=== PATIENT | male | born 1955 | race Caucasian/White ===

== ENCOUNTER 2019-06-18 07:14 | Outpatient (CLI) | payer OTHER, SELFPAY ==
[2019-06-18 07:33] VITALS: BMI 30.5
--- NOTE | 2019-06-18 07:37 | NMCV_ITS ---
NM tereza perf SPECT r/s* [id number] Dominick Garay Age: 64 Gender: M : 1955 Exam Date: 06/18/2019 08:29 Ordering Phys: Galdino Ro MD ([email or web address]) Technologist: CLAUDIA Sanders Exam Location: [facility] Indications: Chest pain STRESS TEST Please [facility] IMAGE PROTOCOL Rest/Stress 1 Lexiscan Day Radiopharmaceutical Dose (mCi) Administration Site Administered by Rest: Tc-99m 10.6 IV CLAUDIA Sanders Sestamibi Stress:Tc-99m 32.9 IV CLAUDIA Sanders Sestamilarisa Rest: 18-Jun-2019 60 Discovery 630 Stress: 18-Jun-2019 60 Discovery 630 0.4mg Lexiscan. Supine position only as patient was unable to lay prone. SPECT RESULTS Technical Quality: Good Raw Data Analysis: Normal Image Corrections: No attenuation or motion correction applied Summed Stress Score: 4 Summed Rest Score: 1 Summed Difference Score: 3 PERFUSION FINDINGS Small to moderate area of decreased tracer uptake in the mid inferolateral, mid anterolateral and apical lateral region with significant reversibility FUNCTIONAL RESULTS (calculated via Gated SPECT) Stress Image LV EF (%): 54 Stress EDV (mL):127 TID: 1.05 Stress ESV (mL):59 FUNCTIONAL FINDINGS: Segmental wall motion analysis revealing mild diffuse hypokinesia of the septum IMPRESSIONS #1. Myocardial perfusion imaging revealing a small to moderate area of reversible defect in the lateral wall region, suggestive of ischemia in the distribution of the left circumflex artery. #2. Normal LV ejection fraction of 54%. #3. LV wall motion analysis revealing mild diffuse hypokinesia of the septum. #4. Slightly elevated LV cavity with an end-systolic volume of 59 mL. No similar previous studies are available for comparison Dr Galdino Ro MD FAC (Electronically Signed) Final Date: 18 June 2019 20:46 S
--- NOTE | 2019-06-18 07:37 | ECG_ITS ---
NAME OF STUDY: LEXISCAN SESTAMIBI STRESS TEST INDICATION: Chest Pain at Rest PROCEDURE: At the baseline, the EKG revealed normal sinus rhythm with normal ST-T's. The baseline blood pressure was 153/75 mm Hg with a heart rate of 82 beats/min. Lexiscan was infused over a period of 20 seconds. A total of 0.4 milligrams of Lexiscan was infused. The stress phase was continued for a total of 5 minutes. Heart rate at the end of the stress phase was 94 with a blood pressure 143/67. The EKG at the peak infusion revealed no significant changes. Sestamibi was injected 20 seconds after the Lexiscan infusion. Blood pressure at the end of the recovery phase was 152/74 with a heart rate of 92 per minute. CONCLUSION: 1. No significant EKG changes with the LexiScan infusion 2. No LexiScan induced chest pain or cardiac arrhythmia 3. Normal blood pressure and heart rate response 4. Sestamibi/sestamibi perfusion scan pending; see separate report. Electronically Signed On 06-20-2019 15:07:27 MEAT AND SEAFOOD CLERK by Galdino Ro M.D. [email or web address]
[2019-06-18] MEDS: regadenoson 0.4 Mg/5 ml Syringe IVP (10:27)
--- NOTE | 2019-06-18 10:29 | SUR.PREOP ---
Patient reports no pain or discomfort prior to the start of the procedure.
[2019-06-18 10:36] VITALS: BP 144/67; PULSE 93
== END 2019-06-18 07:15 | disposition home or self-care (01) ==
LOC: CDL 07:18
PROVIDERS: Family Provider Family Medicine; PCP Family Medicine; Visit Provider Internal Medicine Cardiovascular Disease
DX: R07.89 Other chest pain (principal)
CPT/HCPCS: 78452; 93017; A9500; J2785

== ENCOUNTER 2019-07-16 10:17 | Outpatient (CLI) | payer OTHER, SELFPAY ==
--- NOTE | 2019-07-16 10:15 | USCV_ITS ---
GarayDominick goff Age: 64 Gender: M : 1955 Exam Date: 07/16/2019 10:37 Ordering Phys: Galdino Ro MD ([email or web address]) Technologist: Arden Hester Exam Location: [facility] Indication: CVA 2 YEARS AGO Risk Factors: Previous Vascular Surgery: Right Brachial BP: / Left Brachial BP: / Right Left Velocity (cm/s) Spectral Plaque Velocity (cm/s) Spectral Plaque Syst/Diast Broadening Syst/Diast Broadening 83.60/ 23.10 Prox CCA 80.90 / 20.60 46.20/ 9.50 Mid CCA 46.90 / 12.40 61.60/ 12.50 Hetro Distal CCA 69.70 / 16.70 47.60/ 12.70 Hetro Prox ICA 56.70 / 13.80 49.90/ 18.60 Mid ICA 60.60 / 14.60 69.90/ 23.60 Distal ICA 82.80 / 18.40 94.50 Hetro ECA 81.30 1.51 ICA/CCA 1.77 Antegrade Vertebral Antegrade 61.10/ 16.00 cm/s 43.50/ 10.50 cm/s Bi Subclavian Tri 133.0 180.2 0 0 FINDINGS Moderate heterogeneous irregular plaques at the bifurcation and proximal internal carotid arteries bilaterally. Intimal thickening and minimal plaques in the common carotid arteries bilaterally. Antegrade flow in the vertebral arteries bilaterally. Normal Doppler flow velocities in the external carotid arteries bilaterally CONCLUSIONS Moderate heterogeneous irregular plaques at the bifurcation and proximal internal carotid arteries bilaterally with increased velocity ratios, consistent with 16-49% stenosis bilaterally. Intimal thickening and minimal plaques in the common carotid arteries bilaterally. No previous studies are available for comparison. Dr Galdino Ro MD [facility] (Electronically Signed) Final Date: 17 July 2019 21:35 S
== END 2019-07-16 10:18 | disposition home or self-care (01) ==
LOC: RAD 10:24
PROVIDERS: Family Provider Family Medicine; PCP Family Medicine; Visit Provider Internal Medicine Cardiovascular Disease
DX: I65.23 Occlusion and stenosis of bilateral carotid arteries (principal)
CPT/HCPCS: 93880

== ENCOUNTER 2019-07-24 15:04 | Observation (INO) | payer OTHER, SELFPAY ==
[2019-07-24] VITALS (33 sets, daily range): BP systolic 133–173; BP diastolic 65–95; PULSE 72–84; RESP 14–24; TEMP 36.7–36.9; O2SAT 94–99; BMI 30.5
--- NOTE | 2019-07-24 05:35 | XR_ITS ---
WS: [id number] Chest 2 views, 07/24/2019 Clinical Data: chest pain Comparison: Portable chest, 09/07/2016 Findings: No nodules, masses or effusions are seen. The heart is normal. The pulmonary vascularity is not increased. No pneumonia or pneumothorax is seen. There is a small electronic device overlying th e left cardiac border. The aortic arch and descending aorta show minimal tortuosity. XR/XR chest 2V* [id number] Impression: Atherosclerosis
[2019-07-24 06:07] LABS: Basophils % 0.5 %; Eosinophils # 0.2 10^3/uL (0.0-0.8); Hematocrit 40.9 % (42.0-52.0); Hemoglobin 13.7 g/dL (11.7-16.6); Lymphocytes % 33.5 %; Mean Corpuscular HGB Conc 33.5 g/dL (30.0-36.0); Mean Corpuscular Hemoglobin 30.6 pg (28.0-34.0); Mean Corpuscular Volume 91.5 fL (80-94); Mean Platelet Volume 9.6 fL (7.4-10.4); Monocytes # 0.6 10^3/uL (0.2-0.9); Monocytes % 10.3 %; Neutrophils # 3.2 10^3/uL (1.8-7.7); Neutrophils % 52.4 %; Nucleated Red Blood Cells % 0 %; Platelet Count 417 10^3/cmm (130-400); Red Blood Count 4.47 10^6/uL (4.1-5.3); Red Cell Distribution Width 12.7 % (12.1-15.1); White Blood Count 6.1 10^3/uL (4.0-10.0)
--- NOTE | 2019-07-24 06:07 | SUR.PREOP ---
Patient arrived early today (05) at ordering MD request for preoperative blood work. Drawn as ordered. Patient prepped and ready for cath procedure by 0615. Procedure to start at 0700. Family/patient aware. Call light placed within reach. Informed to call for needs.
[2019-07-24 06:10] LABS: INR 0.93 (0.8-1.2)
[2019-07-24] MEDS: diphenhydrAMINE 50 mg Capsule PO (06:14)
[2019-07-24 06:23] LABS: Anion Gap 15.7 (5-19); Blood Urea Nitrogen 14 mg/dL (8-23); Carbon Dioxide 26 mmol/L (22-29); Chloride 101 mmol/L (98-107); Glucose 416 mg/dL (65-115); Osmolality Calculated 302 mOsm/kg (285-295); Potassium 3.7 mmol/L (3.5-5.1); Sodium 139 mmol/L (136-145)
--- NOTE | 2019-07-24 07:00 | XACV_ITS ---
Ht: 178 cm Wt: 97 kg BSA: 2.21 m2 Gender: Male : 1955 Any Known Allergies: Other Exam Priority: Routine Procedure(s): Procedure Description: Diagnostic procedure Procedure Description: PCI procedure Procedure Description: Left Heart Catheterization Procedure Description: Drug Eluting Coronary Stent Procedure Description: PTCA Procedure Description: Miscellaneous Procedure Description: ACT Procedure Description: Coronary Angiography Diagnostic Cath Status: Elective Diagnostic Findings The left main is a medium to large caliber vessel with no significant stenotic lesions. The left artery descending artery is a medium caliber vessel which appears to wrap around the LV apex. The mid LAD was found to have mild diffuse disease. The distal area was found to have minimal intimal irregularities. No significant stenotic lesions. The left circumflex artery is a medium caliber dominant vessel which appears to gives off a large obtuse marginal branch. This branch was found to have a proximal eccentric around 85% lesion. The distal segment of this artery was found to have mild diffuse disease. The right coronary artery is a medium caliber vessel which was found to have a widely patent stented segment at the midportion. The PLV branch was found to have moderate diffuse narrowing of the mid segment. The PDA branch was found to have mild to moderate diffuse disease. PCI Status: Elective PCI Indication: New Onset Angina <= 2 months Interventional Findings Indication for coronary angiogram: Abnormal stress test. Successful PCI to mid OM. Lesion was prepared with 2.0 x 15 mm AB TREK balloon, followed by deployment of KELLEN INTEGRITY 3.0 x 15 mm stent posted at high ANSELMO of 14 to ensure proper approximation. Excellent angiographic result with SE-3 flow was achieved. . Conclusions This is a 64-year-old white male with history of hypertension, diabetes, coronary artery disease, status post PCI of the RCA lesion in 2017, presented with increasing fatigue/dyspnea on exertion and chest pain. Myocardial perfusion imaging revealed a moderate area of ischemia in the distribution of the left circumflex artery. For further evaluation of his coronary status, a cardiac catheterization was recommended. Patient underwent left heart catheterization with left and right coronary angiogram today. The findings are as follows. There was a high-grade lesion in the first obtuse marginal branch of the circumflex artery. The stented segment of the right coronary artery was found to be patent. Mild to moderate diffuse disease in the other vessels. The LVEDP was 12 mmHg. Recommendations I discussed the cardiac catheterization data with Dr. Villa. Based on the above findings, it was thought to be appropriate to consider PCI of the circumflex artery lesion. Dr. Villa agreed with this plan. He took over further management of this patient at this point. 1-Return to inpatient for close monitoring and routine cath care2-Risk factor modification for secondary prevention3-Statin and aspirin 81 mg life-long, if tolerated4-Continue Plavix 75mg p.o. daily for at least one year. We will assess at the end of one year again to continue if further or not5-Continue optimal medical management6-Follow up with Dr. Ro in four weeks and your primary care in 10 days. Diagnostic RX Recommendation: PCI w/o planned CABG Pressures Phase:Rest AO : 105 mmHg / 58 mmHg ( 79 mmHg ) @ 1:06:00 AM 150 mmHg / 9 mmHg ( 43 mmHg ) @ 1:12:00 AM 138 mmHg / 36 mmHg ( 78 mmHg ) @ 1:13:00 AM 141 mmHg / 63 mmHg ( 93 mmHg ) @ 1:33:00 AM 135 mmHg / 62 mmHg ( 92 mmHg ) @ 1:44:00 AM 157 mmHg / 84 mmHg ( 117 mmHg ) @ 3:18:00 AM LV : 159 mmHg / -3 mmHg / @ 1:12:00 AM Clinical Evaluation EBL: 5mL-10mL Procedural Details Procedure Consent Obtained. Pre-Procedure Time Out. Identified patient by full name and date of as verbalized by the patient/guarantor. Does the consent match the physician's order: Yes. Accurate & Complete Informed Consent: Yes. Inpatient/Outpatient History & Physical on Chart: Yes. If H&P is completed, is and addenduem needed: No; If yes, is the addendum complete: N/A. Visualize and Verify Site with Patient/Guarantor: N/A. Relevant Radiology Images available: N/A. Pre-op teaching completed and patient verbalized understanding. The risks, benefits, and alternatives of sedation and/or procedure were discussed by physician. The patient agrees to continue. Procedure started. [facility] Clinical Fraility Score: 3: Managing Well. 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 Chest Pain Symptom Assessment: Typical Angina Symptoms. Cardiovascular Instability: No. Correct patient, site and procedure confirmed by cath team. PERRLA. Strong, equal hand application assistant bilaterally. Lungs clear x 5 lobes. IV Site on Arrival: 20 gauge in the left forearm. IV Fluids: 0.9% NaCl at KVO. 0 mL infused prior to yard labor supervisor. Pre Procedural Pulses: bilateral dorsalis pedis was 3+. Pre Procedural Pulses: bilateral posterior tibial was 3+. Pre Procedural Pulses: bilateral radial was 3+. Oxygen started at 2liters/min via nasal canula. bilateral groins was prepped with chloroprep then draped in the usual sterile fashion. Physician arrived. Baseline sample Acquired. HR: 79 BPM. Equipment: 5F - Radial. Cardiac Cath Pack. ACIST Manifold Kit Model BT 2000. Heparinized Saline (2 units/mL), 1000 mL bag. Physician scrubbed in. Immediate Pre-Procedure Time Out. Correct Patient: Yes; Correct Procedure: Yes; Correct Site: Yes; Correct Patient Position: Yes; Correct Supplies: Yes; Dried Flammable Prep: Yes; Blood Products Available: N/A;. Lidocaine 1% infiltrated to the right radial. Arterial access obtained. A Valeritasumo 5 Fr Marcos Radial Catheter, 110cm was advanced over the wire and used for Left coronary angiography. Multiple views taken of left coronary artery. Called Dr Monahan to come view pictures. Catheter redirected to the RCA. Catheter removed over the exchange wire. A CRD 5F JR4 Diagnostic Catheter was advanced over the wire and used for Right coronary angiography. Dr Monahan arrived. EDP Sample taken: LV 159/-4,12; HR: 80 BPM; SpO2: 95%. Pullback taken: LV Off; AO Off; Mean: , Peak to Peak: , SEP: ; HR: 80 BPM; SpO2: 95%. Family updated. Dr Ro calling to Dr Villa to come for intervention. Side port of sheath attached to Normal Saline flush at KVO to maintain patency. Dr Villa arrived. Dr. Villa scrubbed in to perform intervention. Inventory is Agile Energygar XT .014 190cm Str. Guidewire. Inventory is CRD 6 FR XB 3.5 GUIDE. 6 ivorian XB 3.5 guide catheter was inserted over the wire. Unable to seat guide catheter. Guide catheter out. Inventory is CRD 6FR JL 4 GUIDE. 6 ivorian JL 4 guide catheter was inserted over the wire. Unable to seat Guide. Guide catheter out. Inventory is CRD 6FR AL .75 GUIDE. 6 ivorian AL 0.75 guide catheter was inserted over the wire. Patient's family updated. Inventory is CRD 6FR XB 3 GUIDE. 6 ivorian XB 3 guide catheter was inserted over the wire. [place] guidewire was advanced through the guide catheter to lesion in the mid Circ. Inflation number : 1 A AB MINI TREK 2.00X15 RX BALLOON was prepped and advanced across the Mid CX , then inflated to 8 ANSELMO for 0:10 seconds. Inflation number: 2 The AB MINI TREK 2.00X15 RX BALLOON was reinflated across the Mid CX, to 12 ANSELMO for 0:09 seconds. Balloon out. Inflation Number : 3 A MDT R KELLEN 3.0X15 AUDREY -Lot Number# [id number] (exp date 04/10/2021) was prepped and advanced across the Mid CX. The stent was deployed at 12 ANSELMO for 0:16 seconds. Results checked. Stent balloon and wire out. ACT drawn. Results 170 seconds. Therapeutic limits - pre-heparin administration 90-150 seconds and monitoring heparin during a vascular procedure >250 seconds. Guide catheter out. Physician scrubbed out. A TR Band was successful obtaining hemostatsis at the Right Radial artery insertion site. TR band placed. Hemostasis obtained. Post Procedure: Pulses reassessed and unchanged. PERRLA. Strong, equal hand application assistant bilaterally. No VTE prophylaxis required. Total IV fluids: 118 mL. Medication's Wasted: Lidocaine 1% = 18 mL. Medication's Wasted: Heparin = 4000 units. Medication's Wasted: Nitro = 49.8 mg. Complications: none. Estimated blood loss: 5mL-10mL. Procedure completed. Patient transferred by wheelchair to CPRU. Vital chart was stopped. Site: Right Radial artery Sheath Size: 6 Fr Hemostasis Method: TR Band Hemostasis Success: Successful Procedure Medications Start: 6:47 AM Stop: 6:47 AM Medication: Fentanyl Amount: 50 mcg Route: I.V. Start: 6:50 AM Stop: 6:50 AM Medication: Versed Amount: 1 mg Route: I.V. Start: 6:50 AM Stop: 6:50 AM Medication: Fentanyl Amount: 50 mcg Route: I.V. Start: 6:57 AM Stop: 6:57 AM Medication: Versed Amount: 1 mg Route: I.V. Start: 7:02 AM Stop: 7:02 AM Medication: Verapamil Amount: 5 mg Route: I.A. Start: 7:02 AM Stop: 7:02 AM Medication: Nitrogylcerin Amount: 200 mcg Route: I.A. Start: 7:39 AM Stop: 7:39 AM Medication: Versed Amount: 1 mg Route: I.V. Start: 7:39 AM Stop: 7:39 AM Medication: Fentanyl Amount: 50 mcg Route: I.V. Start: 7:45 AM Stop: 7:45 AM Medication: Heparin Amount: 3000 units Route: I.V. Start: 7:20 AM Stop: 7:20 AM Medication: Versed Amount: 1 mg Route: I.V. Start: 7:04 AM Stop: 7:04 AM Medication: Heparin Amount: 5000 units Route: I.V. Start: 8:07 AM Stop: 8:07 AM Medication: Heparin Amount: 1000 units Route: I.V. Start: 8:17 AM Stop: 8:17 AM Medication: Versed Amount: 1 mg Route: I.V. Start: 8:22 AM Stop: 8:22 AM Medication: Heparin Amount: 3000 units Route: I.V. Start: 8:28 AM Stop: 8:28 AM Medication: Plavix Amount: 300 mg Route: P.O. I, the attending physician, have reviewed and verified all procedure medications. Yes, all medications given per verbal order History/Risk Factors Hypertension: Yes Dyslipidemia: Yes Diabetic Therapy: Insulin Peripheral Arterial Disease (PAD): No Myocardial Infarction (UT): No Obesity: Yes Renal Disease: No Tobacco Use: Never Prior Interventions PCI: No CABG: No Valve Surgery: No Report Signatures Interventional Workflow - Finalized by: Levon Villa MD on 07/27/2019 9:00:17 PM Diagnostic Workflow - Finalized by:Dr Galdino Ro MD [facility] on 07/24/2019 9:47:47 AM
--- NOTE | 2019-07-24 08:30 | SUR.PHASEI ---
POST PROCEDURE NOTE Patient to CPRU-3 via wheelchair. Status post left heart cath via the right radial approach. TR band in place- no hematoma or s/s of active bleed. Verbal post cath instructions given to the patient/family. Verbalized understanding. See PRE/POST CATH FLOWSHEET FOR DETAILS OF ASSESSMENT.
[2019-07-24] MEDS: metoprolol tartrate 50 mg Tablet PO ×2 (09:33→18:03)
[2019-07-24] MEDS: meloxicam 7.5 mg tablet PO (09:33)
[2019-07-24] MEDS: hydroCHLOROthiazide 25 mg Tablet PO (09:33)
[2019-07-24] MEDS: cholecalciferol (vitamin D3) 1,000 unit Tablet 1000 UNIT PO (09:33)
[2019-07-24] MEDS: lisinopril 20 mg Tablet 40 MG PO (09:34)
[2019-07-24] MEDS: montelukast sodium 10 mg Tablet PO (09:34)
[2019-07-24] MEDS: ferrous gluconate 324 mg Tablet PO (09:35)
[2019-07-24] MEDS: gabapentin 400 mg Capsule 1200 MG PO ×2 (09:35→21:02)
[2019-07-24] MEDS: gemfibrozil 600 mg Tablet PO ×2 (09:35→18:03)
[2019-07-24] MEDS: pantoprazole DR 40 mg Tablet PO (09:35)
[2019-07-24] MEDS: insulin glargine 100 units/1 mL 60 UNIT SUBCUT ×2 (09:57→18:22)
[2019-07-24 09:59] LABS: Glucose Point of Care 265 mg/dL (70-110)
[2019-07-24] MEDS: amlodipine 5 mg Tablet PO (10:00)
[2019-07-24] MEDS: cetirizine 10 mg Tablet PO (10:00)
--- NOTE | 2019-07-24 10:30 | SUR.PHASEI ---
TR BAND TR Band deflated per protocol. No hematoma or s/so of active bleed at this time.
--- NOTE | 2019-07-24 11:44 | SUR.PHASEI ---
TR BAND DOWN TR Band down per protcol and removed. No hematom noted.
[2019-07-24] MEDS: cyclobenzaprine 10 mg Tablet PO (21:02)
[2019-07-24] MEDS: zolpidem 5 mg Tablet PO (21:02)
[2019-07-24] MEDS: latanoprost 0.005% Op Soln 2.5 mL Btl OPHTHALMIC (21:04)
[2019-07-25 01:07] LABS: Glucose Point of Care 341 mg/dL (70-110)
[2019-07-25 03:00] VITALS: BP 137/75; PULSE 82; RESP 18; TEMP 36.9; O2SAT 95
[2019-07-25] MEDS: sodium chloride 0.9% 1,000 ML 100 ML IV (04:47)
--- NOTE | 2019-07-25 06:10 | PC.NURSE ---
TR BAND WAS ALREADY REMOVED. THERE WAS A 2X2 OVER THE SITE AND WRAPPED WITH COBAN. DRESSING WAS C/D/I. NO HEMATOMA PRESENT. WILL CONTINUE TO MONITOR.
[2019-07-25 07:00] VITALS: BP 137/79; PULSE 85; RESP 17; TEMP 37; O2SAT 94
[2019-07-25 07:11] LABS: Glucose Point of Care 200 mg/dL (70-110)
[2019-07-25] MEDS: lisinopril 20 mg Tablet 40 MG PO (09:29)
[2019-07-25] MEDS: meloxicam 7.5 mg tablet PO (09:29)
[2019-07-25] MEDS: ferrous gluconate 324 mg Tablet PO (09:29)
[2019-07-25] MEDS: metoprolol tartrate 50 mg Tablet PO (09:30)
[2019-07-25] MEDS: gemfibrozil 600 mg Tablet PO (09:30)
[2019-07-25] MEDS: hydroCHLOROthiazide 25 mg Tablet PO (09:30)
[2019-07-25] MEDS: cetirizine 10 mg Tablet PO (09:30)
[2019-07-25] MEDS: cholecalciferol (vitamin D3) 1,000 unit Tablet 1000 UNIT PO (09:30)
[2019-07-25] MEDS: clopidogrel 75 mg Tablet PO (09:30)
[2019-07-25] MEDS: montelukast sodium 10 mg Tablet PO (09:30)
[2019-07-25] MEDS: pantoprazole DR 40 mg Tablet PO (09:30)
[2019-07-25] MEDS: gabapentin 400 mg Capsule 1200 MG PO (09:30)
[2019-07-25] MEDS: amlodipine 5 mg Tablet PO (09:30)
[2019-07-25] MEDS: insulin glargine 100 units/1 mL 60 UNIT SUBCUT (09:31)
--- NOTE | 2019-07-25 10:34 | PC.CHAP ---
Pastoral Care Encounter/Spiritual Assessment Type of Contact [] Declined housekeeping coordinator visit [] Patient/Family/Request visit [] Outpatient visit [] Follow-up visit [] Physician referral [] Code/Alert [] Routine visit [] Staff referral [] Actively dying [x] Patient sleeping [] Family support [] [] Out of room [] Palliative care [] [] Receiving care in room [] Pre-surgical visit [] Trauma [] Long length of stay [] ICU visit [] Other: Relational/Emotional Strength [] Patient feels connected with others/family/visitors/staff [] Distress [] Loneliness/isolation [] Abandonment Spirituality of Patient [] Person of Anna [] Attends Presybeterian of their Anna [] Believes in Prayer [] Reads Bible or Latter Day materials [] There are Spiritual issues to be addressed Poiser Balance Interventions [] Prayer [] Active listening [] Non-anxious presence [] Spiritual/emotional support [] Crisis/trauma care [] Spiritual counseling [] Bereavement support [] Provided bereavement packet [] Provided Bible/devotional materials [] Provided toy/stuffed animal, coloring book to patient or family member [] Provided Communion [] Anointing/[place] [] Salvation [x] Completed spiritual assessment [] Other: Impact on Illness or Injury [] Angry [] Fearful [] Anxious [] Often cries [] Exhaustion [] Unable to work [] Unable to attend synagogue [] Unable to walk/stand [] Unable to read [] Unable to drive [] Unable to eat/drink [] Unable to sleep [] Unable to be with family [] Patient intubated [] Other: Summary Time spent with patient
[2019-07-25 10:52] VITALS: BP 154/84; PULSE 79; RESP 16; O2SAT 96
[2019-07-25 11:25] LABS: Glucose Point of Care 334 mg/dL (70-110)
[2019-07-25 12:21] LABS: Blood Urea Nitrogen 14 mg/dL (8-23); Calcium 9.8 mg/dL (8.5-10.5); Carbon Dioxide 28 mmol/L (22-29); Chloride 101 mmol/L (98-107); Glomerular Filtration Rate 75.2 mL/min (90-130); Glucose 298 mg/dL (65-115); Osmolality Calculated 293 mOsm/kg (285-295); Sodium 138 mmol/L (136-145)
[2019-07-25 14:44] VITALS: BP 150/79; PULSE 78; RESP 15; O2SAT 97
[2019-07-25 15:08] VITALS: BP 150/79; PULSE 78; RESP 15; TEMP 37; O2SAT 97
--- NOTE | 2019-09-08 13:15 | W.PM.OPSUD ---
Surgery/Procedure H&P Update DATE OF PROCEDURE: July 25 2019 DATE H&P PERFORMED: 06/27/19 H&P UPDATE INFORMATION: I have reviewed H&P completed within last 30 days, I have examined patient prior to procedure and No changes to prior documentation PLANNED PROCEDURE: Operation Date: 07/24/19 07:00 Proposed Procedures p Cardiac Catheterization(Left) - Galdino Ro MD PHYSICAL EXAM: alert, oriented x 3, clear to auscultation bilaterally and regular rate & rhythm AIRWAY EVAL/ANESTHESIA PLAN: ASA III, Local Anesthesia, Risks, benefits & alternatives of sedation and/or procedure discussed and Patient agrees to continue as planned
== END 2019-07-25 15:20 | disposition home or self-care (01) ==
LOC: CSU 15:04
PROVIDERS: Internal Medicine Cardiovascular Disease; Admitting Provider Internal Medicine Cardiovascular Disease; Family Provider Family Medicine; PCP Family Medicine; Visit Provider Internal Medicine Cardiovascular Disease
DX: R94.39 Abnormal result of other cardiovascular function study (principal); I10 Essential (primary) hypertension; E78.5 Hyperlipidemia, unspecified; E66.9 Obesity, unspecified; Z68.30 Body mass index [BMI] 30.0-30.9, adult; E78.00 Pure hypercholesterolemia, unspecified; I65.23 Occlusion and stenosis of bilateral carotid arteries; I25.10 Atherosclerotic heart disease of native coronary artery without angina pectoris; Z86.73 Personal history of transient ischemic attack (TIA), and cerebral infarction without residual deficits; Z79.4 Long term (current) use of insulin
CPT/HCPCS: 12345; 36415; 36416; 71046; 80048; 82962; 85025; 85347; 85610; 86850; 86900; 93452; 96372; C1725; C1769; C1874; C1887; C1894; C9600; G0378; J1644; J1815; J2001; J2250; J3010; J3490; J7030; Q0163; Q9967

== ENCOUNTER → 2020-02-18 12:35 | Outpatient (BNVA) | payer OTHER, SELFPAY | PROVIDERS: Family Provider Family Medicine; PCP Family Medicine; Visit Provider Nurse Practitioner | DX: Z11.59 Encounter for screening for other viral diseases (principal); Z12.11 Encounter for screening for malignant neoplasm of colon | CPT/HCPCS: 87635 ==

== ENCOUNTER 2020-02-22 07:45 | Day surgery (SDC) | payer OTHER, SELFPAY ==
[2020-02-19 11:44] VITALS: BMI 30.9
[2020-02-22 07:54] VITALS: BP 125/73; PULSE 71; RESP 18; TEMP 36.2; O2SAT 97
[2020-02-22 08:08] LABS: Glucose Point of Care 105 mg/dL (70-110)
[2020-02-22] MEDS: sodium chloride 0.9% 1,000 ML 30 ML IV (08:11)
--- NOTE | 2020-02-22 08:39 | ANES.PREANE2 ---
Pre-Anesthetic Assessment Pre-Anesthetic Assessment: Height/Weight: Height 1.78 m Weight 97.976 kg Temp Pulse Resp BP Pulse Ox 97.2 F L 71 18 125/73 97 02/22/20 07:54 02/22/20 07:54 02/22/20 07:54 02/22/20 07:54 02/22/20 07:54 Preop Diagnosis: s Proposed Procedure: Operation Date: 02/22/20 09:00 Proposed Procedures p Colonoscopy 70001 Z12.11(Not Applicable) - Lorenzo Arias MD Was Beta Miguel taken within 24 hours: Yes Last intake: Intake Last Liquid Date 02/21/20 Last Liquid Time 23:00 Last Solid Date 02/20/20 Last Solid Time 23:30 Social: Social History: No alcohol and No tobacco Exam: Pre-Anes Outpt Exam: alert, oriented x 3, clear to auscultation bilaterally and regular rate & rhythm Airway: Submandibular: WNL Cervical ROM: WNL Dentition: Full History/ROS: No significant complaints Pulmonary: Pulmonary: None reported CV/HEM: CV/HEM: CAD, HTN and MO : : None reported Hepatic: Hepatic: None reported GI: GI: None reported Metabolic: Metabolic: DM Musc/skel: Musc/skel: None reported Neuropsych: Neuropsych: None reported Anesthetic Plan: ASA status: 3 Anesthesia: MAC Meds/Allergies Current Medications: Current Medications Generic Name Dose Route Start Last Admin Trade Name Freq PRN Reason Stop Dose Admin Sodium Chloride 1,000 mls @ 30 ml s/hr 02/22/20 07:30 02/22/20 08:11 Sodium Chloride 0.9% IV 30 mls/hr .Q24H YASEMIN Administration PFSH Anesthesia PFSH: Medical History (Updated 02/05/20 @ 11:18 by Lorenzo Arias MD) Acute depression ASHD (arteriosclerotic heart disease) Patient had cardiac catheterization in September 2016. He was found to have a high-grade lesion in the mid RCA which was intervened by Dr. Monahan. He had a mild diffuse disease in the other vessels. LV ejection fraction was around 60%. LVEDP was 25 mmHg. Benign essential hypertension Bilateral carotid artery stenosis 08/03/2019 Moderate heterogeneous irregular plaques at the bifurcation and proximal internal carotid arteries bilaterally with increased velocity ratios, consistent with 16-49% stenosis bilaterally. Intimal thickening and minimal plaques in the common carotid arteries bilaterally. No previous studies are available for comparison. 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 Cerebrovascular disease, acute Chronic lumbosacral pain Claustrophobia Cryptogenic stroke Diabetic neuropathy Encounter for loop recorder check GERD without esophagitis Glaucoma H/O: CVA (cerebrovascular accident) Hypercholesterolemia Memory loss Mixed hyperlipidemia Obstructive sleep apnea Osteoporosis, idiopathic Palpitations Personality change Seizure-like activity Type 2 diabetes mellitus without complications Surgical History H/O arthroscopic knee surgery Family History Other CAD (coronary artery disease) Diabetes Hypertension Myocardial infarction Social History (Updated 02/05/20 @ 10:47 by Joy Lopez, CT) Smoking and tobacco status: never smoked Alcohol intake: never History of recent travel: No Data Anesthesia Other Labs: Laboratory Results - last 48 hr 02/22/20 08:05 POC Glucose 105 Cardiac Studies: No Data to Display
--- NOTE | 2020-02-22 09:28 | W.PM.OPSUD ---
Surgery/Procedure H&P Update DATE OF PROCEDURE: February 22, 2020 DATE H&P PERFORMED: 02/05/20 PREOP DIAGNOSIS: s PLANNED PROCEDURE: Operation Date: 02/22/20 09:00 Proposed Procedures p Colonoscopy 22625 Z12.11(Not Applicable) - Lorenzo Arias MD
[2020-02-22 09:42] VITALS: BP 137/72; PULSE 62; RESP 18; TEMP 36.1; O2SAT 94
--- NOTE | 2020-02-22 09:46 | ANE.PACU2 ---
Inpatient post-anesthesia follow up: Airway intact: Yes Vital signs: Temperature 97.2 F Pulse Rate 71 Respiratory Rate 18 Blood Pressure 125/73 Pulse Oximetry 97 Oxygen Delivery Me thod Room Air Oxygen Flow Rate Fraction of Inspir ed Oxygen Hydration adequate: Yes Nausea and vomiting: No Pain level: 1 Mental status: Baseline
[2020-02-22 09:52] VITALS: BP 137/72; PULSE 62; RESP 18; O2SAT 99
== END 2020-02-22 10:15 | disposition home or self-care (01) ==
PROVIDERS: PCP Family Medicine; Visit Provider Internal Medicine
PROC: 0DJD8ZZ Inspection of Lower Intestinal Tract, Via Natural or Artificial Opening Endoscopic (ICD-10-PCS; CPT 45378; principal; 2020-02-22 09:00)
DX: Z12.11 Encounter for screening for malignant neoplasm of colon (principal); I25.10 Atherosclerotic heart disease of native coronary artery without angina pectoris; I10 Essential (primary) hypertension; I25.2 Old myocardial infarction; E11.40 Type 2 diabetes mellitus with diabetic neuropathy, unspecified; E78.2 Mixed hyperlipidemia; G47.33 Obstructive sleep apnea (adult) (pediatric); K21.9 Gastro-esophageal reflux disease without esophagitis; M81.0 Age-related osteoporosis without current pathological fracture; E78.00 Pure hypercholesterolemia, unspecified
CPT/HCPCS: 12345; 36416; 45378; 82962; J2704; J7030

== ENCOUNTER 2021-06-12 09:25 | Outpatient (CLI) | payer OTHER, SELFPAY ==
--- NOTE | 2021-06-12 09:47 | US_ITS ---
WS: [id number] ULTRASOUND SOFT TISSUES RIGHT neck. HISTORY: LUMP NOTED AT BASE OF R MANDIBLE, JUST BELOW R EAR LOBE COMPARISON: None available. TECHNIQUE: 2-D and color Doppler imaging is submitted. Ultrasound is directed along the RIGHT cervical region in the area of pain as directed by the patient . No lymph nodes are identified. No solid or cystic masses. The visualized thyroid gland is negative. US/US soft tissue/extremity [id number] IMPRESSION: Negative ultrasound of the RIGHT neck in the area of pain.
== END 2021-06-12 09:26 | disposition home or self-care (01) ==
LOC: RAD 09:31
PROVIDERS: PCP Family Medicine; Visit Provider Nurse Practitioner
DX: R22.1 Localized swelling, mass and lump, neck (principal)
CPT/HCPCS: 76882

== ENCOUNTER → 2021-08-20 09:48 | Outpatient (BNVA) | payer OTHER, SELFPAY | PROVIDERS: PCP Family Medicine; Visit Provider Internal Medicine Cardiovascular Disease | DX: Z45.09 Encounter for adjustment and management of other cardiac device (principal); E78.00 Pure hypercholesterolemia, unspecified; I65.23 Occlusion and stenosis of bilateral carotid arteries; I10 Essential (primary) hypertension; R01.1 Cardiac murmur, unspecified; Z79.51 Long term (current) use of inhaled steroids; E11.9 Type 2 diabetes mellitus without complications; Z79.4 Long term (current) use of insulin | CPT/HCPCS: 99214 ==

== ENCOUNTER 2021-09-28 11:57 | Outpatient (CLI) | payer OTHER, SELFPAY ==
--- NOTE | 2021-09-28 12:13 | USCV_ITS ---
GarayDominick goff Age: 66 Gender: M : 1955 Exam Date: 09/28/2021 12:50 Ordering Phys: Galdino Ro MD ([email or web address]) Technologist: [place] [facility] [place]: cca disease Risk Factors: Smoker Previous Vascular Surgery: Right Brachial BP: / Left Brachial BP: / Right Left Velocity (cm/s) Spectral Plaque Velocity (cm/s) Spectral Plaque Syst/Diast Broadening Syst/Diast Broadening 72.80/ 12.10 Prox CCA 50.40 / 12.60 67.30/ 15.40 Mid CCA 51.90 / 12.50 70.60/ 14.30 Hetro Distal CCA 60.60 / 11.50 72.30/ 21.00 Hetro Prox ICA 135.00/ 19.30 Hetro 60.50/ 16.00 Hetro Mid ICA 133.20/ 17.50 Hetro 65.50/ 12.60 Distal ICA 92.80 / 14.90 Hetro 144.40 ECA 123.00 0.99 ICA/CCA 2.23 Antegrade Vertebral Antegrade 47.10/ 6.70 cm/s 35.00/ 11.90 cm/s Tri Subclavian Tri 89.90 100.6 0 FINDINGS Mild to moderate plaques at the bifurcations and proximal internal carotid arteries bilaterally. Intimal thickening in the common carotid arteries bilaterally. Antegrade flow in the vertebral arteries bilaterally. Normal Doppler flow velocities in the vertebral and subclavian arteries bilaterally CONCLUSIONS Mild to moderate plaques at the bifurcations and proximal internal carotid arteries bilaterally with Doppler features suggesting less than 50% stenosis. Intimal thickening in the common carotid arteries bilaterally. Compared to the study from 07/16/2019, there may not be a significant change Dr Galdino Ro MD [facility] (Electronically Signed) Final Date: 29 Sep 2021 09:08 S
--- NOTE | 2021-09-28 12:13 | USCV_ITS ---
Dominick Garay Age: 66 Gender: M : 1955 Exam Date: 09/28/2021 12:35 Ordering Phys: Galdino Ro MD ([email or web address]) Technologist: Exam [place] [facility] [place] [facility] [place]ication: cad BP: 130 / 75 HR: 68 Rhythm: Sinus Technical Quality: Adequate MEASUREMENTS (Male / Female) Normal Values 2D ECHO LV Diastolic Diameter PLAX 3.4 cm 4.2 - 5.9 / 3.9 - 5.3 cm LV Systolic Diameter PLAX 2.3 cm IVS Diastolic Thickness 2.1 cm 0.6 - 1.0 / 0.6 - 0.9 cm IVS Systolic Thickness 1.9 cm LVPW Diastolic Thickness 1.8 cm 0.6 - 1.0 / 0.6 - 0.9 cm LVPW Systolic Thickness 2.2 cm LVOT Diameter 2.0 cm LV Ejection Fraction 2D Teich 61.7 % LV Ejection Fraction MOD 2C 56.4 % LV Ejection Fraction 2C AL 56.1 % LA Diameter 4.4 cm IVC Diameter 1.3 cm M-MODE Aortic Annulus Diameter 3.4 cm LA Ao Ratio MM 1.3 MV E Point Septal Separation 1.0 cm DOPPLER AV Peak Velocity 231.3 cm/s LVOT Peak Velocity 81.0 cm/s AV Area Cont Eq vti 1.2 cm squared AV Area Cont Eq pk 1.2 cm squared MV Area PHT 5.0 cm squared Mitral E to A Ratio 1.0 MV E' Velocity 75.0 cm/s Mitral E to MV E' Ratio 18.7 Mitral E to LV E' Lateral Ratio 14.7 Mitral E to LV E' Septal Ratio 25.9 TR Peak Velocity 146.0 cm/s TR Peak Gradient 8.5 mmHg TV Peak E Velocity 120.0 cm/s Right Atrial Pressure 3.0 mmHg Pulmonary Artery Systolic Pressu 11.5 mmHg PV Peak Velocity 83.0 cm/s FINDINGS Left Ventricle Normal left ventricular size and systolic function, EF 62 %. No regional wall motion abnormalities.moderate left ventricular hypertrophy. Grade I/IV diastolic dysfunction (abnormal relaxation filling pattern), normal to mildly elevated filling pressures. Right Ventricle The right ventricle is normal in size and function. Right Atrium The right atrium is normal in size. Left Atrium The left atrium is normal in size. Mitral Valve Thickened mitral valve. Mild mitral valve regurgitation. Aortic Valve Moderate aortic valve calcification. Thickened aortic valve. Moderate aortic valve stenosis, mean gradient 8.3 mmHg, VICTORINA 1.2 cm squared. Tricuspid Valve Normal gross abnormalities noted Pulmonic Valve Normal gross abnormalities noted Pericardium Normal pericardium without effusion. Aorta Normal ascending aorta dimension. IVC The inferior vena cava pulmonary and hepatic veins appear normal. CONCLUSIONS Normal left ventricular size and systolic function, EF 62 %. No regional wall motion abnormalities.moderate left ventricular hypertrophy. Grade I/IV diastolic dysfunction (abnormal relaxation filling pattern), normal to mildly elevated filling pressures. Moderate aortic valve calcification. Thickened aortic valve. Moderate aortic valve stenosis, mean gradient 8.3 mmHg, VICTORINA 1.2 cm squared. Thickened mitral valve. Mild mitral valve regurgitation. There is no pericardial effusion. There are no intracardiac masses. Compared to the study from 09/07/2016, now there is development of aortic valve stenosis Dr Galdino Ro MD FAC (Electronically Signed) Final Date: 28 Sep 2021 18:08 S
== END 2021-09-28 11:58 | disposition home or self-care (01) ==
LOC: RAD 12:04
PROVIDERS: PCP Family Medicine; Visit Provider Internal Medicine Cardiovascular Disease
DX: I65.23 Occlusion and stenosis of bilateral carotid arteries (principal); I35.8 Other nonrheumatic aortic valve disorders; R06.00 Dyspnea, unspecified
CPT/HCPCS: 93306; 93880

== ENCOUNTER 2022-01-29 12:30 | Outpatient (CLI) | payer OTHER, SELFPAY ==
--- NOTE | 2022-01-29 12:41 | US_ITS ---
WS: [id number] ULTRASOUND RENAL TECHNIQUE: Ultrasound examination of both kidneys. CLINICAL INFORMATION: STAGE 3A CHRONIC KIDNEY DZ COMPARISON: None. FINDINGS: RIGHT: Right kidney is normal in size and appearance. Echogenicity: Normal. Cortical thickness: 2.2 cm; Normal. Hydronephrosis: None. Perinephric fluid: None. Right kidney measures: 11.5 cm x 5.1 cm x 5.3 cm. LEFT: Left kidney is normal in size and appearance. Echogenicity: Normal. Cortical thickness: 1.8 cm; Normal. Hydronephrosis: None. Perinephric fluid: None. Left kidney measures: 11.5 cm x 4.9 cm x 5.2 cm. Normal visualized aorta. Enlarged nodular prostate described below. Associated bladder outlet obstruc tion. US/US renal BI* [id number] IMPRESSION: 1. Kidneys are normal in appearance. No hydronephrosis. 2. Markedly enlarged nodular prostate partially visualized measuring 5.2 x 5.7 cm where visualized. Associated bladder outlet obstruction with diffuse bladde r wall thickening. 3. Recommend correlation PSA. Nodular Prostate enlargement suspicious for lane plasia/hyperplasia.
== END 2022-01-29 12:31 | disposition home or self-care (01) ==
LOC: RAD 12:31
PROVIDERS: PCP Family Medicine; Visit Provider Nurse Practitioner
DX: I10 Essential (primary) hypertension (principal); N18.31 Chronic kidney disease, stage 3a
CPT/HCPCS: 76770

== ENCOUNTER → 2022-03-24 12:34 | Outpatient (BNVA) | payer OTHER, SELFPAY | PROVIDERS: PCP Family Medicine; Visit Provider Nurse Practitioner Family | DX: I35.0 Nonrheumatic aortic (valve) stenosis (principal); I10 Essential (primary) hypertension; I25.10 Atherosclerotic heart disease of native coronary artery without angina pectoris; F17.220 Nicotine dependence, chewing tobacco, uncomplicated | CPT/HCPCS: 99214 ==

== ENCOUNTER 2022-06-28 12:47 | Outpatient (CLI) | payer OTHER, SELFPAY ==
--- NOTE | 2022-06-28 13:30 | USCV_ITS ---
Dominick Garay Age: 67 Gender: M : 1955 Exam Date: 06/28/2022 13:55 Ordering Phys: Ashley Blum Technologist: TIMOTEO Exam Location: [facility] [place] Indication: AAA Screen HISTORY: Diameter (cm) AP x Transverse x Length Velocity (cm/s) Waveform Prox Aorta: 3.22 x 2.44 x 108.50 Triphasic Mid Aorta: 1.91 x 2.88 x 88.10 Triphasic Distal Aorta: 1.95 x 2.40 x 80.60 Triphasic Right Iliac Prox: 1.34 x 1.15 x 58.00 Triphasic Left Iliac Prox: 1.42 x 1.56 x 62.80 Triphasic Stent Prox Landing x x Aneurysmal Sac Max x x Lt Lat Sac Dim Rt Lat Sac Dim Stent Dist Landing x x Right Iliac Stent x x Left Iliac Stent x x Right Renal Art Left Renal Art FINDINGS: Comparison: none available. A complete assessment of the abdominal aorta was not possible. No evidence of abdominal aortic aneurysm. Ectatic abdominal aorta with evidence of atherosclerotic plaque noted. CONCLUSIONS The abdominal aorta could not be adequately visualized. No large AAA seen. Dr. Christina Carter DO (Electronically Signed) Final Date: 28 June 2022 16:22 S
== END 2022-06-28 12:48 | disposition home or self-care (01) ==
LOC: RAD 12:53
PROVIDERS: PCP Family Medicine; Visit Provider Nurse Practitioner
DX: Z13.6 Encounter for screening for cardiovascular disorders (principal)
CPT/HCPCS: 76706

== ENCOUNTER → 2022-10-05 11:24 | Outpatient (BNVA) | payer OTHER, SELFPAY | PROVIDERS: PCP Family Medicine; Visit Provider Internal Medicine Cardiovascular Disease | DX: R06.09 Other forms of dyspnea (principal); R06.02 Shortness of breath; R07.9 Chest pain, unspecified; Z79.01 Long term (current) use of anticoagulants; R42 Dizziness and giddiness; I35.0 Nonrheumatic aortic (valve) stenosis; E78.00 Pure hypercholesterolemia, unspecified; I25.10 Atherosclerotic heart disease of native coronary artery without angina pectoris; I10 Essential (primary) hypertension; Z72.0 Tobacco use | CPT/HCPCS: 93005; 99214 ==

== ENCOUNTER 2022-11-19 11:09 | Outpatient (CLI) | payer OTHER, SELFPAY ==
--- NOTE | 2022-11-19 12:15 | USCV_ITS ---
Dominick Garay Age: 67 Gender: M : 1955 Exam Date: 11/19/2022 12:03 Ordering Phys: Galdino Ro MD ([email or web address]) Technologist: ANNETTE Exam Location: [facility] [place] Indication: AORTIC STENOSIS BP: 123 / 76 HR: 65 Rhythm: Sinus Technical Quality: Adequate MEASUREMENTS (Male / Female) Normal Values 2D ECHO LVOT Diameter 2.0 cm LV Ejection Fraction MOD 2C 67.9 % LV Ejection Fraction 2C AL 68.3 % LA Diameter 3.9 cm LA Width 3.2 cm LA Height 5.3 cm RA Width 3.1 cm RA Height 4.3 cm Aorta at Sinotubular Diameter 1.9 cm IVC Diameter 1.6 cm M-MODE Aortic Annulus Diameter 2.0 cm LA Ao Ratio MM 2.0 MV E Point Septal Separation 0.6 cm DOPPLER AV Peak Velocity 253.8 cm/s LVOT Peak Velocity 94.0 cm/s AV Area Cont Eq vti 1.3 cm squared AV Area Cont Eq pk 1.2 cm squared MV Peak Velocity 163.0 cm/s MV Area PHT 2.6 cm squared Mitral E to A Ratio 0.8 MV E' Velocity 63.5 cm/s Mitral E to MV E' Ratio 13.9 Mitral E to LV E' Lateral Ratio 10.7 Mitral E to LV E' Septal Ratio 20.3 TR Peak Velocity 251.3 cm/s TR Peak Gradient 25.3 mmHg TR Mean Velocity 208.3 cm/s TR Mean Gradient 17.8 mmHg TR Velocity Time Integral 95.5 cm TV Peak E Velocity 62.0 cm/s Right Atrial Pressure 3.0 mmHg Pulmonary Artery Systolic Pressu 28.3 mmHg PV Peak Velocity 104.0 cm/s RV Acceleration Time 0.1 s RV Ejection Time 0.3 s RV AcT/ET 0.4 FINDINGS Left Ventricle Normal left ventricular size and systolic function, EF 67 %. Moderate left ventricular hypertrophy. Grade I/IV diastolic dysfunction (abnormal relaxation filling pattern), normal to mildly elevated filling pressures. Right Ventricle The right ventricle is normal in size and function. Right Atrium The right atrium is normal in size. Left Atrium Mildly increased left atrial size. Mitral Valve Thickened mitral valve. Trace mitral valve regurgitation. Aortic Valve Moderate aortic valve calcification. Mild to moderate aortic valve stenosis with a peak velocity of 2.65 m/s with a peak gradient of 27 and a mean gradient of 16 mmHg. The aortic valve area is calculated to be 1.22 cm squared Tricuspid Valve Trace tricuspid valve regurgitation. Estimated pulmonary artery peak systolic pressure 25 mmHg Pulmonic Valve No gross abnormalities noted Pericardium Small pericardial effusion. Aorta Normal ascending aorta dimension. IVC The inferior vena cava appears normal. CONCLUSIONS Normal left ventricular size and systolic function, EF 67 %. Moderate left ventricular hypertrophy. Grade I/IV diastolic dysfunction (abnormal relaxation filling pattern), normal to mildly elevated filling pressures. Mild to moderate aortic valve stenosis with a peak velocity of 2.65 m/s with a peak gradient of 27 and a mean gradient of 16 mmHg. The aortic valve area is calculated to be 1.22 cm squared. Moderate aortic valve calcification. Thickened mitral valve. Trace mitral valve regurgitation. Trace tricuspid valve regurgitation. Estimated pulmonary artery peak systolic pressure 25 mmHg Small pericardial effusion. There are no intracardiac masses. Compared to the previous study from 09/28/2021, there may not be a significant change Dr Galdino Ro MD FAC (Electronically Signed) Final Date: 22 November 2022 08:57 S
== END 2022-11-19 11:10 | disposition home or self-care (01) ==
LOC: RAD 11:10
PROVIDERS: PCP Family Medicine; Visit Provider Internal Medicine Cardiovascular Disease
DX: I51.7 Cardiomegaly (principal); I35.0 Nonrheumatic aortic (valve) stenosis; I70.0 Atherosclerosis of aorta; I38 Endocarditis, valve unspecified; I31.39 Other pericardial effusion (noninflammatory)
CPT/HCPCS: 93306

== ENCOUNTER 2023-06-20 12:13 | Outpatient (CLI) | payer OTHER, SELFPAY ==
--- NOTE | 2023-06-20 12:19 | USCV_ITS ---
Dominick Garay Age: 68 Gender: M : 1955 Exam Date: 06/20/2023 12:33 Ordering Phys: Jonna Rao MD Technologist: CT Exam Location: [facility] [place] Indication: cad BP: 115 / 64 HR: 72 Rhythm: Sinus Technical Quality: Adequate MEASUREMENTS (Male / Female) Normal Values 2D ECHO LV Chamber Size 5.0 cm RV Chamber Size 3.2 cm LVOT Diameter 2.1 cm LV Ejection Fraction MOD 2C 56.2 % LV Ejection Fraction 2C AL 56.2 % LA Diameter 5.2 cm LA Width 5.1 cm LA Height 5.3 cm RA Width 3.7 cm RA Height 4.9 cm Aorta at Sinotubular Diameter 2.8 cm IVC Diameter 1.6 cm M-MODE Aortic Annulus Diameter 3.4 cm LA Ao Ratio MM 1.6 MV E Point Septal Separation 1.1 cm DOPPLER AV Peak Velocity 279.0 cm/s LVOT Peak Velocity 94.0 cm/s AV Area Cont Eq vti 1.4 cm squared AV Area Cont Eq pk 1.2 cm squared MV E' Velocity 6.0 cm/s TR Peak Velocity 110.0 cm/s TR Peak Gradient 4.8 mmHg TV Peak E Velocity 69.0 cm/s Right Atrial Pressure 3.0 mmHg Pulmonary Artery Systolic Pressu 7.8 mmHg PV Peak Velocity 125.0 cm/s FINDINGS Left Ventricle Left ventricle is normal in size. LV systolic function is normal with EF 55 to 60%. No regional wall motion abnormalities are seen Right Ventricle Normal in size and function Right Atrium Normal in size Left Atrium Dilated Mitral Valve Structurally normal mitral valve. Trace mitral regurgitation. Aortic Valve Aortic valve is thickened. Mild aortic stenosis with aortic valve area 1.4 cm squared and mean gradient of 17 mmHg. Tricuspid Valve Mild tricuspid regurgitation. Insufficient TR jet to calculate RVSP. Pulmonic Valve Not well-visualized. Pericardium Normal Aorta Normal in size IVC Appears to be normal CONCLUSIONS LV systolic function is normal with EF 55 to 60%. Trace mitral regurgitation Mild aortic stenosis Mild tricuspid regurgitation Compared to prior echocardiogram from 2022, no significant changes are seen. Héctor Guajardo MD (Electronically Signed) Final Date: 26 June 2023 21:28 S
== END 2023-06-20 12:14 | disposition home or self-care (01) ==
LOC: RAD 12:13
PROVIDERS: PCP Family Medicine; Visit Provider Family Medicine
DX: I08.2 Rheumatic disorders of both aortic and tricuspid valves (principal); I25.10 Atherosclerotic heart disease of native coronary artery without angina pectoris
CPT/HCPCS: 93306

== ENCOUNTER → 2023-08-25 15:20 | Outpatient (BNVA) | payer OTHER, SELFPAY | PROVIDERS: PCP Family Medicine; Visit Provider Internal Medicine Cardiovascular Disease | DX: R06.02 Shortness of breath (principal); R07.9 Chest pain, unspecified; Z79.01 Long term (current) use of anticoagulants | CPT/HCPCS: 36415; 80048; 83880; 85025; 93005; 99215 ==

== ENCOUNTER 2023-08-31 09:16 | Outpatient (CLI) | payer OTHER, SELFPAY ==
--- NOTE | 2023-08-31 | ECG_ITS ---
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 Interpretive Statements NAME OF STUDY: LEXISCAN SESTAMIBI STRESS TEST INDICATION: Chest Pain; Shortness of Breath, PROCEDURE: At the baseline, the EKG revealed normal sinus rhythm with features of old septal AL. Nonspecific ST-T changes.. The baseline heart was 67 bpm with a blood pressue of 155/78 mm of Hg Lexiscan was infused over a period of 20 seconds. A total of 0.4 milligrams of Lexiscan was infused. The stress phase was continued for a total of 5 minutes. Heart rate at the end of the stress phase was 74 bpm with a blood pressure 136/67 mm of Hg. The EKG at the peak infusion revealed no significant changes. Sestamibi was injected 20 seconds after the Lexiscan infusion. Heart rate at the end of the recovery phase was 74 bpm with a blood pressure of 139/75 mm of Hg. CONCLUSION: 1. No significant EKG changes with the LexiScan infusion 2. No LexiScan induced chest pain or cardiac arrhythmia 3. Normal blood pressure and heart rate response 4. Sestamibi/sestamibi perfusion scan pending; see separate report. Electronically Signed On 09-12-2023 13:28:15 CDT by Galdino Ro M.D. [id number]
[2023-08-31 09:41] VITALS: BMI 31.5
--- NOTE | 2023-08-31 09:47 | NMCV_ITS ---
NM tereza perf SPECT r/s* [id number] Dominick Garay Age: 68 Gender: M : 1955 Exam Date: 08/31/2023 09:47 Ordering Phys: Galdino Ro MD ([email or web address]) Technologist: CLAUDIA Mcqueen Exam Location: [facility] Indications: CORONARY ANGIOPLASTY STATUS STRESS TEST Please see separate stress test report in [facility] for full findings IMAGE PROTOCOL Rest/Stress 1 Lexiscan Day Radiopharmaceutical Dose (mCi) Administration Site Administered by Rest: Tc-99m 10.5 IV CLAUDIA Mcqueen Sestamibi Stress:Tc-99m 33.0 IV CLAUDIA Sanders Sestamibi Rest: 31-Aug-2023 60 Discovery 630 Stress: 31-Aug-2023 30 Discovery 630 0.4mg Lexiscan. Supine position only as patient was unable to lay prone. SPECT RESULTS Technical Quality: Excellent Raw Data Analysis: Normal Image Corrections: No attenuation or motion correction applied Summed Stress Score: 9 Summed Rest Score: 1 Summed Difference Score: 8 PERFUSION FINDINGS Moderate area of moderately decreased tracer uptake in the basal and mid anterior, mid anterolateral, mid inferolateral and apical lateral regions. Significant reversibility was noted in these regions. FUNCTIONAL RESULTS (calculated via Gated SPECT) Stress Image LV EF (%): 50 Stress EDV (mL):159 TID: 1.13 Stress ESV (mL):80 FUNCTIONAL FINDINGS: Segmental wall motion has revealed mild hypokinesia of the septum and the LV apex. IMPRESSIONS 1. Myocardial perfusion imaging revealing moderate area of reversible defect involving the anterior, anterolateral and inferolateral regions suggesting ischemia in the distribution of the left and descending artery/circumflex artery 2. Normal LV ejection fraction of 50%. 3. LV wall motion analysis revealing mild hypokinesia of the septum and the LV apex 4. Mildly dilated LV cavity with end-systolic volume of 80 mL Compared to the study from 06/18/2019, there is significant increase in the ischemic burden Dr Galdino Ro MD [facility] (Electronically Signed) Final Date: 31 August 2023 13:56 S
[2023-08-31] MEDS: regadenoson 0.4 Mg/5 ml Syringe 0.400000000000000022 MG IVP (11:29)
[2023-08-31 11:41] VITALS: BP 139/75; PULSE 72
== END 2023-08-31 09:17 | disposition home or self-care (01) ==
LOC: CDL 09:17
PROVIDERS: PCP Internal Medicine; Visit Provider Internal Medicine Cardiovascular Disease
DX: R07.9 Chest pain, unspecified (principal); R06.02 Shortness of breath
CPT/HCPCS: 36415; 78452; 93017; 96374; 96375; A9500; J2785

== ENCOUNTER 2023-09-08 11:42 | Outpatient (CLI) | payer OTHER, SELFPAY ==
--- NOTE | 2023-09-08 12:00 | USCV_ITS ---
Dominick Garay Age: 68 Gender: M : 1955 Exam Date: 09/08/2023 12:18 Ordering Phys: Galdino Ro MD ([email or web address] Technologist: Vadim Tan [place] [facility] [place]ication: Bruit Risk Factors: Previous Vascular Surgery: Right Brachial BP: / Left Brachial BP: / Right Left Velocity (cm/s) Spectral Plaque Velocity (cm/s) Spectral Plaque Syst/Diast Broadening Syst/Diast Broadening 72.60/ 10.30 Prox CCA 81.00 / 11.00 72.60/ 16.80 Mid CCA 77.00 / 19.00 66.10/ 12.90 Distal CCA 79.10 / 16.70 77.60/ 0.00 Prox ICA 165.30/ 34.30 65.20/ 16.80 Mid ICA 140.60/ 26.30 74.20/ 20.30 Distal ICA 67.10 / 15.90 112.50 ECA 252.90 1.20 ICA/CCA 2.10 Antegrade Vertebral Antegrade 58.30/ 15.40 cm/s 44.80/ 12.70 cm/s Tri Subclavian Tri 160.7 112.3 0 0 FINDINGS Mild to moderate irregular plaque to the right bifurcation and proximal internal carotid artery Moderate heterogenous plaques at the left bifurcation and proximal ICA. Intimal thickening and minimal plaques in the common carotid arteries bilaterally Antegrade flow in the vertebral arteries bilaterally CONCLUSIONS Mild to moderate irregular plaque at the right bifurcation and proximal internal carotid artery with the Doppler features suggesting less than 50% gnosis Moderate heterogenous plaques at the left bifurcation and proximal internal carotid artery with the Doppler features suggesting 50 to 69% stenosis Elevated velocity in the proximal external carotid artery on the left side with the Doppler features suggesting hemodynamically significant stenosis Compared to the study from 09/28/2021, there seems to be some worsening of the stenosis on the left side Dr Galdino Ro MD [facility] (Electronically Signed) Final Date: 15 Sep 2023 20:26 S
== END 2023-09-08 11:43 | disposition home or self-care (01) ==
LOC: RAD 11:42
PROVIDERS: PCP Internal Medicine; Visit Provider Internal Medicine Cardiovascular Disease
DX: I65.23 Occlusion and stenosis of bilateral carotid arteries (principal)
CPT/HCPCS: 93880

== ENCOUNTER 2023-10-02 08:37 | Inpatient (IN) | payer OTHER, SELFPAY ==
[2023-10-02] VITALS (27 sets, daily range): BP systolic 118–176; BP diastolic 57–85; PULSE 53–83; RESP 11–26; TEMP 36.6–37.1; O2SAT 91–100; BMI 29.8
--- OUTSIDE RECORDS SUMMARY | 2023-10-02 08:41 | XMS_ITS | Patient Health Record ---
Author Name Unknown Organization [facility] Address [address] [place] [address] Care Team Providers Care Fire Patroller Name Role Phone HARRY REYES Unavailable [phone] Allergies Allergen (clinical drug ingredient) Drug/Non Drug Allergy documented on EMR Reaction Allergy Type Onset Date Status Prednisone Unknown Drug Allergy Active Cortisone Unknown Drug Allergy Active Reason For Referral No Information Medications Medication SIG (Take, Route, Frequency, Duration) Notes Start Date End Date Status Acarbose *Pick strength-form from [facility] for eRX* Active Alogliptin Benzoate *Pick strength-form from [facility] for eRX* Active Gemfibrozil *Pick strength-form from [facility] for eRX* Active Insulin Aspart *Pick strength-form from [facility] for eRX* Active Metoprolol Succinate *Reorder fr om [facility] for eRx and Interaction Alerts* Active Brimonidine Tartrate *Pick strength-form from [facility] for eRX* Active Citalopram Hydrobromide *Pick strength-form from [facility] for eRX* Active Potassium Chloride *Pick strength-form from [facility] for eRX* Active Polymyxin B Sulfate *Pick strength-form from [facility] for eRX* Active Tamsulosin HCl 0.4 MG 1 capsule Orally Once a day for 30 days 06/09/2023 10/07/2023 Active hydroCHLOROthiazide *Pick strength-form from [facility] for eRX* Active Montelukast Sodium *Pick strength-form from [facility] for eRX* Active amLODIPine Benzoate *Reorder fro m [facility] for eRx and Interaction Alerts* Active Multivitamin *[facility] Active dexAMETHasone [facility]* Active Tamsulosin HCl 0.4 MG 1 capsule Orally Once a day for 30 days 06/09/2023 10/07/2023 Active Problems Problem Type SNOMED Code ICD Code Onset Dates Problem Status W/U Status Risk Notes Problem 580632439 Encounter for screening for malignant neoplasm of prostate (Z12.5) Active confirmed Problem 262005855826689 Hypertensive chronic kidney disease with stage 1 through stage 4 chronic kidney disease, or unspecified chronic kidney disease (I12.9) Active confirmed Problem [id number] Asymptomatic microscopic hematuria (R31.21) Active confirmed Problem Diabetes mellitus (06928627) Diabetes mellitus (E11.9) Active confirmed Problem Glucosuria (29194854) Glucosuria (R81) Active confirmed Problem 648575734 Chronic kidney disease, unspecified CKD stage (N18.9) Active confirmed Problem 196218160 Elevated PSA (R97.20) Active confirmed Problem Urinary frequency (631420917) Urinary frequency (R35.0) Active confirmed Problem 791459385 BPH loc w urin obs/LUTS (N40.1) Active confirmed Vital Signs Heart Rate 65 /min 06/08/2023 Temperature 98.0 degrees Fahrenheit 06/08/2023 Height-cm 181.61 cm 06/08/2023 Blood pressure diastolic 80 mm Hg 06/08/2023 Weight-kg 95.25 kg 06/08/2023 Height 71.5 in 06/08/2023 Blood pressure systolic 164 mm Hg 06/08/2023 Weight 210 lbs 06/08/2023 BMI 28.88 kg/m2 06/08/2023 Encounters Encounter Location Date Provider Diagnosis [facility] [address] [place] [address] 12/30/2022 HARRY REYES [facility] [address] [place] [address] 06/08/2023 HARRY REYES BPH loc w urin obs/LUTS N40.1 ; Urinary frequency R35.0 ; Incontinence of urine R32 ; Glucosuria R81 and Diabetes mellitus E11.9 [facility] [address] [place] [address] 06/09/2023 HARRY REYES Assessments Encounter Date Diagnosis (ICD Code) Assessment Notes Treat ment Notes Treatment Clinical Notes 06/08/2023 Urinary frequency (ICD-10 - R35.0) 06/08/2023 BPH loc w urin obs/LUTS (ICD-10 - N40.1) Flomax sent to ND in [place] in error. Re-sent to ND in [place] 06/08/2023 Incontinence of urine (ICD-10 - R32) 06/08/2023 Glucosuria (ICD-10 - R81) 06/08/2023 Diabetes mellitus (ICD-10 - E11.9) Plan Of Treatment Pending Test Test Name Order Date Basic Metabolic Panel [id number] 04/01/2022 Basic Metabolic Panel 00180 04/21/2022 Blood Urea Nitrogen (BUN) 34195 09/16/19 23 Creatinine (B) 32525 09/15/2022 PSA Diagnostic--76566 04/01/2022 PSA Diagnostic--71526 04/21/2022 Future Test Test Name Order Date PSA Diagnostic--[id number] 10/20/2022 Next Appt Details Provider Name:HARRY Plascencia, 12/08/2023 11:00:00 AM, [address] [place], [address], Insurance Providers Payer Name Payer Address Payer Phone Subscriber Number Group Number Insured Name Patient Relationship to Insured Coverage Start Date Coverage End Date [employer] [address] [place], [place] [id number] Dominick Jacques Self - patient is the insured Medical (General) History Medical History History ICD Code History of stroke asthma hemorrhoids hypertension back trouble glaucoma diabetes recurrent bladder infections arthritis heart disease microscopic hematuria Surgical History Surgery Date(Month/Year) heart bypass 2018 heart bypass 2021 knee surgery Hospitalization History Reason Date(Month/Year) Heart issues
--- NOTE | 2023-10-02 09:38 | ECG_ITS ---
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 Measurements Intervals [place] Rate: 55 P: 52 MO: 170 QRS: 22 QRSD: 108 T: 29 QT: 459 QTc: 441 Interpretive Statements SINUS BRADYCARDIA NONSPECIFIC T-WAVE ABNORMALITY Compared to ECG 10/05/2022 11:37:03 T-wave abnormality now present Sinus rhythm no longer present Electronically Signed On 10-02-2023 13:09:14 CDT by Sarah Concepcion M.D. [email or web address] for women [email or web address] [id number]
[2023-10-02 10:09] LABS: Basophils # 0.1 10^3/uL (0.0-0.1); Basophils % 0.4 %; Eosinophils # 0.4 10^3/uL (0.0-0.8); Eosinophils % 3.3 %; Hematocrit 41.9 % (37-53); Lymphocytes # 3.2 10^3/uL (0.8-4.8); Mean Corpuscular HGB Conc 33.7 g/dL (30-55); Mean Corpuscular Hemoglobin 31.1 pg (27-33); Mean Corpuscular Volume 92.5 fl (82-101); Mean Platelet Volume 9.1 fL (7.4-10.4); Monocytes % 8.6 %; Neutrophils # 6.68 10^3/uL (1.8-7.7); Nucleated Red Blood Cells % 0 %; Platelet Count 252 10^3/cmm (157-399); Red Blood Count 4.53 10^6/uL (3.85-5.65); Red Cell Distribution Width 13.2 % (12.1-15.1); White Blood Count 11.35 10^3/uL (3.29-11.43)
[2023-10-02] MEDS: sodium chloride 0.9% 1,000 ML 50 ML IV (10:10)
[2023-10-02] MEDS: famotidine 20 mg/2 mL INJ IVP (10:11)
[2023-10-02] MEDS: aspirin 325 mg EC Tablet PO (10:11)
[2023-10-02 10:32] LABS: Troponin(5th) Baseline 67 ng/L (0-15)
[2023-10-02 10:45] LABS: Procalcitonin 0.07 ng/mL (0-0.5); Thyroid Stimulating Hormone 1.12 uIU/mL (0.27-4.20)
[2023-10-02 10:56] LABS: Alanine Aminotransferase 23 U/L (0-41); Albumin Level 3.8 g/dL (3.5-5.2); Alkaline Phosphatase 70 U/L (40-130); Anion Gap 14.4 (5-19); Aspartate Amino Transferase 17 U/L (0-40); Blood Urea Nitrogen 28 mg/dL (8-23); Calcium 9.1 mg/dL (8.5-10.5); Carbon Dioxide 29 mmol/L (22-29); Chloride 104 mmol/L (98-107); Globulin 2.9 g/dL (1.3-4.6); Glomerular Filtration Rate 54.9 mL/min (90-130); Glucose 97 mg/dL (65-115); Osmolality Calculated 303 mOsm/kg (285-295); Potassium 3.4 mmol/L (3.5-5.1); Sodium 144 mmol/L (136-145); Total Bilirubin 0.3 mg/dL (0.15-1.2); Total Protein 6.7 g/dL (6.6-8.7)
[2023-10-02 10:58] LABS: Creatinine Clr Calc Pharmacy 62.7222
[2023-10-02 11:13] LABS: Iron 70 ug/dL (59-158); Total Iron Binding Capacity 259 mcg/dl; Unsaturated Iron Binding 189 ug/dL (112-347)
[2023-10-02 11:29] LABS: Vitamin B12 913 pg/mL (232-1245)
[2023-10-02 11:41] LABS: Estmated Average Glucose 237; Hemoglobin A1C 9.9 % (4.0-6.0)
[2023-10-02] MEDS: pantoprazole 40 mg SDV IVP ×2 (12:01→23:03)
[2023-10-02 12:38] LABS: Add Urine Microscopic? NO; Charge for UA Resulting for Rev
[2023-10-02 13:31] LABS: Bilirubin Urine Neg (Negative); Blood Urine Neg (Negative); Glucose Urine UA 4+ (Normal); Ketones Urine Negative (Negative); Leukocyte Esterase Urine Negative (Negative); Nitrate Urine Negative (Negative); Protein Urine Neg (Negative); Specific Gravity, Urine 1.015 (1.005-1.030); Urine Appearance Clear (CLEAR); Urine Color Yellow (Yellow); Urobilinogen Urine Norm (Negative); pH Urine 5 (5-7)
[2023-10-02 13:52] LABS: Troponin 5 2HR 68.04 ng/L (0-15); Troponin 5 2HR Delta 1.04 ABS# (0-10)
--- NOTE | 2023-10-02 14:01 | PM.HP ---
Providers/Chief Complaint Admitting Physician: Toni Reynolds MD Primary Care Provider: Lorenzo Arias MD Chief Complaint: syncope History of Present Illness Dominick Garay is a 68 year old male with past medical history of hyperlipidemia, bilateral carotid artery stenosis, CAD post PCI to LCx hypertension, loop recorder with recent positive stress test in August 2023 was transferred from the outside hospital today with concerns for syncope and possible non-ST elevation DC. When seen in the ICU with family numbers at bedside they report patient by mistake overnight took all his medications worth 2 days including amlodipine, aspirin, Plavix, alogliptin, metoprolol, ezetimibe, gabapentin, Lasix. After that patient had 1 episode of passing out and still into the ER. He denies any chest pain, nausea vomiting at rest or exertion or currently. Denies any difficulty in breathing. As per family member he does have episode of passing out very frequently within the last few months for which stress test was done and was recently found to be positive. He was supposed to present as an outpatient for cardiac angiogram and PCI on last Tuesday but could not come because of an abdominal bug. He does not have any nausea vomiting or diarrhea right now. As per the family members patient does have frequent episodes of hypoglycemia. On examination right now his heart rate is running in high 50s with blood pressure of 120 over 60 mmHg, on 2 L saturating more than 90%. Review of Systems General: Reports: 10 or more systems reviewed and unremarkable except in HPI and below Const: Denies: fever(s), chills, body aches, change in appetite, change in weight, malaise, night sweats, diaphoresis, change in sleep pattern, daytime sleepiness or snoring Eyes: Denies: change in vision, blurry vision, photophobia, eye discomfort or eye discharge ENMT: Denies: throat pain, enlarged tonsils, hoarseness, mouth pain, oral sores, dry mouth, tinnitus, nasal congestion or post nasal drip Card: Denies: chest pain, palpitations, irregular heart rhythm, edema, swelling of feet/ankles, lightheadedness, syncope, pre-syncope, dyspnea on exertion, orthopnea, leg pain with exertion or acrocyanosis Resp: Denies: dyspnea, productive cough, non-productive cough, wheezing, stridor, pain on inspiration, change in phlegm color, hemoptysis or chest congestion GI: Denies: abdominal pain, nausea, vomiting, hematemesis, coffee ground emesis, dysphagia, heartburn, diarrhea, constipation, bloating, GI cramping, change in bowel habits, pain on defecation, hematochezia or melena : Denies: flank pain, difficulty urinating, dysuria, urinary frequency, urinary urgency, urinary hesitancy, urinary dribbling, difficulty starting urination, change in urine stream, nocturia or hematuria Musc: Denies: neck pain, back pain, extremity pain, joint pain, joint swelling, joint redness, joint stiffness or limited range of motion Neuro: Denies: headache(s), numbness in extremities, weakness in extremities, sensory changes, lack of coordination, difficulty walking, frequent falls, dizziness, vertigo, confusion, Slurred speech present, difficulty communicating thoughts or seizure-like activity Psych: Denies: anxiety, depression, mood swings, panic attacks, hopelessness or irritability Endo: Denies: polyuria, polydipsia, tired all the time, cold intolerance, excessive sweating, flushing or heat intolerance Romain/Lymph: Denies: easy bruising or easy bleeding All/Imm: Denies: tongue swelling, facial swelling or acute wheezing Medications/Allergies Home Medications Medication Instructions Recorded Confirmed Last Taken Type acarbose 100 mg tablet 100 mg PO BID PRN BLOOD SUGAR 06/27/19 09/21/23 02/21/20 History albuterol sulfate 90 mcg/actuation 2 puff inhalation Q6H PRN 06/27/19 09/21/23 02/21/20 History aerosol inhaler (ProAir HFA) Shortness Of Breath amlodipine 5 mg tablet 10 mg PO DAILY 06/27/19 09/21/23 02/22/20 History calcium carbonate (Calcium 600) 600 mg PO BID 06/27/19 09/21/23 1 Day Ago History ~10/01/23 cholecalciferol (vitamin D3) 25 1,000 unit PO DAILY 06/27/19 10/02/23 1 Day Ago History mcg (1,000 unit) capsule ~10/01/23 clopidogrel 75 mg tablet 75 mg PO DAILY 06/27/19 10/02/23 1 Day Ago History ~10/01/23 ferrous gluconate 324 mg (38 mg 324 mg PO QMWF 06/27/19 10/02/23 1 Day Ago History iron) tablet ~10/01/23 gabapentin 600 mg tablet 600 mg PO DAILY 06/27/19 10/02/23 10/01/23 History insulin aspart U-100 100 unit/mL 10 unit SUBCUT TID 06/27/19 09/21/23 1 Day Ago History (3 mL) subcutaneous pen (Novolog ~10/01/23 FlexPen U-100 Insulin aspart) insulin glargine 100 unit/mL 60 unit SUBCUT BID 06/27/19 10/02/23 1 Day Ago History subcutaneous solution (Lantus ~10/01/23 U-100 Insulin) latanoprost 0.005 % eye drops, 1 drop ophthalmic (eye) DAILY 06/27/19 09/21/23 1 Day Ago History emulsion ~10/01/23 lisinopril 40 mg tablet 40 mg PO DAILY 06/27/19 09/21/23 1 Day Ago History ~10/01/23 meloxicam 7.5 mg tablet 7.5 mg PO DAILY 06/27/19 10/02/23 1 Day Ago History ~10/01/23 montelukast 10 mg tablet 10 mg PO DAILY 06/27/19 10/02/23 1 Day Ago History ~10/01/23 nitroglycerin 0.4 mg sublingual 0.4 mg sublingual Q5M PRN Chest 06/27/19 10/02/23 Unknown History tablet (Nitrostat) Pain potassium chloride 20 mEq 10 meq PO DAILY 06/27/19 10/02/23 1 Day Ago History tablet,extended release ~10/01/23 alogliptin 25 mg tablet 25 mg PO DAILY 02/19/20 09/21/23 02/21/20 History pantoprazole 20 mg tablet,delayed 20 mg PO DAILY 02/19/20 10/02/23 1 Day Ago History release ~10/01/23 timolol maleate 0.5 % eye drops 1 drp ophthalmic (eye) BID 02/19/20 09/21/23 1 Day Ago History ~10/01/23 metoprolol tartrate 50 mg tablet 50 mg PO BID #180 tabs 09/29/21 10/02/23 1 Day Ago Rx ~10/01/23 ezetimibe 10 mg tablet 10 mg PO DAILY 08/25/23 10/02/23 1 Day Ago History ~10/01/23 furosemide 40 mg tablet 40 mg PO DAILY #30 tabs 08/26/23 09/21/23 1 Day Ago Rx ~10/01/23 Lactobacillus acidophilus 1 tab PO DAILY 10/02/23 10/02/23 1 Day Ago History ~10/01/23 aspirin 325 mg tablet,delayed 325 mg PO DAILY 10/02/23 10/02/23 1 Day Ago History release ~10/01/23 azelastine 137 mcg (0.1 %) nasal 2 spray intranasal BID 10/02/23 10/02/23 1 Day Ago History spray aerosol ~10/01/23 brimonidine 0.2 % eye drops 1 drp ophthalmic (eye) BID 10/02/23 10/02/23 1 Day Ago History ~10/01/23 citalopram 40 mg tablet 20 mg PO DAILY 10/02/23 10/02/23 1 Day Ago History ~10/01/23 cyanocobalamin (vitamin B-12) 500 500 mcg PO DAILY 10/02/23 10/02/23 1 Day Ago History mcg tablet ~10/01/23 dexamethasone 0.1 % eye 1 drp ophthalmic (eye) TID 10/02/23 10/02/23 1 Day Ago History drops,suspension ~10/01/23 diclofenac sodium 1 % topical gel 4 g topical QID 10/02/23 10/02/23 Unknown History empagliflozin 25 mg tablet 25 mg PO DAILY 10/02/23 10/02/23 1 Day Ago History ~10/01/23 famotidine 20 mg tablet 20 mg PO BID 10/02/23 10/02/23 1 Day Ago History ~10/01/23 loratadine 10 mg tablet 10 mg PO DAILY 10/02/23 10/02/23 1 Day Ago History ~10/01/23 prednisolone acetate 1 % eye 1 drp ophthalmic (eye) QID 10/02/23 10/02/23 1 Day Ago History drops,suspension ~10/01/23 sennosides 8.6 mg tablet (senna) 8.6 mg PO DAILY 10/02/23 10/02/23 Unknown History tamsulosin 0.4 mg capsule 0.4 mg PO DAILY 10/02/23 10/02/23 1 Day Ago History ~10/01/23 Allergies Allergy/AdvReac Type Severity Reaction Status Date / Time cortisone Allergy Severe ALGY-Swell Verified 09/21/23 13:18 Lip/Tongue/Throat Dmckvjo-[id number]-TgK Reductase Allergy Intermediate ADR-Muscle Verified 09/21/23 13:18 Inhibitor Pain [Uzhdvhs-Sts-Bac Reductase Inhibitor] trazodone Allergy Unknown ADR-Itching Verified 09/21/23 13:18 calcitonin Allergy Unknown Verified 09/21/23 13:18 levofloxacin [From Levaquin] Allergy ADR-Nausea Verified 09/21/23 13:18 prednisone Allergy ALGY-Swell Verified 09/21/23 13:18 Lip/Tongue/Throat triamcinolone [From Kenalog] Allergy Unknown Verified 09/21/23 13:18 PFSH Acute PFSH: Medical History (Updated 10/02/23 @ 14:11 by Toni Reynolds MD) Obesity (BMI 30.0-34.9) Hypercholesterolemia Palpitations Acute depression Personality change Bilateral carotid artery stenosis Cerebrovascular disease, acute H/O: CVA (cerebrovascular accident) Diabetic neuropathy Encounter for loop recorder check Chronic lumbosacral pain 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 Osteoporosis, idiopathic GERD without esophagitis Glaucoma Benign essential hypertension Type 2 diabetes mellitus without complications Mixed hyperlipidemia Seizure-like activity Memory loss Claustrophobia Obstructive sleep apnea Cryptogenic stroke Surgical History (Updated 10/02/23 @ 14:07 by Toni Reynolds MD) History of PTCA Hx of eye surgery H/O arthroscopic knee surgery Family History (Updated 10/02/23 @ 08:59 by Leah Cuellar RN) Father CAD (coronary artery disease) Family/Other Cancer Diabetes Grandmother Dementia Mother Diabetes Brother Diabetes CAD (coronary artery disease) Sister Diabetes Lung disease Other Hypertension Myocardial infarction Denies family history of Clotting disorder Chronic kidney disease (CKD) Suicide Anesthesia complication Bleeding disorder Stroke Social History (Updated 10/02/23 @ 09:13 by Leah Cuellar RN) Smoking and tobacco/nicotine status: current every day tobacco/nicotine user (chews tabacco ) smokeless tobacco Smokeless tobacco user: chewing tobacco Alcohol intake: former Former alcohol use details: quit 10 plus years ago Substance/Drug Use: never Lives independently: Yes Household members: spouse and children Housing: House Marital status: Number of children: 3 Number of grandchildren: 4 Highest education level completed: High School Graduate service: Yes branch: [employer] Assignments: Outside [employer] and Deployed Known or Potential Exposure: Other Current occupational status: retired Pets and animals: Yes Pets & animals: dog(s) and bird(s) History of recent travel: No Do you think of yourself as: Straight/Heterosexual Current gender identity: Male Special edvin needs: No Agree to transfusion: Yes Vitals/I&O/Wt Last Vital Signs Temp 98.7 F 10/02/23 09:00 Pulse 57 L 10/02/23 12:30 Resp 16 10/02/23 12:30 BP 127/58 10/02/23 12:00 Pulse Ox 91 10/02/23 12:30 O2 Del Method Nasal Cannula 10/02/23 12:00 O2 Flow Rate 2 10/02/23 12:00 10/01/23 10/02/23 10/02/23 22:59 06:59 14:59 Output Total 150 / 150 Balance -150 / -150 Weight last 48 hrs Weight 94.347 kg Weight 94.347 kg Physical Exam Narrative: General: No acute distress, AO x3, drowsy but wakes up to have complete conversation HEENT: PERRLA, pupils bilaterally equal and reactive Chest: Normal vesicular breath sounds, no added sounds, equal good air entry bilaterally CVS: S1-S2 regular soft ejection systolic murmur at the apex rating to carotids, no tachycardia, no gallops, no rubs Abdomen: Soft, nontender, no organomegaly, bowel sounds present Neuro: No focal deficits, no facial deformity, AO x3, power 5/5 in all limbs Data 10/02/23 10:00 10/02/23 10:00 A&P Assessment and plan (1) Syncope: Most likely in setting of accidental drug overdose including medications of metoprolol, amlodipine, lisinopril, gabapentin, Lasix. Patient took double dose of all his medications overnight. Does have frequent episodes of syncope as an outpatient prior to this as well. Could be in setting of recurrent hypoglycemia. Check CT head, urinalysis, drug screen, troponin cycle, physical therapy. Fall precaution, seizure precaution. Continue to monitor. Mean artery pressure target over 65. Monitor heart rate. Telemonitoring. (2) Accidental drug overdose: As above (3) Positive cardiac stress test: Recent stress test on 08/31/2023 showed moderate area of reversible defect involving anterior, anterior lateral inferior lateral region suggesting ischemia in LAD and circumflex artery. Currently chest pain-free. Check A1c, lipid panel. Continue with home dose of aspirin, Plavix, statin, metoprolol from tomorrow. Can restart metoprolol if heart rate better. Depending on the troponin cycle we will plan to consult cardiology. If troponin cycled negative can plan to consult cardiology next 24 hours for possible cardiac angiogram. Concerns for non-ST elevation DC at outside hospital. Getting troponin cycle as above. For now continue with full dose Lovenox 1 mg/kg body weight every 12 hourly. If troponin cycled negative will change to prophylactic dose Lovenox (4) Type 2 diabetes mellitus without complications: Check A1c. Patient takes Lantus 60 units twice daily along with 10 units of Humalog with each meal. With episodes of hypoglycemia. For now hold off on Lantus. Start on insulin sliding scale low-dose protocol. Will start on Lantus as per insulin requirements next 24 hours. (5) Hypoglycemia: (6) Atherosclerotic heart disease of [place] coronary artery with other forms of angina pectoris: (7) Carotid stenosis: Qualifiers: Laterality: left Qualified Code(s): I65.22 - Occlusion and stenosis of left carotid artery Plan Full code Daughter will be the DPOA. Carb consistent diet Protonix 40 mg IV twice daily as patient took double the dose of full dose aspirin and Plavix today. Full dose Lovenox will be sufficient for DVT prophylaxis Attestations Medical Necessity Statement*: Admission for more than 2 midnights for management of syncope in setting of accidental drug overdose as patient requires further monitoring in a patient with baseline positive stress test recently within the last 1 month, episodes of hypoglycemia at home with baseline type 2 diabetes mellitus Diagnoses Syncope R55 Accidental drug overdose T50.901A Positive cardiac stress test R94.39 Type 2 diabetes mellitus without complications E11.9 Hypoglycemia E16.2 Atherosclerotic heart disease of [place] coronary artery with other forms of angina pectoris I25.118 Stenosis of left carotid artery I65.22 Laterality: left
--- NOTE | 2023-10-02 14:07 | CTR_ITS ---
PROCEDURE INFORMATION: Exam: CT Head Without Contrast Exam date and time: 10/02/2023 3:10 PM Age: 68 years old Clinical indication: Syncope and collapse TECHNIQUE: Imaging protocol: Computed tomography of the head without contrast. Radiation optimization: All CT scans at this facility use at least one of these dose optimization techniques: automated exposure control; mA and/or kV adjustment per patient size (includes targeted exams where dose is matched to clinical indication); or iterative reconstruction. COMPARISON: MR head wo con* [id number] 11/30/2016 12:22 PM RADIATION DOSE METRICS: Total DLP (mGy-cm): 1163.68 FINDINGS: Brain: There is diffuse cerebral atrophy and chronic microvascular white matter disease. There is no significant mass effect or midline shift. There are focal hypodensities in the bilateral basal ganglia consistent with chronic lacunar infarcts. There is no acute intracranial hemorrhage. Cerebral ventricles: There is mild ex vacuo dilation of the lateral ventricles. The basal cisterns are unremarkable. Paranasal sinuses: The paranasal sinuses are clear. Mastoid air cells: The mastoid air cells are clear. Bones: The skull is unremarkable. Soft tissues: The visible extracranial soft tissues are unremarkable. CT/CT head wo con* [id number] IMPRESSION: 1. No acute intracranial abnormality. 2. Chronic lacunar infarcts in the bilateral basal ganglia.
--- NOTE | 2023-10-02 14:07 | USR_ITS ---
PROCEDURE INFORMATION: Exam: US Duplex Bilateral Extracranial Arteries; Complete; Carotid Arteries Exam date and time: 10/02/2023 6:29 PM Age: 68 years old Clinical indication: Syncope and collapse TECHNIQUE: Imaging protocol: Real-time duplex ultrasound scan of the bilateral extracranial arteries combining downey scale, color Doppler and spectral waveform analysis with image documentation. Complete exam. Exam focused on the carotid arteries. COMPARISON: CT head wo con* [id number] 10/02/2023 3:10 PM FINDINGS: Right common carotid artery: No visible luminal narrowing. Normal waveform. Peak velocity 86/14 cm/s. Right internal carotid artery: Less than 50% visible luminal narrowing. Normal waveform. Peak velocity 95/10 cm/s. Mild calcific plaque at the carotid bulb. Right ICA/CCA ratio: 1.5 (normal) Right external carotid artery: Normal waveform. Peak velocity 197 cm/s. Right vertebral artery: Antegrade flow. Normal waveform. Peak velocity 35/10 cm/s. Left common carotid artery: No visible luminal narrowing. Normal waveform. Peak velocity 96/14 cm/s. Left internal carotid artery: Less than 50% visible luminal narrowing. Normal waveform. Peak velocity 99/23 cm/s. Mild calcific plaque at the carotid bulb. Left ICA/CCA ratio: 1.1 (normal) Left external carotid artery: Normal waveform. Peak velocity 156 cm/s. Left vertebral artery: Antegrade flow. Normal waveform. Peak velocity 49/12 cm/s. Other findings: Right subclavian artery: Normal waveform. Peak velocity 103 cm/s. Left subclavian artery: Normal waveform. Peak velocity 111 cm/s. US/CV carotid duplex BI* [id number] IMPRESSION: 1. No sign of hemodynamically significant common carotid, internal carotid, or vertebral arterial stenosis. 2. Elevated velocity in the right external carotid artery origin. Possible hemodynamically significant stenosis. REFERENCES: SRU CRITERIA. The degree of internal carotid artery stenosis is based on criteria defined by the Society of Radiologists in Ultrasound (SRU). Normal is no stenosis. Mild is less than 50% stenosis. Moderate is 50-69% stenosis. Severe is greater than 69% stenosis to near occlusion. Near occlusion is a markedly narrowed lumen. Total occlusion is no detectable patent lumen.
[2023-10-02 14:25] LABS: Amphetamines Screen Urine Negative (Negative); Barbiturates Screen Urine Negative (Negative); Benzodiazepines Screen Urine Negative (Negative); Cocaine Screen Urine Negative (Negative); Opiate Screen Urine Negative (Negative); PCP Screen Urine Negative (Negative); THC Screen Urine Negative (Negative)
--- NOTE | 2023-10-02 14:29 | ECG_ITS ---
[facility] Test Date: 2023-10-02 Pat Name: Dominick Garay Department: Room: [facility] Gender: Male Top Executive: : 1955 Requested By: Toni Reynolds Order Number: [id number] Reading MD: Héctor Guajardo M.D. Measurements Intervals [place] Rate: 60 P: 57 IL: 172 QRS: 34 QRSD: 105 T: 24 QT: 452 QTc: 454 Interpretive Statements SINUS RHYTHM NONSPECIFIC T-WAVE ABNORMALITY Compared to ECG 10/02/2023 10:59:58 Sinus bradycardia no longer present T-wave abnormality still present Electronically Signed On 10-03-2023 12:56:08 CDT by Héctor Guajardo M.D. [email or web address] memorial [email or web address] hospital [email or web address].[email or web address]/[id number]
--- NOTE | 2023-10-02 15:27 | PC.NURSE ---
Dr. Concepcion Spoke with Dr. Concepcion regarding plavix dose for today, with concerns that the patient took 2 75 mg plavix tablets last night. Orders given to hold plavix dose for today and start tomorrow.
--- NOTE | 2023-10-02 15:45 | P.CONIM_ITS ---
Providers/Reason For Consult 2 Consulting Physician/Specialty*: Cardiology Reason for Consult*: Syncope and NSTEMI Requesting Physician: Dr. Lucas Attending Physician: Toni Reynolds MD Primary Care Provider: Lorenzo Arias MD History of Present Illness History of Present Illness Dominick Garay is a 68 year old male with a previous history of coronary disease, previous angioplasty and a recent abnormal stress test, presented with an episode of syncope at home in the bathroom. Currently patient is well oriented in time and space. He thinks he likely took double dose of his all of his medication including medicine for blood pressure and cardiac meds. He denies any chest pain or shortness of air. The EKG showed a sinus bradycardia with nonspecific ST changes. However his cardiac troponin enzyme is elevated, NSTEMI. Currently patient is completely asymptomatic and resting comfortably. Review of Systems 2 Narrative: Detailed 10 point systemic review unremarkable except for as mentioned above in the history of present illness. Medications/Allergies Home Medications Medication Instructions Recorded Confirmed Last Taken Type acarbose 100 mg tablet 100 mg PO BID PRN BLOOD SUGAR 06/27/19 09/21/23 02/21/20 History albuterol sulfate 90 mcg/actuation 2 puff inhalation Q6H PRN 06/27/19 09/21/23 02/21/20 History aerosol inhaler (ProAir HFA) Shortness Of Breath amlodipine 5 mg tablet 10 mg PO DAILY 06/27/19 09/21/23 02/22/20 History calcium carbonate (Calcium 600) 600 mg PO BID 06/27/19 09/21/23 1 Day Ago History ~10/01/23 cholecalciferol (vitamin D3) 25 1,000 unit PO DAILY 06/27/19 10/02/23 1 Day Ago History mcg (1,000 unit) capsule ~10/01/23 clopidogrel 75 mg tablet 75 mg PO DAILY 06/27/19 10/02/23 1 Day Ago History ~10/01/23 ferrous gluconate 324 mg (38 mg 324 mg PO QMWF 06/27/19 10/02/23 1 Day Ago History iron) tablet ~10/01/23 gabapentin 600 mg tablet 600 mg PO DAILY 06/27/19 10/02/23 10/01/23 History insulin aspart U-100 100 unit/mL 10 unit SUBCUT TID 06/27/19 09/21/23 1 Day Ago History (3 mL) subcutaneous pen (Novolog ~10/01/23 FlexPen U-100 Insulin aspart) insulin glargine 100 unit/mL 60 unit SUBCUT BID 06/27/19 10/02/23 1 Day Ago History subcutaneous solution (Lantus ~10/01/23 U-100 Insulin) latanoprost 0.005 % eye drops, 1 drop ophthalmic (eye) DAILY 06/27/19 09/21/23 1 Day Ago History emulsion ~10/01/23 lisinopril 40 mg tablet 40 mg PO DAILY 06/27/19 09/21/23 1 Day Ago History ~10/01/23 meloxicam 7.5 mg tablet 7.5 mg PO DAILY 06/27/19 10/02/23 1 Day Ago History ~10/01/23 montelukast 10 mg tablet 10 mg PO DAILY 06/27/19 10/02/23 1 Day Ago History ~10/01/23 nitroglycerin 0.4 mg sublingual 0.4 mg sublingual Q5M PRN Chest 06/27/19 10/02/23 Unknown History tablet (Nitrostat) Pain potassium chloride 20 mEq 10 meq PO DAILY 06/27/19 10/02/23 1 Day Ago History tablet,extended release ~10/01/23 alogliptin 25 mg tablet 25 mg PO DAILY 02/19/20 09/21/23 02/21/20 History pantoprazole 20 mg tablet,delayed 20 mg PO DAILY 02/19/20 10/02/23 1 Day Ago History release ~10/01/23 timolol maleate 0.5 % eye drops 1 drp ophthalmic (eye) BID 02/19/20 09/21/23 1 Day Ago History ~10/01/23 metoprolol tartrate 50 mg tablet 50 mg PO BID #180 tabs 09/29/21 10/02/23 1 Day Ago Rx ~10/01/23 ezetimibe 10 mg tablet 10 mg PO DAILY 08/25/23 10/02/23 1 Day Ago History ~10/01/23 furosemide 40 mg tablet 40 mg PO DAILY #30 tabs 08/26/23 09/21/23 1 Day Ago Rx ~10/01/23 Lactobacillus acidophilus 1 tab PO DAILY 10/02/23 10/02/23 1 Day Ago History ~10/01/23 aspirin 325 mg tablet,delayed 325 mg PO DAILY 10/02/23 10/02/23 1 Day Ago History release ~10/01/23 azelastine 137 mcg (0.1 %) nasal 2 spray intranasal BID 10/02/23 10/02/23 1 Day Ago History spray aerosol ~10/01/23 brimonidine 0.2 % eye drops 1 drp ophthalmic (eye) BID 10/02/23 10/02/23 1 Day Ago History ~10/01/23 citalopram 40 mg tablet 20 mg PO DAILY 10/02/23 10/02/23 1 Day Ago History ~10/01/23 cyanocobalamin (vitamin B-12) 500 500 mcg PO DAILY 10/02/23 10/02/23 1 Day Ago History mcg tablet ~10/01/23 dexamethasone 0.1 % eye 1 drp ophthalmic (eye) TID 10/02/23 10/02/23 1 Day Ago History drops,suspension ~10/01/23 diclofenac sodium 1 % topical gel 4 g topical QID 10/02/23 10/02/23 Unknown History empagliflozin 25 mg tablet 25 mg PO DAILY 10/02/23 10/02/23 1 Day Ago History ~10/01/23 famotidine 20 mg tablet 20 mg PO BID 10/02/23 10/02/23 1 Day Ago History ~10/01/23 loratadine 10 mg tablet 10 mg PO DAILY 10/02/23 10/02/23 1 Day Ago History ~10/01/23 prednisolone acetate 1 % eye 1 drp ophthalmic (eye) QID 10/02/23 10/02/23 1 Day Ago History drops,suspension ~10/01/23 sennosides 8.6 mg tablet (senna) 8.6 mg PO DAILY 10/02/23 10/02/23 Unknown History tamsulosin 0.4 mg capsule 0.4 mg PO DAILY 10/02/23 10/02/23 1 Day Ago History ~10/01/23 Allergies Allergy/AdvReac Type Severity Reaction Status Date / Time cortisone Allergy Severe ALGY-Swell Verified 09/21/23 13:18 Lip/Tongue/Throat Oonatwd-DXX-[id number] Reductase Allergy Intermediate ADR-Muscle Verified 09/21/23 13:18 Inhibitor Pain [Axoxfss-Zav-Krt Reductase Inhibitor] trazodone Allergy Unknown ADR-Itching Verified 09/21/23 13:18 calcitonin Allergy Unknown Verified 09/21/23 13:18 levofloxacin [From Levaquin] Allergy ADR-Nausea Verified 09/21/23 13:18 prednisone Allergy ALGY-Swell Verified 09/21/23 13:18 Lip/Tongue/Throat triamcinolone [From Kenalog] Allergy Unknown Verified 09/21/23 13:18 Current Medications Generic Name Dose Route Start Last Admin Trade Name Isha PRN Reason Stop Dose Admin Clopidogrel Bisulfate 75 mg 10/02/23 13:40 10/02/23 15:27 Clopidogrel 75 Mg Tablet PO Not Given DAILY YASEMIN Sodium Chloride 1,000 mls @ 75 mls/hr 10/02/23 09:45 10/02/23 10:10 Sodium Chloride 0.9% IV 50 mls/hr .[id number] YASEMIN Administration Insulin Human Lispro 0 unit 10/02/23 12:00 10/02/23 11:39 Insulin Lispro 100 Unit/1 Ml SUBCUT Not Given WM&BEDTIME YASEMIN Protocol Pantoprazole Sodium 40 mg 10/02/23 10:45 10/02/23 12:01 Pantoprazole 40 Mg Sdv IVP 40 mg Q12H YASEMIN Administration Additional Medication Information Home and current medications reviewed PFSH Acute 2 PFSH: Medical History Obesity (BMI 30.0-34.9) Hypercholesterolemia Palpitations Acute depression Personality change Bilateral carotid artery stenosis Cerebrovascular disease, acute H/O: CVA (cerebrovascular accident) Diabetic neuropathy Encounter for loop recorder check Chronic lumbosacral pain 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 Osteoporosis, idiopathic GERD without esophagitis Glaucoma Benign essential hypertension Type 2 diabetes mellitus without complications Mixed hyperlipidemia Seizure-like activity Memory loss Claustrophobia Obstructive sleep apnea Cryptogenic stroke Surgical History History of PTCA Hx of eye surgery H/O arthroscopic knee surgery Family History Father CAD (coronary artery disease) Family/Other Cancer Diabetes Grandmother Dementia Mother Diabetes Brother Diabetes CAD (coronary artery disease) Sister Diabetes Lung disease Other Hypertension Myocardial infarction Denies family history of Clotting disorder Chronic kidney disease (CKD) Suicide Anesthesia complication Bleeding disorder Stroke Social History Smoking and tobacco/nicotine status: current every day tobacco/nicotine user (chews tabacco ) smokeless tobacco Smokeless tobacco user: chewing tobacco Alcohol intake: former Former alcohol use details: quit 10 plus years ago Substance/Drug Use: never Lives independently: Yes Household members: spouse and children Housing: House Marital status: Number of children: 3 Number of grandchildren: 4 Highest education level completed: High School Graduate service: Yes branch: [employer] Assignments: Outside [employer] ([employer]) and Deployed Known or Potential Exposure: Other Current occupational status: retired Pets and animals: Yes Pets & animals: dog(s) and bird(s) History of recent travel: No Do you think of yourself as: Straight/Heterosexual Current gender identity: Male Special edvin needs: No Agree to transfusion: Yes Vitals/I&O/Wt Last Vital Signs Temp 98.7 F 10/02/23 09:00 Pulse 72 10/02/23 14:00 Resp 16 10/02/23 12:30 BP 127/58 10/02/23 12:00 Pulse Ox 91 10/02/23 12:30 O2 Del Method Nasal Cannula 10/02/23 12:00 O2 Flow Rate 2 10/02/23 12:00 10/02/23 10/02/23 10/02/23 06:59 14:59 22:59 Output Total 150 / 150 Balance -150 / -150 Weight last 48 hrs Weight 208 lb Weight 208 lb Physical Exam 2 Narrative: Patient sitting comfortably on his bed. He is not in any respiratory distress. Vitals revealed heart rate 62 bpm. Blood pressure 118/79. O2 saturation 95% on room air. HEENT examination unremarkable. Neck veins not distended. Lung auscultation reveals good air entry bilaterally. No added sounds. Examination: Normal first and second heart sounds. No added sound Extremities. No lower extremity edema. Distal pulses palpable. Skin warm and dry. Abdomen soft nontender. Bowel sounds audible. Neuro exam. Grossly intact. Data 10/02/23 10:00 10/02/23 10:00 A&P Assessment and plan (1) Syncope: (2) NSTEMI (non-ST elevated myocardial infarction): Plan 68-year-old male patient with a significant previous cardiac history and risk factors now presented with an episode of syncope likely this episode has happened as result of mistakenly double the doses of his all of medication including diabetic and cardiac meds. However the cardiac enzymes are elevated with the recent abnormal positive nuclear stress test. Currently clinically asymptomatic and resting comfortably. No active angina or heart failure. Plan: To manage actively NSTEMI Adjust his home medications accordingly Cardiac cath during this admission considering recent abnormal stress test and now elevated cardiac enzymes in the setting of syncope, likely ACS. Coding Level of Care Code Acute Code for [facility] Diagnoses Syncope R55 NSTEMI (non-ST elevated myocardial infarction) I21.4 Time Spent (min) 30
[2023-10-02 17:27] LABS: Glucose Point of Care 211 mg/dL (70-110)
--- NOTE | 2023-10-02 18:08 | ECG_ITS ---
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 Measurements Intervals Chambers Rate: 67 P: 53 IN: 172 QRS: 21 QRSD: 101 T: 31 QT: 340 QTc: 361 Interpretive Statements SINUS RHYTHM NONSPECIFIC T-WAVE ABNORMALITY Compared to ECG 10/02/2023 14:29:23 No significant changes Electronically Signed On 10-03-2023 12:55:44 CDT by Héctor Guajardo M.D. [id number]
[2023-10-02] MEDS: insulin lispro 100 unit/1 mL SUBCUT ×2 (18:10→20:09)
[2023-10-02] MEDS: enoxaparin 100 mg/mL Syringe 90 MG SUBCUT (18:10)
[2023-10-02 19:08] LABS: Troponin 5 6HR 58.84 ng/L (0-15); Troponin 5 6HR Delta -8.16 ng/L (0-12)
[2023-10-02 19:52] LABS: Glucose Point of Care 256 mg/dL (70-110)
--- NOTE | 2023-10-02 19:52 | PC.NURSE ---
Output: Patient missed urinal; unable to measure full void
[2023-10-02] MEDS: sodium chloride 0.9% 1,000 ML 75 ML IV (23:03)
[2023-10-03] VITALS (45 sets, daily range): BP systolic 112–175; BP diastolic 53–99; PULSE 61–82; RESP 0–25; TEMP 36.1–37.1; O2SAT 90–99
[2023-10-03] MEDS: ondansetron 2 mg/ML SDV 2 mL 4 MG IVP ×2 (04:03→12:57)
[2023-10-03] MEDS: enoxaparin 100 mg/mL Syringe 90 MG SUBCUT (04:04)
[2023-10-03] MEDS: lanolin oint 7 gm 1 APPLIC TOPICAL (04:22)
--- NOTE | 2023-10-03 04:48 | PC.NURSE ---
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 Right wrist and bilateral groin shaved, patient cleansed with chg wipes, placed in new gown, pedal pulses marked and patient has a patent 20g iv in the left forearm. Patient has remained npo since midnight.
--- NOTE | 2023-10-03 05:05 | PC.NURSE ---
Output: Patient missed the bsc; unable to measure full void.
[2023-10-03 06:07] LABS: Basophils % 0.3 %; Eosinophils # 0.4 10^3/uL (0.0-0.8); Eosinophils % 3.7 %; Hematocrit 41.6 % (37-53); Lymphocytes # 2.5 10^3/uL (0.8-4.8); Lymphocytes % 22.2 %; Mean Corpuscular HGB Conc 33.7 g/dL (30-55); Mean Corpuscular Hemoglobin 31.1 pg (27-33); Mean Corpuscular Volume 92.4 fl (82-101); Mean Platelet Volume 9.2 fL (7.4-10.4); Monocytes # 0.8 10^3/uL (0.2-0.9); Monocytes % 7.2 %; Neutrophils # 7.36 10^3/uL (1.8-7.7); Neutrophils % 66.2 %; Nucleated Red Blood Cells % 0 %; Platelet Count 215 10^3/cmm (157-399); Red Cell Distribution Width 13.2 % (12.1-15.1); White Blood Count 11.12 10^3/uL (3.29-11.43)
[2023-10-03 06:31] LABS: Alanine Aminotransferase 21 U/L (0-41); Albumin Level 3.6 g/dL (3.5-5.2); Alkaline Phosphatase 68 U/L (40-130); Anion Gap 12.5 (5-19); Aspartate Amino Transferase 19 U/L (0-40); Blood Urea Nitrogen 20 mg/dL (8-23); Calcium 8.2 mg/dL (8.5-10.5); Carbon Dioxide 27 mmol/L (22-29); Chloride 105 mmol/L (98-107); Creatinine Clr Calc Pharmacy 81.5388; Globulin 2.9 g/dL (1.3-4.6); Glomerular Filtration Rate 74.3 mL/min (90-130); Glucose 210 mg/dL (65-115); Magnesium 2.2 mg/dL (1.7-2.3); Osmolality Calculated 301 mOsm/kg (285-295); Phosphorus 2.6 mg/dL (2.5-4.5); Potassium 3.5 mmol/L (3.5-5.1); Sodium 141 mmol/L (136-145); Total Bilirubin 0.3 mg/dL (0.15-1.2); Total Protein 6.5 g/dL (6.6-8.7)
[2023-10-03 06:32] LABS: Chol HDL Ratio 4.47 mg/dL (1.0-5.00); Cholesterol 143 mg/dL (0-200); HDL Cholesterol 32 mg/dL (60-100); Triglycerides 490 mg/dL (0-150)
[2023-10-03 06:44] LABS: Folate Level 10.8 ng/mL (4.5-32.2)
[2023-10-03 07:00] LABS: LDL Cholesterol Direct 41 mg/dL (0-100)
[2023-10-03 07:46] LABS: Glucose Point of Care 234 mg/dL (70-110)
--- NOTE | 2023-10-03 08:06 | PM.PN ---
Subjective Subjective: This patient is admitted to hospital with recurrent episodes of syncope. Yesterday he was seen in an outside facility with syncope. He was found to have low blood pressure. Apparently he accidentally overdosed himself with the blood pressure medication. He also was having chest pain prior to the syncopal episode. According the patient's family, he has been having episodes of chest pain/tightness before and after these events. However the patient does not recall having chest pains prior to these episodes. He seems to be forgetful. He had an abnormal Myocardial perfusion imaging recently. He was scheduled for an outpatient cardiac catheterization. But because of the flu, the test had to be postponed. Medications: Medication Review Details: Current Medications Acetaminophen (Acetaminophen 325 Mg Tablet) 650 mg PO Q6H PRN PRN Reason: Mild/Mod Pain Or Temp >/= 101 Albuterol Sulfate (Albuterol 2.5 Mg/3 Ml Neb) 2.5 mg INHALATION Q4H.RESPIRATORY PRN PRN Reason: SHORTNESS OF BREATH Aspirin (Aspirin 81 Mg Ec Tablet) 81 mg PO DAILY [facility] Bisacodyl (Bisacodyl 5 Mg Tablet) 10 mg PO DAILY PRN; Protocol PRN Reason: Constipation (see protocol) Citalopram Hydrobromide (Citalopram 20 Mg Tablet) 20 mg PO DAILY [facility] Clopidogrel Bisulfate (Clopidogrel 75 Mg Tablet) 75 mg PO DAILY [facility] Last Admin: 10/02/23 15:27 Dose: Not Given Ezetimibe (Ezetimibe 10 Mg Tablet) 10 mg PO DAILY [facility] Enoxaparin Sodium (Enoxaparin 100 Mg/Ml Syringe) 90 mg 1 mg/kg (90 mg) SUBCUT Q12H [facility] Last Admin: 10/03/23 04:04 Dose: 90 mg Sodium Chloride (Sodium Chloride 0.9%) 1,000 mls @ 75 mls/hr IV .[id number] [facility] Last Admin: 10/02/23 23:03 Dose: 75 mls/hr Dextrose (D5w) 500 mls @ 0 mls/hr IV ONCE PRN; Protocol PRN Reason: Adult Acute Hypoglycemia Prot Dextrose (D10w) 125 mls @ 750 mls/hr IV PRN PRN; Protocol PRN Reason: Adult Acute Hypoglycemia Nursing Protocol Dextrose (D10w) 250 mls @ 1,000 mls/hr IV PRN PRN; Protocol PRN Reason: Adult Acute Hypoglycemia Nursing Protocol Insulin Human Lispro (Insulin Lispro 100 Unit/1 Ml) 0 unit SUBCUT WM&BEDTIME YASEMIN; Protocol Last Admin: 10/02/23 20:09 Dose: 6 unit Lactulose (Lactulose Oral Liq 20 Gm/30 Ml Udc) 10 gm PO DAILY PRN; Protocol PRN Reason: Constipation (see protocol) Lanolin (Lanolin Oint 7 Gm) 1 applic TOPICAL PRN PRN PRN Reason: DRYNESS Last Admin: 10/03/23 04:22 Dose: 1 applic Magnesium Hydroxide (Magnesium Hydroxide 30 Ml Udc) 30 ml PO DAILY PRN; Protocol PRN Reason: Constipation (see protocol) Morphine Sulfate (Morphine 4 Mg/Ml Sdv 1 Ml) 2 mg IVP Q4H PRN PRN Reason: SEVERE PAIN Ondansetron HCl (Ondansetron 2 Mg/Ml Sdv 2 Ml) 4 mg IVP Q8H PRN PRN Reason: vomiting, or N/V if npo Last Admin: 10/03/23 04:03 Dose: 4 mg Pantoprazole Sodium (Pantoprazole 40 Mg Sdv) 40 mg IVP Q12H YASEMIN Last Admin: 10/02/23 23:03 Dose: 40 mg Tamsulosin HCl (Tamsulosin 0.4 Mg Capsule) 0.4 mg PO DAILY [facility] Vitals/I&O/Wt Last Vital Signs Temp 98.0 F 10/03/23 05:11 Pulse 82 10/03/23 05:52 Resp 13 10/03/23 04:00 BP 131/70 10/03/23 04:00 Pulse Ox 93 10/03/23 04:00 O2 Del Method Room Air 10/03/23 04:00 O2 Flow Rate 2 10/02/23 12:00 10/02/23 10/03/23 10/03/23 22:59 06:59 14:59 Intake Total 1161.667 / 1161.667 303.75 / 1465.417 Output Total 700 / 850 650 / 1500 Balance 461.667 / 311.667 -346.25 / -34.583 Weight last 48 hrs Weight 216 lb 0.64 oz Weight 208 lb Weight 208 lb Physical Exam Narrative: GENERAL: The patient is alert and oriented times three. Not in any acute distress. HEENT: No significant pallor, icterus or lymphadenopathy.Oral cavity: There are no mucous membrane lesions. NECK: Trachea appears to be central. No masses noted. No JVD or thyromegaly appreciated. RESPIRATORY: Chest is symmetrical. No intercostals muscle retraction or any accessory muscle activation. There is no chest wall tenderness. Breath sounds are heard bilaterally. No rales or rhonchi heard. No evidence of any consolidation. BREASTS: Deferred. HEART: The heart sounds are normal. No S3 or S4. No significant murmurs. No pericardial rub ABDOMEN: No vessel pulsations or distention. No tenderness. No organomegaly appreciated. Bowel sounds are normally heard. : Deferred. RECTAL: Deferred. LYMPHATIC: No lymphadenopathy noted in the neck. EXTREMITIES: No edema or cyanosis. No clubbing. MUSCULOSKELETAL: No acute joint deformities or swelling SKIN: There are no significant rashes or ecchymosis NEUROPSYCHIATRIC: The patient is alert and oriented x3. Appears to be in a good mood. No tremors or rigidity noted. Data 10/03/23 05:36 10/03/23 05:36 Other Labs: Laboratory Last Values WBC 11.12 10^3/uL (3.29-11.43) 10/03/23 05:36 RBC 4.50 10^6/uL (3.85-5.65) 10/03/23 05:36 Hgb 14.00 g/dL (11.27-16.99) 10/03/23 05:36 Hct 41.6 % (37-53) 10/03/23 05:36 MCV 92.4 fl (82-101) 10/03/23 05:36 MCH 31.1 pg (27-33) 10/03/23 05:36 MCHC 33.7 g/dL (30-55) 10/03/23 05:36 RDW 13.2 % (12.1-15.1) 10/03/23 05:36 Plt Count 215 10^3/cmm (157-399) 10/03/23 05:36 MPV 9.2 fL (7.4-10.4) 10/03/23 05:36 Neut % (Auto) 66.2 % 10/03/23 05:36 Lymph % (Auto) 22.2 % 10/03/23 05:36 [place] % (Auto) 7.2 % 10/03/23 05:36 Eos % (Auto) 3.7 % 10/03/23 05:36 Baso % (Auto) 0.3 % 10/03/23 05:36 Neut # (Auto) 7.36 10^3/uL (1.8-7.7) 10/03/23 05:36 Lymph # (Auto) 2.5 10^3/uL (0.8-4.8) 10/03/23 05:36 [place] # (Auto) 0.8 10^3/uL (0.2-0.9) 10/03/23 05:36 Eos # (Auto) 0.4 10^3/uL (0.0-0.8) 10/03/23 05:36 Baso # (Auto) 0.0 10^3/uL (0.0-0.1) 10/03/23 05:36 Nucleated RBC % (auto) 0 % 10/03/23 05:36 Nucleated RBCs # 0.0 /100WBC 10/03/23 05:36 Sodium 141 mmol/L (136-145) 10/03/23 05:36 Potassium 3.5 mmol/L (3.5-5.1) 10/03/23 05:36 Chloride 105 mmol/L (98-107) 10/03/23 05:36 Carbon Dioxide 27 mmol/L (22-29) 10/03/23 05:36 Anion Gap 12.5 (5-19) 10/03/23 05:36 BUN 20 mg/dL (8-23) 10/03/23 05:36 Creatinine 1.0 mg/dL (0.7-1.2) 10/03/23 05:36 GFR Calculation 74.3 mL/min (90-130) L 10/03/23 05:36 Glucose 210 mg/dL (65-115) H 10/03/23 05:36 POC Glucose 234 mg/dL (70-110) H 10/03/23 07:37 Estimat Average Glucose 237 10/02/23 10:00 Hemoglobin A1c 9.9 % (4.0-6.0) H 10/02/23 10:00 Calculated Osmolality 301 mOsm/kg (285-295) H 10/03/23 05:36 Calcium 8.2 mg/dL (8.5-10.5) L 10/03/23 05:36 Phosphorus 2.6 mg/dL (2.5-4.5) 10/03/23 05:36 Magnesium 2.2 mg/dL (1.7-2.3) 10/03/23 05:36 Iron 70 ug/dL (59-158) 10/02/23 10:00 TIBC 259 mcg/dl 10/02/23 10:00 % Saturation 27.0 % (20-50) 10/02/23 10:00 Unsat Iron Binding 189 ug/dL (112-347) 10/02/23 10:00 Total Bilirubin 0.3 mg/dL (0.15-1.2) 10/03/23 05:36 AST 19 U/L (0-40) 10/03/23 05:36 ALT 21 U/L (0-41) 10/03/23 05:36 Alkaline Phosphatase 68 U/L (40-130) 10/03/23 05:36 Troponin T Baseline 67 ng/L (0-15) H 10/02/23 10:00 Troponin T 120 Minute 68.04 ng/L (0-15) H 10/02/23 13:16 Delta Troponin T 1.04 ABS# (0-10) 10/02/23 13:16 Troponin T Hi Sens 6Hr 58.84 ng/L (0-15) H 10/02/23 18:38 Troponin T Hi Sens 6Hr Delta -8.16 ng/L (0-12) L 10/02/23 18:38 Total Protein 6.5 g/dL (6.6-8.7) L 10/03/23 05:36 Albumin 3.6 g/dL (3.5-5.2) 10/03/23 05:36 Globulin 2.9 g/dL (1.3-4.6) 10/03/23 05:36 Triglycerides 490 mg/dL (0-150) H 10/03/23 05:36 Cholesterol 143 mg/dL (0-200) 10/03/23 05:36 LDL Cholesterol Direct 41 mg/dL (0-100) 10/03/23 05:36 LDL Cholesterol, Calc Not Reportable 10/03/23 05:36 HDL Cholesterol 32 mg/dL (60-100) L 10/03/23 05:36 LDL/HDL Ratio Not Reportable 10/03/23 05:36 Cholesterol/HDL Ratio 4.47 mg/dL (1.0-5.00) 10/03/23 05:36 Vitamin B12 913 pg/mL (232-1245) 10/02/23 10:00 Folate 10.8 ng/mL (4.5-32.2) 10/03/23 05:36 Procalcitonin 0.07 ng/mL (0-0.5) 10/02/23 10:00 TSH 1.12 uIU/mL (0.27-4.20) 10/02/23 10:00 Urine Color Yellow (Yellow) 10/02/23 11:57 Urine Appearance Clear (CLEAR) 10/02/23 11:57 Urine pH 5 (5-7) 10/02/23 11:57 Ur Specific [place] 1.015 (1.005-1.030) 10/02/23 11:57 Urine Protein Neg (Negative) 10/02/23 11:57 Urine Glucose (UA) 4+ (Normal) H 10/02/23 11:57 Urine Ketones Negative (Negative) 10/02/23 11:57 Urine Blood Neg (Negative) 10/02/23 11:57 Urine Nitrate Negative (Negative) 10/02/23 11:57 Urine Bilirubin Neg (Negative) 10/02/23 11:57 Urine Urobilinogen Norm mg/dL (Negative) 10/02/23 11:57 Ur Leukocyte Esterase Negative (Negative) 10/02/23 11:57 Urine Opiates Screen Negative ng/mL (Negative) 10/02/23 11:57 Ur Barbiturates Screen Negative ng/mL (Negative) 10/02/23 11:57 Ur Phencyclidine Scrn Negative ng/mL (Negative) 10/02/23 11:57 Ur Amphetamines Screen Negative ng/mL (Negative) 10/02/23 11:57 U Benzodiazepines Scrn Negative ng/mL (Negative) 10/02/23 11:57 Urine Cocaine Screen Negative ng/mL (Negative) 10/02/23 11:57 U Marijuana (THC) Screen Negative ng/mL (Negative) 10/02/23 11:57 Other data: Echocardiogram done on 06/20/2023 LV systolic function is normal with EF 55 to 60%. Trace mitral regurgitation Mild aortic stenosis Mild tricuspid regurgitation Compared to prior echocardiogram from 2022, no significant changes are seen. Myocardial perfusion imaging on 08/31/2023 1. Myocardial perfusion imaging revealing moderate area of reversible defect involving the anterior, anterolateral and inferolateral regions suggesting ischemia in the distribution of the left and descending artery/circumflex artery 2. Normal LV ejection fraction of 50%. 3. LV wall motion analysis revealing mild hypokinesia of the septum and the LV apex 4. Mildly dilated LV cavity with end-systolic volume of 80 mL Compared to the study from 06/18/2019, there is significant increase in the ischemic burden A&P Assessment and plan (1) Abnormal nuclear stress test: I discussed with the patient and his family in detail implications of the Myocardial perfusion imaging findings. In order to further evaluate his coronary status, he requires a cardiac catheterization. Because of his recurrent episodes of syncope associated chest pain, coronary ischemia could be a factor for the syncopal episodes. However I am not very convinced about this. Patient has been having episodes of headaches and is being followed by the neurology for this. (2) Atherosclerotic heart disease of [place] coronary artery with other forms of angina pectoris: This patient had PCI of the RCA and the obtuse marginal artery before. Based on the angiogram findings, further management decisions will be made. (3) Syncope: The etiology is unclear. Based on the patient's clinical progress, further management decisions will be made. Qualifiers: Syncope type: unspecified Qualified Code(s): R55 - Syncope and collapse (4) Hypercholesterolemia: May continue on the current medications. (5) Mild aortic valve stenosis: Obviously this should not be causing any syncopal episode. May continue on the current management. (6) Bilateral carotid artery stenosis: Patient had a carotid Doppler examination in the past he had a 50 to 69% stenosis on the left side and less than 50% stenosis on the right side.. Will continue the risk modifying measures. Next patient is an [id number] what Plan The risk and benefits of the cardiac catheterization were discussed with the patient. The risk of bleeding, hematoma, vascular injury, myocardial infarction, myocardial perforation, malignant cardiac arrhythmias ,CVA, renal failure and other concomitant complications were explained in detail. Patient understood this well and consented to proceed. If the patient requires a surgical revascularization, he needs to be transferred to another facility where it can be performed. This also was discussed with the patient and family which he understood well based on the results of the above, further recommendations will be made. Attestations Medical Necessity Statement*: Patient requires continued hospital stay for close monitoring and further management Coding Level of Care Code 33626 Diagnoses Abnormal nuclear stress test R94.39 Atherosclerotic heart disease of [place] coronary artery with other forms of angina pectoris I25.118 Syncope, unspecified syncope type R55 Syncope type: unspecified Hypercholesterolemia E78.00 Mild aortic valve stenosis I35.0 Bilateral carotid artery stenosis I65.23
--- NOTE | 2023-10-03 08:45 | PC.PHAR ---
Addendum entered by Argentina Coats 10/03/23 12:10: [facility] FOR [facility] L[facility]. LEFT MSG 12;10 PM Original Note: PT IS [facility] L[facility] 7:55AM 10/03/23
[2023-10-03] MEDS: clopidogrel 75 mg Tablet PO (08:48)
[2023-10-03] MEDS: aspirin 81 mg EC Tablet PO (08:48)
[2023-10-03] MEDS: nitroglycerin 1 gm/inch oint Pkt 1 INCH TOPICAL (08:49)
[2023-10-03] MEDS: citalopram 20 mg Tablet PO (08:49)
[2023-10-03] MEDS: tamsulosin 0.4 mg Capsule 0.400000000000000022 MG PO (08:49)
[2023-10-03] MEDS: ezetimibe 10 mg Tablet PO (08:49)
[2023-10-03] MEDS: metoprolol tartrate 50 mg Tablet PO ×2 (09:02→21:31)
[2023-10-03] MEDS: insulin lispro 100 unit/1 mL SUBCUT ×4 (09:03→21:31)
--- NOTE | 2023-10-03 10:23 | PC.NURSE ---
Patient has been frequently getting up to urinate and only small amounts at a time. Palpated bladder and feels distended. Nurse Bladder scanned and it shows 512mL retained. Nurse explained to the patient that he will alert Dr javier and will likely receive an order for a straight or pittman catheter. Patient refused a catheter. Nurse explained the risk of bladder injury associated with a distended bladder, but the patient still refused. Patient is scheduled to get an angiogram later today and agreed to get a catheter while sedated during the angiogram. NUrse alerted Dr javier and received orders to stop maintenance fluids.
--- NOTE | 2023-10-03 11:08 | PC.PT ---
PT evaluation attempted. Nursing reports patient is just wanting to sleep, he has been up with nursing to BSC a few times. Patient declined evaluation in AM stating he wanted just sleep.
[2023-10-03] MEDS: pantoprazole 40 mg SDV IVP ×2 (11:37→23:17)
[2023-10-03 11:48] LABS: Glucose Point of Care 158 mg/dL (70-110)
--- NOTE | 2023-10-03 12:37 | PM.PN ---
Subjective Subjective: No new complaints today. Plan for coronary angiogram this afternoon. Medications: Medication Review Details: Current Medications Acetaminophen (Acetaminophen 325 Mg Tablet) 650 mg PO Q6H PRN PRN Reason: Mild/Mod Pain Or Temp >/= 101 Albuterol Sulfate (Albuterol 2.5 Mg/3 Ml Neb) 2.5 mg INHALATION Q4H.RESPIRATORY PRN PRN Reason: SHORTNESS OF BREATH Aspirin (Aspirin 81 Mg Ec Tablet) 81 mg PO DAILY YASEMIN Bisacodyl (Bisacodyl 5 Mg Tablet) 10 mg PO DAILY PRN; Protocol PRN Reason: Constipation (see protocol) Citalopram Hydrobromide (Citalopram 20 Mg Tablet) 20 mg PO DAILY YASEMIN Clopidogrel Bisulfate (Clopidogrel 75 Mg Tablet) 75 mg PO DAILY [facility] Last Admin: 10/02/23 15:27 Dose: Not Given Ezetimibe (Ezetimibe 10 Mg Tablet) 10 mg PO DAILY [facility] Enoxaparin Sodium (Enoxaparin 100 Mg/Ml Syringe) 90 mg 1 mg/kg (90 mg) SUBCUT Q12H [facility] Last Admin: 10/03/23 04:04 Dose: 90 mg Sodium Chloride (Sodium Chloride 0.9%) 1,000 mls @ 75 mls/hr IV .[id number] [facility] Last Admin: 10/02/23 23:03 Dose: 75 mls/hr Dextrose (D5w) 500 mls @ 0 mls/hr IV ONCE PRN; Protocol PRN Reason: Adult Acute Hypoglycemia Prot Dextrose (D10w) 125 mls @ 750 mls/hr IV PRN PRN; Protocol PRN Reason: Adult Acute Hypoglycemia Nursing Protocol Dextrose (D10w) 250 mls @ 1,000 mls/hr IV PRN PRN; Protocol PRN Reason: Adult Acute Hypoglycemia Nursing Protocol Insulin Human Lispro (Insulin Lispro 100 Unit/1 Ml) 0 unit SUBCUT WM&BEDTIME YASEMIN; Protocol Last Admin: 10/02/23 20:09 Dose: 6 unit Lactulose (Lactulose Oral Liq 20 Gm/30 Ml Udc) 10 gm PO DAILY PRN; Protocol PRN Reason: Constipation (see protocol) Lanolin (Lanolin Oint 7 Gm) 1 applic TOPICAL PRN PRN PRN Reason: DRYNESS Last Admin: 10/03/23 04:22 Dose: 1 applic Magnesium Hydroxide (Magnesium Hydroxide 30 Ml Udc) 30 ml PO DAILY PRN; Protocol PRN Reason: Constipation (see protocol) Morphine Sulfate (Morphine 4 Mg/Ml Sdv 1 Ml) 2 mg IVP Q4H PRN PRN Reason: SEVERE PAIN Ondansetron HCl (Ondansetron 2 Mg/Ml Sdv 2 Ml) 4 mg IVP Q8H PRN PRN Reason: vomiting, or N/V if npo Last Admin: 10/03/23 04:03 Dose: 4 mg Pantoprazole Sodium (Pantoprazole 40 Mg Sdv) 40 mg IVP Q12H YASEMIN Last Admin: 10/02/23 23:03 Dose: 40 mg Tamsulosin HCl (Tamsulosin 0.4 Mg Capsule) 0.4 mg PO DAILY [facility] Vitals/I&O/Wt Last Vital Signs Temp 97.9 F 10/03/23 08:00 Pulse 72 10/03/23 08:49 Resp 17 10/03/23 08:40 BP 162/72 10/03/23 08:49 Pulse Ox 97 10/03/23 08:40 O2 Del Method Room Air 10/03/23 08:40 O2 Flow Rate 2 10/02/23 12:00 10/02/23 10/03/23 10/03/23 22:59 06:59 14:59 Intake Total 1161.667 / 1161.667 303.75 / 1465.417 850 / 850 Output Total 700 / 850 650 / 1500 700 / 700 Balance 461.667 / 311.667 -346.25 / -34.583 150 / 150 Weight last 48 hrs Weight 97.994 kg Weight 94.347 kg Weight 94.347 kg Physical Exam Narrative: General: No acute distress, AO x3 HEENT: PERRLA, pupils bilaterally equal and reactive, pallors not present Chest: Normal vesicular breath sounds, no added sounds, equal good air entry bilaterally CVS: S1-S2 regular, no murmurs, no tachycardia, no gallops, no rubs Abdomen: Soft, nontender, no organomegaly, bowel sounds present Neuro: No focal deficits, no facial deformity, AO x3, power 5/5 in all limbs Data 10/03/23 05:36 10/03/23 05:36 A&P Assessment and plan (1) Syncope: Most likely in setting of accidental drug overdose including medications of metoprolol, amlodipine, lisinopril, gabapentin, Lasix. Patient took double dose of all his medications overnight. Does have frequent episodes of syncope as an outpatient prior to this as well. Could be in setting of recurrent hypoglycemia. Check CT head, urinalysis, drug screen, troponin cycle, physical therapy. Fall precaution, seizure precaution. Continue to monitor. Mean artery pressure target over 65. Monitor heart rate. Telemonitoring. October 03, 2023: No syncopal episodes noted in the hospital. CT head without acute intracranial abnormality. Chronic lacunar infarcts in bilateral basal ganglia. Carotid Doppler without signs of hemodynamically significant lesions of the internal carotid. Elevated velocity in the external carotid artery origin on the right side, may have possibly significant stenosis, however unlikely to be in explanation of his symptoms. Troponin baseline 67--.> 2-hour 68--> 6-hour 58. Cardiology consulted, plan for coronary angiogram today. Blood pressure and heart rate stable today. Trending towards hypertension with blood pressure 160/70. Resumed home doses of metoprolol 50 mg twice daily and lisinopril 40 mg daily. Discontinue IV fluids, renal function improving today. Qualifiers: Syncope type: unspecified Qualified Code(s): R55 - Syncope and collapse (2) Accidental drug overdose: As above (3) Positive cardiac stress test: Recent stress test on 08/31/2023 showed moderate area of reversible defect involving anterior, anterior lateral inferior lateral region suggesting ischemia in LAD and circumflex artery. Currently chest pain-free. Check A1c, lipid panel. Continue with home dose of aspirin, Plavix, statin, metoprolol from tomorrow. Can restart metoprolol if heart rate better. Depending on the troponin cycle we will plan to consult cardiology. If troponin cycled negative can plan to consult cardiology next 24 hours for possible cardiac angiogram. Concerns for non-ST elevation [place] at outside hospital. Getting troponin cycle as above. For now continue with full dose Lovenox 1 mg/kg body weight every 12 hourly. If troponin cycled negative will change to prophylactic dose Lovenox October 03, 2023. Plan for coronary angiogram this afternoon Continue with Lovenox. Appreciate cardiology recommendations. (4) Type 2 diabetes mellitus without complications: Check A1c. Patient takes Lantus 60 units twice daily along with 10 units of Humalog with each meal. With episodes of hypoglycemia. For now hold off on Lantus. Start on insulin sliding scale low-dose protocol. Will start on Lantus as per insulin requirements next 24 hours. Hemoglobin A1c at 9.9 Continue with sliding scale for now, will reassess dose adjustments at discharge. (5) Hypoglycemia: (6) Atherosclerotic heart disease of [place] coronary artery with other forms of angina pectoris: (7) Carotid stenosis: Qualifiers: Laterality: left Qualified Code(s): I65.22 - Occlusion and stenosis of left carotid artery Plan Full code Daughter will be the DPOA. Carb consistent diet Protonix 40 mg IV twice daily as patient took double the dose of full dose aspirin and Plavix today. Full dose Lovenox will be sufficient for DVT prophylaxis Patient noted to be retaining 500 cc urine, however he is refusing Iraheta catheterization or intermittent straight cath. Wishes to continue attempts at passing urine normally. Acute kidney injury is improving. Discontinue IV fluids. Attestations Medical Necessity Statement*: Plan coronary angiogram this afternoon Coding Level of Care Code Acute Code for Chg Fwd High MDM includes number and complexity of problems actively addressed during encounter, amount and/or complexity of data reviewed/ordered and described risk of complication, morbidity or mortality of management as documented Diagnoses Syncope, unspecified syncope type R55 Syncope type: unspecified Accidental drug overdose T50.901A Positive cardiac stress test R94.39 Type 2 diabetes mellitus without complications E11.9 Hypoglycemia E16.2 Atherosclerotic heart disease of [place] coronary artery with other forms of angina pectoris I25.118 Stenosis of left carotid artery I65.22 Laterality: left
--- NOTE | 2023-10-03 13:42 | XRR_ITS ---
PROCEDURE INFORMATION: Exam: XR Chest Exam date and time: 10/03/2023 1:51 PM Age: 68 years old Clinical indication: Pre-operative exam; Cardiovascular screening and respiratory screening exam; Additional info: Pre angiogram TECHNIQUE: Imaging protocol: Radiologic exam of the chest. Views: 1 view. COMPARISON: CR XR chest 2V* [id number] 07/24/2019 6:01 AM FINDINGS: Tubes, catheters and devices: Loop recorder device overlies the heart. Airway: Patent Lungs: Low lung volumes causes crowding of the bronchovascular structures. No acute interstitial or airspace disease. Pleural spaces: Unremarkable. No pleural effusion. No pneumothorax. Heart/Mediastinum: Cardiomediastinal silhouette is magnified due to technique. Bones/joints: No acute skeletal abnormality or aggressive osseous lesion. XR/XR chest 1V portable [id number] IMPRESSION: No acute findings.
--- NOTE | 2023-10-03 13:50 | PC.NURSE ---
Dr redd ordered to conitnue IV fluids for upcoming cath procedure, reduced rate to 50ml/hr considering urinary hesitancy. Currently documenting on previous maintenance fluid order, will scan under Dr redd's order when fluid bag needs replaced.
[2023-10-03] MEDS: diphenhydrAMINE 50 mg Capsule PO (15:32)
[2023-10-03 15:45] LABS: Glucose Point of Care 201 mg/dL (70-110)
--- NOTE | 2023-10-03 16:00 | XACV_ITS ---
Exam Room: 2 Ht: 178 cm Wt: 98 kg BSA: 2.23 m2 Gender: Male : 1955 Any Known Allergies: Other Exam Priority: Routine Procedure(s): Procedure Description: Diagnostic procedure Procedure Description: Coronary Angiography Procedure Description: Pressure Wire Jayjay TRINH; Diagnostic Cath Status: Urgent Diagnostic Findings * The left main is a medium caliber vessel which was found to have minimal intimal irregularities with no significant stenotic lesions. * The left anterior descending artery is a medium caliber vessel which appears to wrap around the LV apex. The proximal and the mid LAD was found to have moderate diffuse calcification. The first diagonal branch was found to have 99% proximal stenosis including the ostium. There is a relatively small caliber vessel. The first and second septal poultry and fish butcher branches also were found to have a high-grade ostial stenosis. Mild to moderate diffuse disease was noted in the distal artery around the LV apex. * The left circumflex artery is a small to medium caliber nondominant vessel which continues as the large first obtuse marginal branch. The circumflex proper appears to be rudimentary in the groove. The proximal stented segment of the first OM branch was found to be widely patent. The ostium of the circumflex artery was found to have around 60% stenosis. * The right coronary artery is a medium caliber dominant vessel which was found to have mild diffuse disease proximally. The around the proximal end of the stented segment there was a 40 to 50% narrowing. The PDA branch of the artery was found to have moderate diffuse disease proximally. She is a relatively small caliber vessel. The PLV branch also was found to have moderate diffuse disease. No other significant stenotic lesions were noted. Interventional Findings * Procedure detail: We engaged the left main artery with XB 3.5 guide catheter. IV heparin administered to maintain anticoagulation. After normalization, we advanced IFR wire into the distal vessel. iFR value of 0.96 was obtained that was nonischemic. As it was non-ischemic, medical therapy was decided. Patient left clinical lab assistant in a stable condition. . Conclusions 1. This 68-year-old white female with a previous history of coronary disease and PCI, presenting with recurrent episodes of chest pains and syncope. He had a Myocardial perfusion imaging on 08/31/2023 which revealed a moderate area of reversible defect involving the anterior, anterolateral and inferolateral regions suggesting ischemia in the distribution of the left anterior descending artery/circumflex artery. In view of his presenting symptoms, in order to further evaluate his coronary status, a cardiac catheterization was recommended. Patient underwent left heart catheterization with left and right coronary angiogram today. The findings are as follows. 2. High-grade lesions in the small diagonal and septal perforators of the left anterior descending artery. Moderate ostial stenosis of the circumflex artery. Moderate diffuse disease in the PDA and the PLV branches the right coronary artery. Mild diffuse disease in the other vessels. 3. Based on the angiogram findings, it was thought to be appropriate to consider IFR of the ostial circumflex lesion. I reviewed and discussed the cardiac catheterization data with Dr. Guajardo. Dr. Guajardo took over further management of this patient at this point. 4. Moderate ostial Left circumflex artery stenosis. iFR is non-ischemic. Recommendations * Aggressive medical therapy. * Outpatient cardiology follow up in 4 weeks. Interventional RX Recommendation: medical therapy and/or counseling Diagnostic RX Recommendation: other cardiac therapy w/o CABG/PCI Anticoagulation: Heparin Left Ventriculography Findings: * LV gram was not performed the subclavian artery was found to be very tortuous. There was technical difficulty in advancing the catheter into the ventricle. Pressures Phase:Rest AO : 120 / 78 ( 98 ) @ 5:57:00 PM 118 / 78 ( 97 ) @ 5:57:00 PM 126 / 79 ( 102 ) @ 5:59:00 PM 200 / 73 ( 122 ) @ 6:06:00 PM 171 / 79 ( 113 ) @ 6:21:00 PM 149 / 78 ( 108 ) @ 6:23:00 PM Clinical Evaluation EBL: 5mL-10mL Procedural Details Procedure Consent Obtained. Current Diagnosis : Chest Pain. Pre-Procedure Time Out. Identified patient by full name and date of as verbalized by the patient/guarantor. Does the consent match the physician's order: Yes. Accurate & Complete Informed Consent: Yes. Inpatient/Outpatient History & Physical on Chart: Yes. If H&P is completed, is and addenduem needed: No; If yes, is the addendum complete: N/A. Visualize and Verify Site with Patient/Guarantor: N/A. Relevant Radiology Images available: Yes. Pre-op teaching completed and patient verbalized understanding. The risks, benefits, and alternatives of sedation and/or procedure were discussed by physician. The patient agrees to continue. Procedure started. [facility] Clinical Fraility Score: 4: Vulnerable. Ceramic Coater Indications: ACS > 24 hours. Chest Pain Symptom Assessment: Typical Angina Symptoms. Correct patient, site and procedure confirmed by cath team. Current diagnosis: NSTEMI. PERRLA. Strong, equal hand watermaster bilaterally. Lungs clear x 5 lobes. IV Site on Arrival: 18 gauge in the left anticubital. IV Fluids: 0.9% NaCl at KVO. 800 mL infused prior to clinical lab assistant. Oxygen started at 2liters/min via nasal canula. right groin was prepped with chloroprep then draped in the usual sterile fashion. right radial was prepped with chloroprep then draped in the usual sterile fashion. Physician notified. Baseline sample Acquired. HR: 90 BPM. Physician arrived. Physician scrubbed in. Immediate Pre-Procedure Time Out. Correct Patient: Yes; Correct Procedure: Yes; Correct Site: Yes; Correct Patient Position: Yes; Correct Supplies: Yes; Dried Flammable Prep: Yes; Blood Products Available: N/A;. Lidocaine 1% infiltrated to the right radial. Arterial access obtained. A 5 aust[place]ian Marcos catheter in over wire. Wire out. Contrast hand injected through the catheter. Glidewire inserted through the catheter. Catheter removed over the glide wire. A 5 australian TIG catheter in over wire. Multiple views taken of right coronary artery. Catheter redirected to the LCA. Multiple views taken of left coronary artery. Catheter hooked up to heparnized saline at KVO to maintain patency. Dr. Ro and Dr. Guajardo reviewing films. Catheter removed over the exchange wire. Dr. Ro scrubbed out. A TR Band was successful obtaining hemostatsis at the Right Radial artery insertion site. Dr. Guajardo scrubbed in. Lidocaine 1% infiltrated to the right groin. Arterial access obtained with micropuncture set. 6 australian XB 3.5 guide catheter was inserted over the wire. IFR guidewire was advanced through the guide catheter to lesion in the prox Circ. IFR Results: 0.96. IFR wire out. Results checked. Guide catheter out. Lidocaine 1% infiltrated to the right groin. A Angio-Seal VIP ([place]) was successful obtaining hemostatsis at the Right Femoral artery insertion site. Post Procedure: Pulses reassessed and unchanged. A 16Fr pittman catheter was attempted. The patient refused. PERRLA. Strong, equal hand watermaster bilaterally. No VTE prophylaxis required. Medication's Wasted: Heparin = 2000 units. Medication's Wasted: Nitro = 49.8 mcg. Total IV fluids: 80 mL. Complications: None. Estimated blood loss: 5mL-10mL. Responsiveness - Normal response to verbal stimuli; alert and oriented, PERRLA. Airway - Unaffected, no intervention required; spontaneous ventilation. Circulation: W/N/L, pulses unchanged. Nausea/Vomiting: No. Procedure completed. Vital chart was stopped. Patient transferred by bed to ICU. Access Site Site: Right Radial artery Sheath Size: 6 Fr Hemostasis Method: TR Band Hemostasis Success: Successful Site: Right Femoral artery Sheath Size: 6 Fr Hemostasis Method: Angio-Seal VIP ([place]) Hemostasis Success: Successful Procedure Medications Start: 4:33 PM Stop: 4:33 PM Medication: Versed Amount: 1 mg Route: I.V. Start: 4:34 PM Stop: 4:34 PM Medication: Fentanyl Amount: 25 mcg Route: I.V. Start: 4:42 PM Stop: 4:42 PM Medication: Fentanyl Amount: 25 mcg Route: I.V. Start: 4:43 PM Stop: 4:43 PM Medication: Fentanyl Amount: 25 mcg Route: I.V. Start: 4:44 PM Stop: 4:44 PM Medication: Verapamil Amount: 5 mg Route: I.A. Start: 4:44 PM Stop: 4:44 PM Medication: Nitrogylcerin Amount: 200 mcg Route: I.A. Start: 5:19 PM Stop: 5:19 PM Medication: Heparin Amount: 9000 units Route: I.V. Start: 5:26 PM Stop: 5:26 PM Medication: Fentanyl Amount: 25 mcg Route: I.V. Start: 5:29 PM Stop: 5:29 PM Medication: Versed Amount: 0.5 mg Route: I.V. Start: 5:32 PM Stop: 5:32 PM Medication: Versed Amount: 0.5 mg Route: I.V. I, the attending physician, have reviewed and verified all procedure medications. Yes, all medications given per verbal order History/Risk Factors Hypertension: Yes Dyslipidemia: Yes Peripheral Arterial Disease (PAD): No Myocardial Infarction (PR): No Obesity: No Renal Disease: No Tobacco Use: Current/Recent(w/in 1 year) Prior Interventions PCI: No CABG: No Valve Surgery: No Report Signatures Interventional Workflow Finalized by Héctor Guajardo MD on 10/10/2023 10:56 AM Diagnostic Workflow Finalized by Dr Galdino Ro MD [facility] on 10/05/2023 11:01 PM
--- NOTE | 2023-10-03 16:34 | W.PM.OPSUD ---
Surgery/Procedure H&P Update DATE OF PROCEDURE: October 03, 2023 DATE H&P PERFORMED: 10/02/23 H&P UPDATE INFORMATION: I have reviewed H&P completed within last 30 days, I have examined patient prior to procedure and No changes to prior documentation PREOP DIAGNOSIS: ASHD PRIMARY INDICATION FOR PROCEDURE: CP/ abnormal stress test PLANNED PROCEDURE: [facility] with coronary angio and possible PCI PATIENT REASSESSED PRIOR TO SEDATION, WITH NO CHANGE NOTED: Yes PHYSICAL EXAM: alert, oriented x 3, clear to auscultation bilaterally and regular rate & rhythm AIRWAY EVAL/ANESTHESIA PLAN: normal airway, see other exam findings, ASA III, Monitored Anesthesia, Local Anesthesia, Risks, benefits & alternatives of sedation and/or procedure discussed and Patient agrees to continue as planned
--- NOTE | 2023-10-03 19:28 | PC.NURSE ---
Recieved patient back form veterinarian laboratory animal care at 1800. Patient is lethargic, but slowly waking up. BP:154/73, HR:63, Temp:98.9. SPO2: 95% on room air. Angioseal in place. No hematoma, palpated. Patient and family educated on need to stay flat for 4 hours. Family understands, but patient is unable to comprehend. THe need to stay flat was discussed with the patient before that procedure as well. Earlier in the day, patient was having bladder distention, urinary hesitancy, and incomplete emptying. He has a prostate history and sees a urologust for it. Distention and concerns for being compliant with laying flat after angiogram prompted us to place a pittman, HOwever, patient refused. Patient agreed to a pittman catheter only if it was placed during the angiogram/conscious sedation. However, after the angigram the patient demanded removal of pittman catheter. Patient does not have a pittman.
--- NOTE | 2023-10-03 19:34 | PC.NURSE ---
Upon shift shange, it was noted during bedside report that the patients abdomen is distended and hard, harder on the right side. Patient does have a large abdomen at baseline, but not this hard. There is some suprapubic swelling too. Bladder scan shows 450mL retained. Distended bladder has made it difficult to determine if the suprapubic swelling is from bladder or a hematoma. Due to concerns of bleeding, nurse attempted to call Dr harrison for further assessment but he is in a procedure, Dr Redd called to bedside. Dr redd recommends Straight cath to assist in assessment, but patient adamantly refuses. Patient refuses to use a urinal. Will only urinate if he can sit on the bedside commode which is not possible at this time due to post cath bedrest requirement. He cannot get up to sit until 10pm. Due to no flank/back pain, Dr redd is doubtful of retroperitoneal bleed and would like us to reassess after 10pm when patient has gotten up to urinate.
[2023-10-03 21:15] LABS: Glucose Point of Care 289 mg/dL (70-110)
[2023-10-03] MEDS: lisinopril 20 mg Tablet 40 MG PO (21:31)
[2023-10-04] VITALS (46 sets, daily range): BP systolic 112–167; BP diastolic 54–117; PULSE 63–84; RESP 1–22; TEMP 36.8–36.9; O2SAT 88–97
[2023-10-04] MEDS: ondansetron 2 mg/ML SDV 2 mL 4 MG IVP (03:35)
[2023-10-04 05:41] LABS: Basophils % 0.3 %; Eosinophils # 0.3 10^3/uL (0.0-0.8); Eosinophils % 2.5 %; Hematocrit 37.8 % (37-53); Lymphocytes # 2.1 10^3/uL (0.8-4.8); Mean Corpuscular HGB Conc 33.6 g/dL (30-55); Mean Corpuscular Hemoglobin 31.1 pg (27-33); Mean Corpuscular Volume 92.6 fl (82-101); Mean Platelet Volume 9.5 fL (7.4-10.4); Monocytes # 0.7 10^3/uL (0.2-0.9); Monocytes % 6.4 %; Neutrophils # 8.42 10^3/uL (1.8-7.7); Neutrophils % 72.4 %; Nucleated Red Blood Cells % 0 %; Platelet Count 210 10^3/cmm (157-399); Red Blood Count 4.08 10^6/uL (3.85-5.65); Red Cell Distribution Width 13.5 % (12.1-15.1); White Blood Count 11.62 10^3/uL (3.29-11.43)
[2023-10-04] MEDS: enoxaparin 100 mg/mL Syringe 90 MG SUBCUT (05:52)
[2023-10-04 06:08] LABS: Alanine Aminotransferase 20 U/L (0-41); Albumin Level 3.3 g/dL (3.5-5.2); Alkaline Phosphatase 62 U/L (40-130); Anion Gap 14.1 (5-19); Aspartate Amino Transferase 15 U/L (0-40); Blood Urea Nitrogen 14 mg/dL (8-23); Calcium 8.6 mg/dL (8.5-10.5); Carbon Dioxide 25 mmol/L (22-29); Chloride 107 mmol/L (98-107); Globulin 2.8 g/dL (1.3-4.6); Glomerular Filtration Rate 74.3 mL/min (90-130); Glucose 259 mg/dL (65-115); Osmolality Calculated 303 mOsm/kg (285-295); Potassium 4.1 mmol/L (3.5-5.1); Sodium 142 mmol/L (136-145); Total Bilirubin 0.3 mg/dL (0.15-1.2); Total Protein 6.1 g/dL (6.6-8.7)
[2023-10-04 07:50] LABS: Glucose Point of Care 388 mg/dL (70-110)
[2023-10-04 08:20] LABS: Glucose Point of Care 200 mg/dL (70-110)
[2023-10-04] MEDS: aspirin 81 mg EC Tablet PO (08:21)
[2023-10-04] MEDS: ezetimibe 10 mg Tablet PO (08:21)
[2023-10-04] MEDS: clopidogrel 75 mg Tablet PO (08:21)
[2023-10-04] MEDS: tamsulosin 0.4 mg Capsule 0.400000000000000022 MG PO (08:21)
[2023-10-04] MEDS: lisinopril 20 mg Tablet 40 MG PO (08:21)
[2023-10-04] MEDS: sodium chloride 0.9% 1,000 ML 50 ML IV (08:22)
[2023-10-04] MEDS: insulin lispro 100 unit/1 mL SUBCUT (08:22)
[2023-10-04] MEDS: citalopram 20 mg Tablet PO (08:22)
[2023-10-04] MEDS: metoprolol tartrate 50 mg Tablet PO (08:59)
--- NOTE | 2023-10-04 09:21 | PM.PN ---
Subjective Subjective: Patient had the cardiac catheterization yesterday. He was found to have no revascularizable lesions. Based on the angiographic findings, it was opted to treat him medically. Medications: Medication Review Details: Current Medications Acetaminophen (Acetaminophen 325 Mg Tablet) 650 mg PO Q6H PRN PRN Reason: Mild/Mod Pain Or Temp >/= 101 Albuterol Sulfate (Albuterol 2.5 Mg/3 Ml Neb) 2.5 mg INHALATION Q4H.RESPIRATORY PRN PRN Reason: SHORTNESS OF BREATH Aspirin (Aspirin 81 Mg Ec Tablet) 81 mg PO DAILY [facility] Last Admin: 10/04/23 08:21 Dose: 81 mg Bisacodyl (Bisacodyl 5 Mg Tablet) 10 mg PO DAILY PRN; Protocol PRN Reason: Constipation (see protocol) Citalopram Hydrobromide (Citalopram 20 Mg Tablet) 20 mg PO DAILY [facility] Last Admin: 10/04/23 08:22 Dose: 20 mg Clopidogrel Bisulfate (Clopidogrel 75 Mg Tablet) 75 mg PO DAILY [facility] Last Admin: 10/04/23 08:21 Dose: 75 mg Ezetimibe (Ezetimibe 10 Mg Tablet) 10 mg PO DAILY [facility] Last Admin: 10/04/23 08:21 Dose: 10 mg Enoxaparin Sodium (Enoxaparin 100 Mg/Ml Syringe) 90 mg 1 mg/kg (90 mg) SUBCUT Q12H [facility] Last Admin: 10/04/23 05:52 Dose: 90 mg Dextrose (D5w) 500 mls @ 0 mls/hr IV ONCE PRN; Protocol PRN Reason: Adult Acute Hypoglycemia Prot Dextrose (D10w) 125 mls @ 750 mls/hr IV PRN PRN; Protocol PRN Reason: Adult Acute Hypoglycemia Nursing Protocol Dextrose (D10w) 250 mls @ 1,000 mls/hr IV PRN PRN; Protocol PRN Reason: Adult Acute Hypoglycemia Nursing Protocol Sodium Chloride (Sodium Chloride 0.9%) 1,000 mls @ 50 mls/hr IV .Q20H ONE Stop: 10/04/23 09:27 Last Admin: 10/04/23 08:22 Dose: 50 mls/hr Insulin Human Lispro (Insulin Lispro 100 Unit/1 Ml) 0 unit SUBCUT WM&BEDTIME [facility]; Protocol Last Admin: 10/04/23 08:22 Dose: 12 unit Lactulose (Lactulose Oral Liq 20 Gm/30 Ml Udc) 10 gm PO DAILY PRN; Protocol PRN Reason: Constipation (see protocol) Lanolin (Lanolin Oint 7 Gm) 1 applic TOPICAL PRN PRN PRN Reason: DRYNESS Last Admin: 10/03/23 04:22 Dose: 1 applic Lisinopril (Lisinopril 20 Mg Tablet) 40 mg PO DAILY [facility] Last Admin: 10/04/23 08:21 Dose: 40 mg Magnesium Hydroxide (Magnesium Hydroxide 30 Ml Udc) 30 ml PO DAILY PRN; Protocol PRN Reason: Constipation (see protocol) Metoprolol Tartrate (Metoprolol Tartrate 50 Mg Tablet) 50 mg PO BID@0900,2100 [facility] Last Admin: 10/04/23 08:59 Dose: 50 mg Morphine Sulfate (Morphine 4 Mg/Ml Sdv 1 Ml) 2 mg IVP Q4H PRN PRN Reason: SEVERE PAIN Ondansetron HCl (Ondansetron 2 Mg/Ml Sdv 2 Ml) 4 mg IVP Q8H PRN PRN Reason: vomiting, or N/V if npo Last Admin: 10/04/23 03:35 Dose: 4 mg Pantoprazole Sodium (Pantoprazole 40 Mg Sdv) 40 mg IVP Q12H [facility] Last Admin: 10/03/23 23:17 Dose: 40 mg Tamsulosin HCl (Tamsulosin 0.4 Mg Capsule) 0.4 mg PO DAILY [facility] Last Admin: 10/04/23 08:21 Dose: 0.4 mg Vitals/I&O/Wt Last Vital Signs Temp 98.2 F 10/04/23 08:00 Pulse 78 10/04/23 09:00 Resp 19 H 10/04/23 09:00 BP 150/79 10/04/23 09:00 Pulse Ox 88 L 10/04/23 09:00 O2 Del Method Room Air 10/04/23 04:45 O2 Flow Rate 2 10/02/23 12:00 10/03/23 10/04/23 10/04/23 22:59 06:59 14:59 Intake Total 400 / 400 Output Total 300 / 1300 475 / 1775 Balance -300 / -450 -475 / -925 400 / 400 Weight last 48 hrs Weight 211 lb Weight 213 lb 13.574 oz Weight 216 lb 0.64 oz Weight 208 lb Physical Exam Narrative: GENERAL: The patient is alert and oriented times three. Not in any acute distress. HEENT: No significant pallor, icterus or lymphadenopathy.Oral cavity: There are no mucous membrane lesions. NECK: Trachea appears to be central. No masses noted. No JVD or thyromegaly appreciated. RESPIRATORY: Chest is symmetrical. No intercostals muscle retraction or any accessory muscle activation. There is no chest wall tenderness. Breath sounds are heard bilaterally. No rales or rhonchi heard. No evidence of any consolidation. BREASTS: Deferred. HEART: The heart sounds are normal. No S3 or S4. No significant murmurs. No pericardial rub ABDOMEN: No vessel pulsations or distention. No tenderness. No organomegaly appreciated. Bowel sounds are normally heard. : Deferred. RECTAL: Deferred. LYMPHATIC: No lymphadenopathy noted in the neck. EXTREMITIES: The radial arterial puncture site has no hematoma bleeding. Femoral arterial puncture site also has no hematoma. Minimal bruising. Good distal pulses. MUSCULOSKELETAL: No acute joint deformities or swelling SKIN: There are no significant rashes or ecchymosis NEUROPSYCHIATRIC: The patient is alert and oriented x3. Appears to be in a good mood. No tremors or rigidity noted. Data 10/04/23 05:03 10/04/23 05:03 Other Labs: Laboratory Last Values WBC 11.62 10^3/uL (3.29-11.43) H 10/04/23 05:03 RBC 4.08 10^6/uL (3.85-5.65) 10/04/23 05:03 Hgb 12.70 g/dL (11.27-16.99) 10/04/23 05:03 Hct 37.8 % (37-53) 10/04/23 05:03 MCV 92.6 fl (82-101) 10/04/23 05:03 MCH 31.1 pg (27-33) 10/04/23 05:03 MCHC 33.6 g/dL (30-55) 10/04/23 05:03 RDW 13.5 % (12.1-15.1) 10/04/23 05:03 Plt Count 210 10^3/cmm (157-399) 10/04/23 05:03 MPV 9.5 fL (7.4-10.4) 10/04/23 05:03 Neut % (Auto) 72.4 % 10/04/23 05:03 Lymph % (Auto) 18.0 % 10/04/23 05:03 [place] % (Auto) 6.4 % 10/04/23 05:03 Eos % (Auto) 2.5 % 10/04/23 05:03 Baso % (Auto) 0.3 % 10/04/23 05:03 Neut # (Auto) 8.42 10^3/uL (1.8-7.7) H 10/04/23 05:03 Lymph # (Auto) 2.1 10^3/uL (0.8-4.8) 10/04/23 05:03 [place] # (Auto) 0.7 10^3/uL (0.2-0.9) 10/04/23 05:03 Eos # (Auto) 0.3 10^3/uL (0.0-0.8) 10/04/23 05:03 Baso # (Auto) 0.0 10^3/uL (0.0-0.1) 10/04/23 05:03 Nucleated RBC % (auto) 0 % 10/04/23 05:03 Nucleated RBCs # 0.0 /100WBC 10/04/23 05:03 Sodium 142 mmol/L (136-145) 10/04/23 05:03 Potassium 4.1 mmol/L (3.5-5.1) 10/04/23 05:03 Chloride 107 mmol/L (98-107) 10/04/23 05:03 Carbon Dioxide 25 mmol/L (22-29) 10/04/23 05:03 Anion Gap 14.1 (5-19) 10/04/23 05:03 BUN 14 mg/dL (8-23) 10/04/23 05:03 Creatinine 1.0 mg/dL (0.7-1.2) 10/04/23 05:03 GFR Calculation 74.3 mL/min (90-130) L 10/04/23 05:03 Glucose 259 mg/dL (65-115) H 10/04/23 05:03 POC Glucose 388 mg/dL (70-110) H 10/04/23 07:48 Estimat Average Glucose 237 10/02/23 10:00 Hemoglobin A1c 9.9 % (4.0-6.0) H 10/02/23 10:00 Calculated Osmolality 303 mOsm/kg (285-295) H 10/04/23 05:03 Calcium 8.6 mg/dL (8.5-10.5) 10/04/23 05:03 Phosphorus 2.6 mg/dL (2.5-4.5) 10/03/23 05:36 Magnesium 2.2 mg/dL (1.7-2.3) 10/03/23 05:36 Iron 70 ug/dL (59-158) 10/02/23 10:00 TIBC 259 mcg/dl 10/02/23 10:00 % Saturation 27.0 % (20-50) 10/02/23 10:00 Unsat Iron Binding 189 ug/dL (112-347) 10/02/23 10:00 Total Bilirubin 0.3 mg/dL (0.15-1.2) 10/04/23 05:03 AST 15 U/L (0-40) 10/04/23 05:03 ALT 20 U/L (0-41) 10/04/23 05:03 Alkaline Phosphatase 62 U/L (40-130) 10/04/23 05:03 Troponin T Baseline 67 ng/L (0-15) H 10/02/23 10:00 Troponin T 120 Minute 68.04 ng/L (0-15) H 10/02/23 13:16 Delta Troponin T 1.04 ABS# (0-10) 10/02/23 13:16 Troponin T Hi Sens 6Hr 58.84 ng/L (0-15) H 10/02/23 18:38 Troponin T Hi Sens 6Hr Delta -8.16 ng/L (0-12) L 10/02/23 18:38 Total Protein 6.1 g/dL (6.6-8.7) L 10/04/23 05:03 Albumin 3.3 g/dL (3.5-5.2) L 10/04/23 05:03 Globulin 2.8 g/dL (1.3-4.6) 10/04/23 05:03 Triglycerides 490 mg/dL (0-150) H 10/03/23 05:36 Cholesterol 143 mg/dL (0-200) 10/03/23 05:36 LDL Cholesterol Direct 41 mg/dL (0-100) 10/03/23 05:36 LDL Cholesterol, Calc Not Reportable 10/03/23 05:36 HDL Cholesterol 32 mg/dL (60-100) L 10/03/23 05:36 LDL/HDL Ratio Not Reportable 10/03/23 05:36 Cholesterol/HDL Ratio 4.47 mg/dL (1.0-5.00) 10/03/23 05:36 Vitamin B12 913 pg/mL (232-1245) 10/02/23 10:00 Folate 10.8 ng/mL (4.5-32.2) 10/03/23 05:36 Procalcitonin 0.07 ng/mL (0-0.5) 10/02/23 10:00 TSH 1.12 uIU/mL (0.27-4.20) 10/02/23 10:00 Urine Color Yellow (Yellow) 10/02/23 11:57 Urine Appearance Clear (CLEAR) 10/02/23 11:57 Urine pH 5 (5-7) 10/02/23 11:57 Ur Specific [place] 1.015 (1.005-1.030) 10/02/23 11:57 Urine Protein Neg (Negative) 10/02/23 11:57 Urine Glucose (UA) 4+ (Normal) H 10/02/23 11:57 Urine Ketones Negative (Negative) 10/02/23 11:57 Urine Blood Neg (Negative) 10/02/23 11:57 Urine Nitrate Negative (Negative) 10/02/23 11:57 Urine Bilirubin Neg (Negative) 10/02/23 11:57 Urine Urobilinogen Norm mg/dL (Negative) 10/02/23 11:57 Ur Leukocyte Esterase Negative (Negative) 10/02/23 11:57 Urine Opiates Screen Negative ng/mL (Negative) 10/02/23 11:57 Ur Barbiturates Screen Negative ng/mL (Negative) 10/02/23 11:57 Ur Phencyclidine Scrn Negative ng/mL (Negative) 10/02/23 11:57 Ur Amphetamines Screen Negative ng/mL (Negative) 10/02/23 11:57 U Benzodiazepines Scrn Negative ng/mL (Negative) 10/02/23 11:57 Urine Cocaine Screen Negative ng/mL (Negative) 10/02/23 11:57 U Marijuana (THC) Screen Negative ng/mL (Negative) 10/02/23 11:57 A&P Assessment and plan (1) Abnormal nuclear stress test: The categorization findings were discussed with the patient. Based on the angiogram findings, it was opted to treat him medically. May continue on the current medications. (2) Atherosclerotic heart disease of [place] coronary artery with other forms of angina pectoris: This patient had PCI of the RCA and the obtuse marginal artery before. Based on the angiogram findings, further management decisions will be made. (3) Syncope: The etiology is unclear. Possibility of a cardiac arrhythmia cannot be excluded. So far no significant arrhythmia were noted on the monitor. It may be appropriate to send him home with a event monitor Qualifiers: Syncope type: unspecified Qualified Code(s): R55 - Syncope and collapse (4) Hypercholesterolemia: May continue on the current medications. (5) Mild aortic valve stenosis: Obviously this should not be causing any syncopal episode. May continue on the current management. (6) Bilateral carotid artery stenosis: Patient had a carotid Doppler examination in the past he had a 50 to 69% stenosis on the left side and less than 50% stenosis on the right side.. Will continue the risk modifying measures. Plan If the patient continues to remain stable, may be discharged home on the current medications. Discontinue the Lovenox Event monitor for 30 days as an outpatient Appointment at the [facility] to be seen by the nurse practitioner in 1 to 2 weeks Appointment with me in the office in 1 month Attestations Medical Necessity Statement*: Deferred to the primary Coding Level of Care Code 65726 Diagnoses Abnormal nuclear stress test R94.39 Atherosclerotic heart disease of [place] coronary artery with other forms of angina pectoris I25.118 Syncope, unspecified syncope type R55 Syncope type: unspecified Hypercholesterolemia E78.00 Mild aortic valve stenosis I35.0 Bilateral carotid artery stenosis I65.23
--- NOTE | 2023-10-04 10:38 | PM.DCS ---
Discharge Providers Date of Admission: 10/02/23 08:37 Date of Discharge: October 04, 2023 Attending Provider at Admission: Toni Reynolds MD Attending Provider at Discharge: Ale Toledo MD Primary Care Provider: Lorenzo Arias MD Diagnoses at Discharge Discharge Diagnosis (1) Abnormal nuclear stress test: Status: Acute (2) Atherosclerotic heart disease of [place] coronary artery with other forms of angina pectoris: Status: Acute Permanent problem details: Patient had a PCI of the right coronary artery lesion in 2016. Had a PCI of the obtuse marginal artery in 2019. (3) Syncope: Status: Acute Qualifiers: Syncope type: unspecified Qualified Code(s): R55 - Syncope and collapse (4) Hypercholesterolemia: Status: Acute (5) Mild aortic valve stenosis: Status: Acute (6) Bilateral carotid artery stenosis: Status: Acute Reason for Visit Reason for Visit: syncope Hospital Course Hospital Course 68 year old male with past medical history of hyperlipidemia, bilateral carotid artery stenosis, CAD post PCI to LCx hypertension,with recent positive stress test in August 2023 was transferred from the outside hospital with concerns for syncope and possible non-ST elevation [place]. Family members at bedside reported that he accidentally took all his medications worth 2 days including amlodipine, aspirin, Plavix, alogliptin, metoprolol, ezetimibe, gabapentin, Lasix. After that patient had 1 episode of passing out and came to the ER. As per family member he does have episode of passing out very frequently within the last few months for which stress test was done and was recently found to be positive. Initially upon admission patient was bradycardic with heart rate in the 50s and soft blood pressure. Initially all antihypertensives were placed on hold. Patient was evaluated by cardiology. And underwent a coronary angiogram on October 03, 2023 given the recently abnormal stress test. This did not show any no revascularizable lesions. He was managed medically. Antihypertensives including metoprolol, lisinopril were resumed prior to discharge. Patient was noted to be on aspirin 325 and Plavix 75 mg daily. This was changed to aspirin 81 mg and Plavix 75 mg daily.. Other evaluation of syncope included a CT head without acute intracranial abnormality.Chronic lacunar infarcts in bilateral basal ganglia. Carotid Doppler without signs of hemodynamically significant lesions of the internal carotid. Elevated velocity in the external carotid artery origin on the right side, may have possibly significant stenosis, however unlikely to be in explanation of his symptoms. Possibly hypoglycemia may have been contributing to his symptoms. Patient reports he has a continuous glucose monitor/sharon at home, however has not been recently wearing it because of device malfunction. Encouraged to resume wearing the monitor. Family states that syncopal episodes have not always correlated with hypoglycemia. During some syncopal episodes his blood sugar has been between 52-260. hba1c at 9.9. He is being discharged today in improved condition. He is eager to return home. Event monitor was recommended by cardiology and 1 has been arranged at discharge. 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 Ro in 1 month. Additional referral provided to endocrinology per patient request. Physical Exam Narrative: General: No acute distress, AO x3 HEENT: PERRLA, pupils bilaterally equal and reactive, pallors not present Chest: Normal vesicular breath sounds, no added sounds, equal good air entry bilaterally CVS: S1-S2 regular, no murmurs, no tachycardia, no gallops, no rubs Abdomen: Soft, nontender, no organomegaly, bowel sounds present Neuro: No focal deficits, no facial deformity, AO x3, power 5/5 in all limbs Discharge Data Studies Completed and Pending Completed Studies During Hospitalization Category Date Time Status CT head wo con* [id number] Routine Cat Scan 10/02/23 14:07 Completed XR chest 1V portable [id number] Routine Exams 10/03/23 13:42 Completed CV carotid duplex BI* [id number] Routine Ultrasound 10/02/23 14:07 Completed Pending at discharge Category Date Time 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 No sign of hemodynamically significant common carotid, internal carotid, or vertebral arterial stenosis. 2. Elevated velocity in the right external carotid artery origin. Possible hemodynamically significant stenosis. REFERENCES: SRU CRITERIA. The degree of internal carotid artery stenosis is based on criteria defined by the Society of Radiologists in Ultrasound (SRU). Normal is no stenosis. Mild is less than 50% stenosis. Moderate is 50-69% stenosis. Severe is greater than 69% stenosis to near occlusion. Near occlusion is a markedly narrowed lumen. Total occlusion is no detectable patent lumen. Head CT 10/02/23 14:07 IMPRESSION: 1. No acute intracranial abnormality. 2. Chronic lacunar infarcts in the bilateral basal ganglia. Chest X-Ray 10/03/23 13:42 IMPRESSION: No acute findings. Laboratory Results WBC 11.62 10^3/uL (3.29-11.43) H 10/04/23 05:03 RBC 4.08 10^6/uL (3.85-5.65) 10/04/23 05:03 Hgb 12.70 g/dL (11.27-16.99) 10/04/23 05:03 Hct 37.8 % (37-53) 10/04/23 05:03 MCV 92.6 fl (82-101) 10/04/23 05:03 MCH 31.1 pg (27-33) 10/04/23 05:03 MCHC 33.6 g/dL (30-55) 10/04/23 05:03 RDW 13.5 % (12.1-15.1) 10/04/23 05:03 Plt Count 210 10^3/cmm (157-399) 10/04/23 05:03 MPV 9.5 fL (7.4-10.4) 10/04/23 05:03 Neut % (Auto) 72.4 % 10/04/23 05:03 Lymph % (Auto) 18.0 % 10/04/23 05:03 [place] % (Auto) 6.4 % 10/04/23 05:03 Eos % (Auto) 2.5 % 10/04/23 05:03 Baso % (Auto) 0.3 % 10/04/23 05:03 Neut # (Auto) 8.42 10^3/uL (1.8-7.7) H 10/04/23 05:03 Lymph # (Auto) 2.1 10^3/uL (0.8-4.8) 10/04/23 05:03 [place] # (Auto) 0.7 10^3/uL (0.2-0.9) 10/04/23 05:03 Eos # (Auto) 0.3 10^3/uL (0.0-0.8) 10/04/23 05:03 Baso # (Auto) 0.0 10^3/uL (0.0-0.1) 10/04/23 05:03 Nucleated RBC % (auto) 0 % 10/04/23 05:03 Nucleated RBCs # 0.0 /100WBC 10/04/23 05:03 Sodium 142 mmol/L (136-145) 10/04/23 05:03 Potassium 4.1 mmol/L (3.5-5.1) 10/04/23 05:03 Chloride 107 mmol/L (98-107) 10/04/23 05:03 Carbon Dioxide 25 mmol/L (22-29) 10/04/23 05:03 Anion Gap 14.1 (5-19) 10/04/23 05:03 BUN 14 mg/dL (8-23) 10/04/23 05:03 Creatinine 1.0 mg/dL (0.7-1.2) 10/04/23 05:03 GFR Calculation 74.3 mL/min (90-130) L 10/04/23 05:03 Glucose 259 mg/dL (65-115) H 10/04/23 05:03 POC Glucose 388 mg/dL (70-110) H 10/04/23 07:48 Estimat Average Glucose 237 10/02/23 10:00 Hemoglobin A1c 9.9 % (4.0-6.0) H 10/02/23 10:00 Calculated Osmolality 303 mOsm/kg (285-295) H 10/04/23 05:03 Calcium 8.6 mg/dL (8.5-10.5) 10/04/23 05:03 Phosphorus 2.6 mg/dL (2.5-4.5) 10/03/23 05:36 Magnesium 2.2 mg/dL (1.7-2.3) 10/03/23 05:36 Iron 70 ug/dL (59-158) 10/02/23 10:00 TIBC 259 mcg/dl 10/02/23 10:00 % Saturation 27.0 % (20-50) 10/02/23 10:00 Unsat Iron Binding 189 ug/dL (112-347) 10/02/23 10:00 Total Bilirubin 0.3 mg/dL (0.15-1.2) 10/04/23 05:03 AST 15 U/L (0-40) 10/04/23 05:03 ALT 20 U/L (0-41) 10/04/23 05:03 Alkaline Phosphatase 62 U/L (40-130) 10/04/23 05:03 Troponin T Baseline 67 ng/L (0-15) H 10/02/23 10:00 Troponin T 120 Minute 68.04 ng/L (0-15) H 10/02/23 13:16 Delta Troponin T 1.04 ABS# (0-10) 10/02/23 13:16 Troponin T Hi Sens 6Hr 58.84 ng/L (0-15) H 10/02/23 18:38 Troponin T Hi Sens 6Hr Delta -8.16 ng/L (0-12) L 10/02/23 18:38 Total Protein 6.1 g/dL (6.6-8.7) L 10/04/23 05:03 Albumin 3.3 g/dL (3.5-5.2) L 10/04/23 05:03 Globulin 2.8 g/dL (1.3-4.6) 10/04/23 05:03 Triglycerides 490 mg/dL (0-150) H 10/03/23 05:36 Cholesterol 143 mg/dL (0-200) 10/03/23 05:36 LDL Cholesterol Direct 41 mg/dL (0-100) 10/03/23 05:36 LDL Cholesterol, Calc Not Reportable 10/03/23 05:36 HDL Cholesterol 32 mg/dL (60-100) L 10/03/23 05:36 LDL/HDL Ratio Not Reportable 10/03/23 05:36 Cholesterol/HDL Ratio 4.47 mg/dL (1.0-5.00) 10/03/23 05:36 Vitamin B12 913 pg/mL (232-1245) 10/02/23 10:00 Folate 10.8 ng/mL (4.5-32.2) 10/03/23 05:36 Procalcitonin 0.07 ng/mL (0-0.5) 10/02/23 10:00 TSH 1.12 uIU/mL (0.27-4.20) 10/02/23 10:00 Urine Color Yellow (Yellow) 10/02/23 11:57 Urine Appearance Clear (CLEAR) 10/02/23 11:57 Urine pH 5 (5-7) 10/02/23 11:57 Ur Specific [place] 1.015 (1.005-1.030) 10/02/23 11:57 Urine Protein Neg (Negative) 10/02/23 11:57 Urine Glucose (UA) 4+ (Normal) H 10/02/23 11:57 Urine Ketones Negative (Negative) 10/02/23 11:57 Urine Blood Neg (Negative) 10/02/23 11:57 Urine Nitrate Negative (Negative) 10/02/23 11:57 Urine Bilirubin Neg (Negative) 10/02/23 11:57 Urine Urobilinogen Norm mg/dL (Negative) 10/02/23 11:57 Ur Leukocyte Esterase Negative (Negative) 10/02/23 11:57 Urine Opiates Screen Negative ng/mL (Negative) 10/02/23 11:57 Ur Barbiturates Screen Negative ng/mL (Negative) 10/02/23 11:57 Ur Phencyclidine Scrn Negative ng/mL (Negative) 10/02/23 11:57 Ur Amphetamines Screen Negative ng/mL (Negative) 10/02/23 11:57 U Benzodiazepines Scrn Negative ng/mL (Negative) 10/02/23 11:57 Urine Cocaine Screen Negative ng/mL (Negative) 10/02/23 11:57 U Marijuana (THC) Screen Negative ng/mL (Negative) 10/02/23 11:57 Vitals Last Vital Signs Temp 98.2 F 10/04/23 08:00 Pulse 84 10/04/23 09:30 Resp 18 10/04/23 09:30 BP 150/79 10/04/23 09:00 Pulse Ox 92 10/04/23 09:30 O2 Del Method Room Air 10/04/23 09:30 O2 Flow Rate 2 10/02/23 12:00 Discharge Plan Discharge Patient Disposition: Home Condition: Stable Prescriptions: New aspirin 81 mg Tablet,Delayed Release (Dr/Ec) 81 mg PO DAILY 30 Days Qty: 30 3RF Continued nitroglycerin [Nitrostat] 0.4 mg tablet, sublingual 0.4 mg SUBLINGUAL Q5M PRN (Reason: Chest Pain) gabapentin 600 mg tablet 600 mg PO DAILY insulin aspart U-100 [Novolog FlexPen U-100 Insulin] 100 unit/mL (3 mL) insulin pen 10 unit SUBCUT TID Rx Instructions: sliding scale cholecalciferol (vitamin D3) 25 mcg (1,000 unit) capsule 1,000 unit PO DAILY montelukast 10 mg tablet 10 mg PO DAILY clopidogrel 75 mg tablet 75 mg PO DAILY ferrous gluconate 324 mg (38 mg iron) tablet 324 mg PO QMWF Lantus U-100 Insulin 100 unit/mL solution 100 unit SUBCUT DAILY Patient Comments: Patient's last dosing was 1/2 dosing the pm before. latanoprost 0.005 % drops, emulsion 1 drop ophthalmic (eye) QPM Rx Instructions: right eye lisinopril 40 mg tablet 40 mg PO DAILY meloxicam 7.5 mg tablet 7.5 mg PO DAILY potassium chloride 20 mEq tablet extended release 10 meq PO DAILY Hold Instructions: Dose Change ezetimibe 10 mg tablet 10 mg PO DAILY metoprolol tartrate 50 mg tablet 50 mg PO BID Qty: 180 3RF furosemide 40 mg tablet 40 mg PO DAILY Qty: 30 0RF pantoprazole 20 mg Tablet,Delayed Release (Dr/Ec) 20 mg PO DAILY timolol maleate 0.5 % Drops 1 drp OPHTHALMIC (EYE) BID brimonidine 0.2 % drops 1 drp ophthalmic (eye) BID azelastine 137 mcg (0.1 %) Aerosol,[place] 2 spray INTRANASAL BID Rx Instructions: administer into each nostril senna 8.6 mg Tablet 8.6 mg PO DAILY citalopram 40 mg Tablet 20 mg PO DAILY famotidine 20 mg Tablet 20 mg PO BID prednisolone acetate 1 % drops,suspension 1 drp ophthalmic (eye) QID cyanocobalamin (vitamin B-12) 500 mcg Tablet 500 mcg PO DAILY tamsulosin 0.4 mg Capsule 0.4 mg PO DAILY dexamethasone 0.1 % Drops,Suspension 1 drp OPHTHALMIC (EYE) TID loratadine 10 mg Tablet 10 mg PO DAILY Lactobacillus acidophilus Tablet,Chewable 1 tab PO DAILY diclofenac sodium 1 % Gel 4 g TOPICAL QID Rx Instructions: apply to single knee, ankle, foot; for foot includes sole/toes/top of foot empagliflozin 25 mg Tablet 25 mg PO DAILY Discontinued aspirin 325 mg Tablet,Delayed Release (Dr/Ec) 325 mg PO DAILY Discharge Orders: Discharge Order (Routine); Ordered 10/04/23 Ordered By: Ale Toledo Other Ambulatory Orders: MCT/Event Monitor 21 Days (Routine) Timeframe: 20231004 Facility: [facility] - Location: Radiology Ordered By: Ale Toledo Referrals: Galdino Ro MD [Physician] - 1 month (Perla will make this appt when you see her on the 6th) Perla Holguin FNP [Nurse Practitioner] - 10/20/23 1:00 pm Discharge Diet: Usual diet Patient Instructions: Aspirin (By mouth), Heart Attack (DC), Heart Healthy Diet (ED), Hypoglycemia in a Person with Diabetes (DC), Opioid Safety, Post Angiogram Home Care Instructions Discharge Attestations Time Spent in Discharge Care*: greater than 30 min Quality Metrics Clinical Quality Measures [ No reported AMI, CVA or VTE this stay] Coding Level of Care Code Acute Code for Chg Fwd Diagnoses Abnormal nuclear stress test R94.39 Atherosclerotic heart disease of [place] coronary artery with other forms of angina pectoris I25.118 Syncope, unspecified syncope type R55 Syncope type: unspecified Hypercholesterolemia E78.00 Mild aortic valve stenosis I35.0 Bilateral carotid artery stenosis I65.23
--- NOTE | 2023-10-04 11:53 | PC.NURSE ---
Patient discharged at 1145. All patient belongings brought with patient. Patient left via car with spouse. All IVs removed. Paitent vital signs stable among discharge. Patient received all discharge teaching and relayed understanding. All meds sent to preferred pharmacy.
== END 2023-10-04 11:45 | disposition home or self-care (01) | DRG 287 ==
PROVIDERS: Internal Medicine; Internal Medicine Cardiovascular Disease; Admitting Provider Student in an Organized Health Care Education/Training Program; PCP Internal Medicine; Visit Provider Student in an Organized Health Care Education/Training Program
PROC: B2111ZZ Fluoroscopy of Multiple Coronary Arteries using Low Osmolar Contrast (ICD-10-PCS; principal; 2023-10-03 16:30)
DX: R55 Syncope and collapse (principal); R94.39 Abnormal result of other cardiovascular function study; E78.00 Pure hypercholesterolemia, unspecified; I65.23 Occlusion and stenosis of bilateral carotid arteries; F17.220 Nicotine dependence, chewing tobacco, uncomplicated; I25.118 Atherosclerotic heart disease of native coronary artery with other forms of angina pectoris; I25.84 Coronary atherosclerosis due to calcified coronary lesion; Z98.61 Coronary angioplasty status; I10 Essential (primary) hypertension; E66.9 Obesity, unspecified; Z68.30 Body mass index [BMI] 30.0-30.9, adult; F32.A Depression, unspecified; Z86.73 Personal history of transient ischemic attack (TIA), and cerebral infarction without residual deficits; E11.40 Type 2 diabetes mellitus with diabetic neuropathy, unspecified; E11.649 Type 2 diabetes mellitus with hypoglycemia without coma; H54.62 Unqualified visual loss, left eye, normal vision right eye; M81.8 Other osteoporosis without current pathological fracture; K21.9 Gastro-esophageal reflux disease without esophagitis; H40.9 Unspecified glaucoma; G47.33 Obstructive sleep apnea (adult) (pediatric); I35.0 Nonrheumatic aortic (valve) stenosis; T46.1X1A Poisoning by calcium-channel blockers, accidental (unintentional), initial encounter; T46.4X1A Poisoning by angiotensin-converting-enzyme inhibitors, accidental (unintentional), initial encounter; T42.6X1A Poisoning by other antiepileptic and sedative-hypnotic drugs, accidental (unintentional), initial encounter; T50.1X1A Poisoning by loop [high-ceiling] diuretics, accidental (unintentional), initial encounter; T44.7X1A Poisoning by beta-adrenoreceptor antagonists, accidental (unintentional), initial encounter; Y92.009 Unspecified place in unspecified non-institutional (private) residence as the place of occurrence of the external cause
CPT/HCPCS: 36415; 36416; 70450; 71045; 80053; 80061; 80306; 81003; 82607; 82746; 82962; 83036; 83540; 83550; 83721; 83735; 84100; 84145; 84443; 84484; 85025; 93005; 93454; 93571; 93880; 94664; 96372; 96374; 96375; 96376; 97161; 99152; 99153; C1760; C1769; C1887; C1894; C9113; G0269; J1644; J1650; J1815; J2250; J2405; J3010; J3490; J7030; Q0163; Q9967

== ENCOUNTER → 2024-02-24 11:17 | Outpatient (BNVA) | payer OTHER, SELFPAY | PROVIDERS: PCP Internal Medicine; Visit Provider Nurse Practitioner Family | DX: I35.0 Nonrheumatic aortic (valve) stenosis (principal) | CPT/HCPCS: 36415; 80048; 83880 ==

== ENCOUNTER → 2024-03-06 09:00 | Outpatient (BNVA) | payer OTHER, SELFPAY | PROVIDERS: PCP Internal Medicine; Visit Provider Student in an Organized Health Care Education/Training Program | DX: S82.151A Displaced fracture of right tibial tuberosity, initial encounter for closed fracture (principal); W13.3XXA Fall through floor, initial encounter | CPT/HCPCS: 73560; 73565 ==

== ENCOUNTER 2024-03-06 12:06 | Outpatient (CLI) | payer OTHER, SELFPAY | END 2024-03-06 12:07 | disposition home or self-care (01) | LOC: SPT 12:07 | PROVIDERS: PCP Internal Medicine; Visit Provider Student in an Organized Health Care Education/Training Program | DX: Z46.89 Encounter for fitting and adjustment of other specified devices (principal); S89.91XD Unspecified injury of right lower leg, subsequent encounter; X58.XXXD Exposure to other specified factors, subsequent encounter | CPT/HCPCS: 99204; L1830 ==

== ENCOUNTER 2024-03-09 14:01 | Outpatient (CLI) | payer OTHER, SELFPAY ==
--- NOTE | 2024-03-09 15:00 | CT_ITS ---
WS: [id number] CT RIGHT KNEE, NONCONTRAST HISTORY: right knee injury/possible fracture Technique: All CT scans at [facility] use at least one of these dose optimization techniques: automated exposure control; mA and/or kV adjustment per patient size (includes targeted exams where dose is matched to clinical indication); or iterative reconstruction. DLP: 574.55 mGy.cm COMPARISON: 03/06/2024 radiograph Acute comminuted fracture involving the lateral tibial plateau with extension anteriorly through the tibial tubercle. Comminuted fracture through the tibial tubercle is not displaced. The fracture invol ves the lateral tibial plateau. Fracture is noted beginning in the lateral tibial spine through the t ibial metaphysis. Fracture depression is only 2 to 3 mm. No loose body or fragment within the joint s pace. Fracture extends 5.6 cm in length from the lateral tibial plateau inferiorly. Medial tibial plateau is normal. Proximal fibula is normal. Normal patella. There is a small suprapatellar joint effusion and a moderate amount of edema surrounding the knee. Ex tensive vascular calcifications. CT/CT knee RT wo con* [id number] IMPRESSION: 1. Acute, mildly comminuted but nondisplaced fracture involving the lateral ti bial plateau with extension through the tibial tubercle. 2. 2 to 3 mm depression of the fracture along the lateral tibial plateau. 3. Advanced atherosclerotic calcifications within the visualized arteries surr ounding the knee. Dr. Lentz was not available to discuss this report. This is a known fracture a nd patient does have a brace. Mr. Garay was sent home and reminded to continu e wearing his brace and follow-up with Dr. Lentz as previously arranged.
== END 2024-03-09 14:02 | disposition home or self-care (01) ==
LOC: RAD 14:01
PROVIDERS: PCP Internal Medicine; Visit Provider Student in an Organized Health Care Education/Training Program
DX: S82.122A Displaced fracture of lateral condyle of left tibia, initial encounter for closed fracture (principal); X58.XXXA Exposure to other specified factors, initial encounter; M61.461 Other calcification of muscle, right lower leg
CPT/HCPCS: 73700

== ENCOUNTER 2024-03-22 07:45 | Outpatient (CLI) | payer OTHER, SELFPAY ==
--- NOTE | 2024-03-22 07:45 | USCV_ITS ---
Dominick Garay Age: 69 Gender: M : 1955 Exam Date: 03/22/2024 08:14 Ordering Phys: Perla Holguin Technologist: Exam Location: [facility] [place] Indication: murmur BP: 134 / 75 HR: 61 Rhythm: Sinus Technical Quality: Adequate MEASUREMENTS (Male / Female) Normal Values 2D ECHO LV Diastolic Diameter PLAX 3.7 cm 4.2 - 5.9 / 3.9 - 5.3 cm IVS Diastolic Thickness 2.1 cm 0.6 - 1.0 / 0.6 - 0.9 cm IVS Systolic Thickness 2.1 cm LVPW Diastolic Thickness 2.2 cm 0.6 - 1.0 / 0.6 - 0.9 cm LVPW Systolic Thickness 2.3 cm LVOT Diameter 2.5 cm LV Ejection Fraction 2D Teich 52.5 % LV Ejection Fraction MOD 4C 49.2 % LV Ejection Fraction MOD 2C 46.2 % LV Ejection Fraction 2C AL 45.0 % LA Diameter 3.4 cm RA Systolic Volume 4C AL 32.3 ml RA Systolic Volume 4C MOD 31.8 ml LA Sys Volume AL 61.9 cm cubed LA Sys Volume Index AL 31.4 cm cubed/m squared Aorta at Sinotubular Diameter 2.9 cm IVC Diameter 2.2 cm DOPPLER AV Peak Velocity 241.3 cm/s LVOT Peak Velocity 83.0 cm/s AV Area Cont Eq vti 1.9 cm squared AV Area Cont Eq pk 1.7 cm squared MV Peak Velocity 123.0 cm/s MV Area PHT 3.4 cm squared Mitral E to A Ratio 1.1 TV Peak Velocity 204.0 cm/s TR Peak Velocity 291.0 cm/s TR Peak Gradient 33.9 mmHg TV Peak E Velocity 97.0 cm/s Right Atrial Pressure 3.0 mmHg Pulmonary Artery Systolic Pressu 36.9 mmHg PV Peak Velocity 88.0 cm/s FINDINGS Left Ventricle Normal left ventricular size, systolic function and wall thickness, with no regional wall motion abnormalities. Left ventricular ejection fraction is estimated at 55 %. Grade I/IV diastolic dysfunction (abnormal relaxation filling pattern), normal to mildly elevated filling pressures. Right Ventricle The right ventricle is normal in size and function. Right Atrium The right atrium is normal in size. Left Atrium Moderately increased left atrial size. Mitral Valve Moderately thickened mitral valve. No mitral valve stenosis. Moderate-severe mitral valve regurgitation. Aortic Valve Severe aortic valve calcification. Mild aortic valve stenosis, mean gradient 11.1 mmHg, VICTORINA 1.9 cm squared. Tricuspid Valve Structurally normal tricuspid valve without significant stenosis or regurgitation. Pulmonary artery systolic pressure is normal. Pulmonic Valve Structurally normal pulmonic valve without significant stenosis. There is no pulmonic regurgitation. Pericardium Normal pericardium without effusion. Aorta Normal ascending aorta dimension. IVC The inferior vena cava appears normal. CONCLUSIONS Normal left ventricular size, systolic function and wall thickness, with no regional wall motion abnormalities. Left ventricular ejection fraction is estimated at 55 %. Grade I/IV diastolic dysfunction (abnormal relaxation filling pattern), normal to mildly elevated filling pressures. Moderately increased left atrial size. Moderately thickened mitral valve. No mitral valve stenosis. Moderate-severe mitral valve regurgitation. Severe aortic valve calcification. Mild aortic valve stenosis, mean gradient 11.1 mmHg, VICTORINA 1.9 cm squared. No regurgitation. There is no pericardial effusion. Right atrial pressure is around 5 mm of mercury. Levon Villa MD (Electronically Signed) Final Date: 22 March 2024 22:33 S
== END 2024-03-22 07:46 | disposition home or self-care (01) ==
LOC: RAD 07:46
PROVIDERS: PCP Nurse Practitioner; Visit Provider Nurse Practitioner Family
DX: I65.23 Occlusion and stenosis of bilateral carotid arteries (principal); I50.30 Unspecified diastolic (congestive) heart failure; I51.7 Cardiomegaly; I34.0 Nonrheumatic mitral (valve) insufficiency; I34.81 Nonrheumatic mitral (valve) annulus calcification; I70.0 Atherosclerosis of aorta; R42 Dizziness and giddiness
CPT/HCPCS: 93306

== ENCOUNTER 2024-04-11 09:37 | Outpatient (CLI) | payer OTHER, SELFPAY ==
--- NOTE | 2024-04-11 09:40 | CTR_ITS ---
PROCEDURE INFORMATION: Exam: CTA Head With Contrast, Arteriography Exam date and time: 04/11/2024 10:15 AM Age: 69 years old Clinical indication: Dizziness and giddiness; Additional info: Dizziness/bilateral carotid artery stenosis TECHNIQUE: Imaging protocol: Computed tomographic angiography of the head with contrast. Exam focused on the arteries. 3D rendering (Not supervised by radiologist): MIP and/or 3D reconstructed images were created by the technologist. Radiation optimization: All CT scans at this facility use at least one of these dose optimization techniques: automated exposure control; mA and/or kV adjustment per patient size (includes targeted exams where dose is matched to clinical indication); or iterative reconstruction. Contrast material: OMNI 350; Contrast volume: 100 ml; Contrast route: INTRAVENOUS (IV); COMPARISON: CT head wo con* [id number] 10/02/2023 3:10 PM RADIATION DOSE METRICS: Total DLP (mGy-cm): 1260.13 FINDINGS: ANTERIOR CIRCULATION: Right internal carotid artery: Intracranial segment is patent with no significant stenosis. No aneurysm. Right middle cerebral artery: No occlusion or significant stenosis. No aneurysm. Right anterior cerebral artery: No occlusion or significant stenosis. No aneurysm. Left internal carotid artery: Intracranial segment is patent with no significant stenosis. No aneurysm. Left middle cerebral artery: No occlusion or significant stenosis. No aneurysm. Left anterior cerebral artery: No occlusion or significant stenosis. No aneurysm. POSTERIOR CIRCULATION: Right vertebral artery: No occlusion or significant stenosis. No aneurysm. Left vertebral artery: There is heavy calcific and soft plaque noted in the distal left vertebral artery just beyond the skull base. Basilar artery: No occlusion or significant stenosis. No aneurysm. Right posterior cerebral artery: No occlusion or significant stenosis. No aneurysm. Left posterior cerebral artery: No occlusion or significant stenosis. No aneurysm. Veins: Evaluation is limited due to suboptimal contrast bolus timing resulting in significant venous contamination of the images. Brain: No definite mass, mass effect, or midline shift. Cerebral ventricles: No ventriculomegaly. Orbital cavities: The patient is post bilateral cataract surgery. There is an implant noted lateral to the left globe. There is a round radiodensity noted along the anterior aspect of the right globe which is indeterminate. Paranasal sinuses: A retention cyst or polyp is noted in the left maxillary antrum. Bones/joints: No acute fracture. Soft tissues: Unremarkable. PROCEDURE INFORMATION: Exam: CTA Neck With Contrast Exam date and time: 04/11/2024 10:15 AM Age: 69 years old Clinical indication: Dizziness and giddiness; Additional info: Dizziness/bilateral carotid artery stenosis TECHNIQUE: Imaging protocol: Computed tomographic angiography of the neck with contrast. Exam focused on the cervical segments of the vasculature. 3D rendering (Not supervised by radiologist): MIP and/or 3D reconstructed images were created by the technologist. Radiation optimization: All CT scans at this facility use at least one of these dose optimization techniques: automated exposure control; mA and/or kV adjustment per patient size (includes targeted exams where dose is matched to clinical indication); or iterative reconstruction. Contrast material: OMNI 350; Contrast volume: 100 ml; Contrast route: INTRAVENOUS (IV); COMPARISON: CT head wo con* [id number] 10/02/2023 3:10 PM RADIATION DOSE METRICS: Total DLP (mGy-cm): 1260.13 FINDINGS: Right common carotid artery: No stenosis. No dissection or occlusion. Right internal carotid artery: There is heavy calcific atheromatous plaque at the origin of the right internal carotid artery causing less than 40% stenosis. Right external carotid artery: No occlusion or stenosis of the origin. Left common carotid artery: There is heavy calcific atheromatous plaque at the left carotid bulb extending into the internal carotid artery causing less than 40% stenosis. Left internal carotid artery: No stenosis of the extracranial segment. No dissection or occlusion. Left external carotid artery: No occlusion or stenosis of the origin. Right vertebral artery: No stenosis. No dissection or occlusion. Left vertebral artery: There is impingement upon the left cervical vertebral artery as it passes between the C1 and C2 foramen transverse area due to degenerative bony productive change and prominent uncovertebral spurring. Soft tissues: Normal. No significant soft tissue swelling. Bones/joints: Degenerative changes are noted in the cervical spine. There is compression of the upper C6 and C7 vertebral bodies, possibly due to Schmorl's node. CT/CT angio headneck* [id number] IMPRESSION: No acute intracranial large vessel occlusion. IMPRESSION: Heavy calcific atheromatous plaque, less than 40% stenosis in the carotids. REFERENCES: NASCET CRITERIA. The degree of stenosis in the cervical segment of the internal carotid artery is based on NASCET criteria. Normal is no stenosis. Mild is less than 50% stenosis. Moderate is 50-69% stenosis. Severe is 70% to 99% stenosis. Total occlusion is no detectable patent lumen.
[2024-04-11] MEDS: iohexol 350 mg/mL 500 mL Btl (per mL) IV (10:32)
== END 2024-04-11 09:38 | disposition home or self-care (01) ==
PROVIDERS: PCP Nurse Practitioner; Visit Provider Nurse Practitioner Family
DX: I65.23 Occlusion and stenosis of bilateral carotid arteries (principal); M50.21 Other cervical disc displacement, high cervical region; R42 Dizziness and giddiness
CPT/HCPCS: 70496; 70498

== ENCOUNTER 2024-09-28 13:50 | Outpatient (CLI) | payer OTHER, SELFPAY ==
--- NOTE | 2024-09-28 13:56 | CT_ITS ---
WS: [id number] CT ABDOMEN AND PELVIS NONCONTRAST HISTORY: ABDOMINAL DISTENTION TECHNIQUE: Imaging performed through the abdomen and pelvis. Coronal and sagittal reformats are submitted. All CT scans at [facility] use at least one of these dose optimization techniques: automated exposure control; mA and/or kV adjustment per patient size (includes targeted exams where dose is matched to clinical indication); or iterative reconstruction. DLP: 880.90 mGy.cm COMPARISON: None available. Lower thorax: Lung bases are clear. Visualized heart is normal. No hiatal hernia. Liver: Mildly enlarged liver with diffuse hepatic steatosis. Gallbladder: Normal gallbladder. No pericholecystic fluid or cholelithiasis. No gallbladder wall thickening. Pancreas: Marked pancreatic atrophy. Very little pancreatic tissue is identified. Spleen: Normal. Adrenal glands: Normal. No mass. Right kidney: Mild perinephric stranding. No obstruction. There are portions of the RIGHT ureter they're very slightly prominent which may be due to peristalsis. Left kidney: Mild perinephric stranding with no obstruction. Aorta: Mild atherosclerosis abdominal aorta with no aneurysm. No free fluid, intraperitoneal air or significant lymphadenopathy. GI tract: Stomach is distended with food products. No small bowel obstruction. Normal appendix. No colitis. Abdominal wall: Ventral abdominal wall hernia contains fat only. Pelvis: Urinary bladder is well distended. Prostate gland is enlarged encroaching into the bladder. Prostate measures 6.2 x 7.3 x 7.3 cm. No free fluid in the pelvis. No adenopathy. Osseous structures: Unremarkable. CT/CT abdomen pelvis wo con [id number] IMPRESSION: 1. Hepatic steatosis and hepatomegaly. 2. No renal obstruction. 3. No ascites. 4. Markedly enlarged prostate gland.
--- NOTE | 2024-09-28 13:56 | CT_ITS ---
WS: [id number] CT HEAD NONCONTRAST HISTORY: INCREASED HEADACHES TECHNIQUE: Contiguous axial imaging performed through the brain. Bone and soft tissue windows. Sagittal and coronal reformats reviewed. All CT scans at [facility] use at least one of these dose optimization techniques: automated exposure control; mA and/or kV adjustment per patient size (includes targeted exams where dose is matched to clinical indication); or iterative reconstruction. DLP: 1188.58 mGy.cm COMPARISON: 04/11/2024, 10/02/2023 No acute intracranial hemorrhage, midline shift or mass effect. Moderate symmetric atrophy and small vessel disease. Small lacunar infarcts in the basal ganglia are stable. Greater distribution of lacunar infarcts on the RIGHT. Infarcts extend into the RIGHT ny radiata. Minimal cerebellar atrophy. Ventricles: Normal size with no hydrocephalus. No inferior displacement of the cerebellar tonsils. Paranasal sinuses: 10 mm mucous retention cyst LEFT maxillary sinus. Mastoid air cells: Well pneumatized. Calvarium and scalp: Skull is intact with no soft tissue edema or swelling. CT/CT head wo con* [id number] IMPRESSION: 1. No acute intracranial hemorrhage or edema. 2. Bilateral chronic lacunar infarcts as described above. 3. Moderate microvascular white matter disease.
== END 2024-09-28 13:51 | disposition home or self-care (01) ==
PROVIDERS: PCP Nurse Practitioner; Visit Provider Nurse Practitioner
DX: Z01.89 Encounter for other specified special examinations (principal); G31.89 Other specified degenerative diseases of nervous system; I67.89 Other cerebrovascular disease; I63.81 Other cerebral infarction due to occlusion or stenosis of small artery; M27.40 Unspecified cyst of jaw; K76.0 Fatty (change of) liver, not elsewhere classified; R16.0 Hepatomegaly, not elsewhere classified; N40.0 Benign prostatic hyperplasia without lower urinary tract symptoms; K86.89 Other specified diseases of pancreas; R93.421 Abnormal radiologic findings on diagnostic imaging of right kidney; R93.422 Abnormal radiologic findings on diagnostic imaging of left kidney; I70.0 Atherosclerosis of aorta; K43.9 Ventral hernia without obstruction or gangrene
CPT/HCPCS: 70450; 74176

== ENCOUNTER 2024-10-29 11:01 | Outpatient (CLI) | payer OTHER, SELFPAY | END 2024-10-29 11:02 | disposition home or self-care (01) | PROVIDERS: PCP Nurse Practitioner; Visit Provider Urology | DX: R97.20 Elevated prostate specific antigen [PSA] (principal) | CPT/HCPCS: 36415; 84153 ==

== ENCOUNTER → 2025-01-15 10:37 | Outpatient (BNVA) | payer OTHER, SELFPAY | PROVIDERS: PCP Nurse Practitioner; Visit Provider Internal Medicine Cardiovascular Disease | DX: R00.1 Bradycardia, unspecified (principal); I95.9 Hypotension, unspecified; R14.0 Abdominal distension (gaseous); I08.0 Rheumatic disorders of both mitral and aortic valves; F17.220 Nicotine dependence, chewing tobacco, uncomplicated | CPT/HCPCS: 99214 ==

== ENCOUNTER 2025-02-14 07:15 | Day surgery (SDC) | payer OTHER, SELFPAY ==
[2025-02-14 07:27] VITALS: BMI 32.3
[2025-02-14 07:31] VITALS: BP 171/82; PULSE 76; RESP 16; TEMP 36.6; O2SAT 98
--- NOTE | 2025-02-14 08:10 | ANES.PREANE2 ---
Pre-Anesthetic Assessment Height/Weight: Height 1.78 m Weight 102.058 kg Temp Pulse Resp BP Pulse Ox O2 Del Method 97.9 F 76 16 171/82 98 Room Air 02/14/25 07:31 02/14/25 07:31 02/14/25 07:31 02/14/25 07:31 02/14/25 07:31 02/14/25 07:31 Operation Date: 02/14/25 08:00 Proposed Procedures p YUE - Echocardiogram Transesophageal(Not Applicable) - Levon Villa MD Familial anesthetic complications: none Was Beta Miguel taken within 24 hours: Yes Was Clonidine taken within 24 hours: N/A Last intake: Intake Last Liquid Date 02/13/25 Last Liquid Time 05:00 Last Solid Date 02/13/25 Last Solid Time 21:00 Social No alcohol and No tobacco Exam alert, oriented x 3 and clear to auscultation bilaterally Airway Mallampati: Class II Dentition: false History/ROS No significant history except as noted Pulmonary Asthma (seasonal, uses inhaler ) CV/HEM Coronary Artery Disease and Hypertension cardotid stenosis, aortic stenosis, mitral regurg None reported Hepatic liver failure GI abdominal distention Metabolic Hyperlipidemia and Morbid Obesity [facility] [place] None reported Neuropsych Cerebrovascular Accident 2 previous strokes, left sided weakness Anesthetic Plan ASA status: 4 Anesthesia: Anesthesia Evaluation and MAC Risk of > 500 ml blood loss (7ml/kg in children): Yes, adequate IV access and fluids planned Medications/Allergies Home Medications ?Medication ?Instructions ?Recorded ?Confirmed ?Last Taken ?Type cholecalciferol (vitamin D3) 25 1,000 unit PO DAILY 06/27/19 02/11/25 02/11/25 History mcg (1,000 unit) capsule clopidogrel 75 mg tablet 75 mg PO DAILY 06/27/19 02/11/25 02/11/25 History ferrous gluconate 324 mg (38 mg 324 mg PO QMWF 06/27/19 02/11/25 02/11/25 History iron) tablet gabapentin 600 mg tablet 600 mg PO DAILY 06/27/19 02/11/25 02/11/25 History insulin aspart U-100 100 unit/mL 10 unit SUBCUT TID 06/27/19 02/11/25 02/11/25 History (3 mL) subcutaneous pen (Novolog FlexPen U-100 Insulin aspart) insulin glargine 100 unit/mL 100 unit SUBCUT DAILY 06/27/19 02/11/25 02/11/25 History subcutaneous solution (Lantus U-100 Insulin) latanoprost 0.005 % eye drops, 1 drop ophthalmic (eye) QPM 06/27/19 02/11/25 1 Day Ago History emulsion ~10/01/23 meloxicam 7.5 mg tablet 7.5 mg PO DAILY 06/27/19 02/11/25 02/11/25 History montelukast 10 mg tablet 10 mg PO DAILY 06/27/19 02/11/25 02/11/25 History nitroglycerin 0.4 mg sublingual 0.4 mg sublingual Q5M PRN Chest 06/27/19 02/11/25 Unknown History tablet (Nitrostat) Pain pantoprazole 20 mg tablet,delayed 20 mg PO DAILY 02/19/20 02/11/25 02/11/25 History release timolol maleate 0.5 % eye drops 1 drp ophthalmic (eye) BID 02/19/20 02/11/25 1 Day Ago History ~10/01/23 ezetimibe 10 mg tablet 10 mg PO DAILY 08/25/23 02/11/25 02/11/25 History Lactobacillus acidophilus 1 tab PO DAILY 10/02/23 02/11/25 02/11/25 History azelastine 137 mcg (0.1 %) nasal 2 spray intranasal BID 10/02/23 02/11/25 1 Day Ago History spray ~10/01/23 brimonidine 0.2 % eye drops 1 drp ophthalmic (eye) BID 10/02/23 02/11/25 1 Day Ago History ~10/01/23 citalopram 40 mg tablet 20 mg PO DAILY 10/02/23 02/11/25 02/11/25 History cyanocobalamin (vitamin B-12) 500 500 mcg PO DAILY 10/02/23 02/11/25 02/11/25 History mcg tablet dexamethasone 0.1 % eye 1 drp ophthalmic (eye) TID 10/02/23 02/11/25 1 Day Ago History drops,suspension ~10/01/23 diclofenac sodium 1 % topical gel 4 g topical QID 10/02/23 02/11/25 Unknown History empagliflozin 25 mg tablet 25 mg PO DAILY 10/02/23 02/11/2502/11/25 History famotidine 20 mg tablet 20 mg PO BID 10/02/23 02/11/25 02/11/25 History loratadine 10 mg tablet 10 mg PO DAILY 10/02/23 02/11/25 02/11/25 History prednisolone acetate 1 % eye 1 drp ophthalmic (eye) QID 10/02/23 02/11/25 1 Day Ago History drops,suspension ~10/01/23 sennosides 8.6 mg tablet (senna) 8.6 mg PO DAILY 10/02/23 02/11/25 Unknown History tamsulosin 0.4 mg capsule 0.4 mg PO DAILY 10/02/23 02/11/25 02/11/25 History furosemide 40 mg tablet 40 mg PO DAILY #90 tabs 02/28/24 02/11/25 02/11/25 Rx potassium chloride 20 mEq 20 meq PO DAILY #90 tabs 03/02/24 02/11/25 02/11/25 Rx tablet,extended release Crutches #1 ea 03/06/24 01/15/25 Unknown Rx Knee Immobilizer #1 ea 03/06/24 01/15/25 Unknown Rx lisinopril 10 mg tablet 10 mg PO DAILY #90 tabs 01/15/25 02/11/25 02/11/25 Rx metoprolol succinate 25 mg 25 mg PO DAILY #90 tabs 01/15/25 02/11/25 02/11/25 Rx tablet,extended release 24 hr Allergies Allergy/AdvReac Type Severity Reaction Status Date / Time cortisone Allergy Severe ALGY-Swell Verified 02/11/25 12:09 Lip/Tongue/Throat Ocrnlgr-ULP-GlX Reductase Allergy Intermediate ADR-Muscle Verified 02/11/25 12:09 Inhibitor (Isohdbn-Sau-Vye Pain Reductase Inhibitor) trazodone Allergy Unknown ADR-Itching Verified 02/11/25 12:09 calcitonin Allergy Unknown Verified 02/11/25 12:09 levofloxacin (From Levaquin) Allergy ADR-Nausea Verified 02/11/25 12:09 prednisone Allergy ALGY-Swell Verified 02/11/25 12:09 Lip/Tongue/Throat triamcinolone (From Kenalog) Allergy Unknown Verified 02/11/25 12:09 [facility] Anesthesia Medical History (Updated 01/29/25 @ 19:14 by Linda Gonzalez) Obesity (BMI 30.0-34.9) Hypercholesterolemia Palpitations Acute depression Personality change Bilateral carotid artery stenosis Cerebrovascular disease, acute H/O: CVA (cerebrovascular accident) Diabetic neuropathy Encounter for loop recorder check Chronic lumbosacral pain 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 Osteoporosis, idiopathic GERD without esophagitis Glaucoma Benign essential hypertension Type 2 diabetes mellitus without complications Mixed hyperlipidemia Seizure-like activity Memory loss Claustrophobia Obstructive sleep apnea Cryptogenic stroke Surgical History History of PTCA Hx of eye surgery H/O arthroscopic knee surgery Family History Father CAD (coronary artery disease) Family/Other Cancer Diabetes Grandmother Dementia Mother Diabetes Brother Diabetes CAD (coronary artery disease) Sister Diabetes Lung disease Other Hypertension Myocardial infarction Denies family history of Clotting disorder Chronic kidney disease (CKD) Suicide Anesthesia complication Bleeding disorder Stroke Social History Smoking and tobacco/nicotine status: current every day tobacco/nicotine user (chewing tobacco) smokeless tobacco Smokeless tobacco user: chewing tobacco Alcohol intake: former Former alcohol use details: quit 10 plus years ago Substance/Drug Use: never Lives independently: Yes Household members: spouse and children Housing: House Marital status: Number of children: 3 Number of grandchildren: 4 Highest education level completed: High School Graduate service: Yes branch: [employer] Assignments: Outside [employer] ([employer]) and Deployed Known or Potential Exposure: Other Current occupational status: retired Pets and animals: Yes Pets & animals: dog(s) and bird(s) Do you think of yourself as: Straight/Heterosexual Current gender identity: Male Special edvin needs: No Agree to transfusion: Yes Data Anesthesia Cardiac Studies: Echocardiogram 03/22/24 Sestamibi Stress Test (Cardiology) 08/31/23 Cardiac Event Monitor 10/12/23
--- NOTE | 2025-02-14 09:30 | PC.NURSE ---
dr. ornelas in an emergent cath case. Pt did not want to wait and asked to reschedule procedure.
== END 2025-02-14 09:00 | disposition home or self-care (01) ==
PROVIDERS: PCP Nurse Practitioner; Visit Provider Internal Medicine Cardiovascular Disease
PROC: (CPT 93312; principal; 2025-02-14 08:00)
DX: Z53.8 Procedure and treatment not carried out for other reasons (principal)
CPT/HCPCS: 36416; 82962; J2704; J7030; J9999

== ENCOUNTER 2025-03-14 07:27 | Day surgery (SDC) | payer OTHER, SELFPAY ==
--- NOTE | 2025-03-14 07:34 | USCV_ITS ---
Dominick Garay Age: 70 Gender: M : 1955 Exam Date: 03/14/2025 07:57 Ordering Phys: Levon Villa MD ([email or web address]) Technologist: TITI [place]am [place] [facility] [place] Indication: eval AV and MV BP: / HR: Rhythm: Sinus Technical Quality: Adequate MEASUREMENTS (Male / Female) Normal Values Medications Patient given IV sedation by anesthesia service, for details please refer to the anesthesia report. Complications None. Proc. Components The patient was brought to the YUE examination room in a fasting state after obtaining an informed consent. The YUE probe was passed into the posterior pharynx , mid-esophagus, distal esophagus, and gastric fundus. YUE was performed at multiple levels. The patient tolerated the procedure well and there were no complications. FINDINGS Left Ventricle Normal left ventricular size, systolic function and wall thickness, with no regional wall motion abnormalities. Left ventricular ejection fraction is estimated at 55 %. Right Ventricle Normal right ventricular size and systolic function. Right Atrium Normal right atrial size. Left Atrium Mildly increased left atrial size. IA Septum No [id number] shunt seen at the atrial level. No right-to- left shunt seen at the atrial level with contrast. LA Appendage No thrombus visualized in the left atrial appendage. Mitral Valve Mildly thickened mitral valve. No mitral valve stenosis. Mild mitral valve regurgitation. Aortic Valve Severe aortic valve calcification. Moderate aortic valve stenosis, VICTORINA 1.4 cm squared. Trace aortic valve regurgitation. Tricuspid Valve Trace tricuspid valve regurgitation. Pulmonic Valve Normal pulmonic valve structure. No pulmonic valve stenosis or regurgitation. Pericardium No pericardial effusion. Aorta Normal diameter of the aortic root and ascending thoracic aorta. CONCLUSIONS Normal left ventricular size, systolic function and wall thickness, with no regional wall motion abnormalities. Left ventricular ejection fraction is estimated at 55 %. Severe aortic valve calcification. Moderate aortic valve stenosis, VICTORINA 1.4 cm squared. Trace aortic valve regurgitation. There is no pericardial effusion. No [id number] shunt seen at the atrial level. No right-to- left shunt seen at the atrial level with contrast. No thrombus visualized in the left atrial appendage. Levon Villa MD (Electronically Signed) Final Date: 19 March 2025 19:01 S
[2025-03-14 07:45] VITALS: BP 147/70; PULSE 72; RESP 17; TEMP 36.6; O2SAT 97; BMI 33.7
--- NOTE | 2025-03-14 08:03 | W.PM.OPSFHP ---
Same Day Surgery H&P Indication for Procedure/HPI DATE OF PROCEDURE: March 14, 2025 CHIEF COMPLAINT/INDICATIONFOR SURGICAL PROCEDURE: Aortic valve stenosis Mitral valve regurgitation Worsening of symptoms PREOP DIAGNOSIS: Aortic valve stenosis/mitral valve regurgitation and disorder PLANNED PROCEDURE: Transesophageal echocardiogram is scheduled under anesthesia for worsening of symptoms with valvular disorder in order to assess the severity of aortic valve stenosis and mitral valve regurgitation before referring patient for surgery Operation Date: 03/14/25 08:30 Proposed Procedures p YUE - Echocardiogram Transesophageal(Not Applicable) - Levon Villa MD As above Medications/Allergies* Home Medications ?Medication ?Instructions ?Recorded ?Confirmed ?Type cholecalciferol (vitamin D3) 25 1,000 unit PO DAILY 06/27/19 03/14/25 History mcg (1,000 unit) capsule clopidogrel 75 mg tablet 75 mg PO DAILY 06/27/19 03/14/25 History ferrous gluconate 324 mg (38 mg 324 mg PO QMWF 06/27/19 03/14/25 History iron) tablet gabapentin 600 mg tablet 600 mg PO DAILY 06/27/19 03/14/25 History insulin aspart U-100 100 unit/mL 10 unit SUBCUT TID 06/27/19 03/14/25 History (3 mL) subcutaneous pen (Novolog FlexPen U-100 Insulin aspart) insulin glargine 100 unit/mL 55 unit SUBCUT BID 06/27/19 03/14/25 History subcutaneous solution (Lantus U-100 Insulin) latanoprost 0.005 % eye drops, 1 drop ophthalmic (eye) QPM 06/27/19 03/14/25 History emulsion nitroglycerin 0.4 mg sublingual 0.4 mg sublingual Q5M PRN Chest 06/27/19 03/14/25 History tablet (Nitrostat) Pain pantoprazole 20 mg tablet,delayed 20 mg PO DAILY 02/19/20 03/14/25 History release timolol maleate 0.5 % eye drops 1 drp ophthalmic (eye) BID 02/19/20 03/14/25 History ezetimibe 10 mg tablet 10 mg PO DAILY 08/25/23 03/14/25 History Lactobacillus acidophilus 1 tab PO DAILY 10/02/23 03/14/25 History azelastine 137 mcg (0.1 %) nasal 2 spray intranasal BID 10/02/23 03/14/25 History spray brimonidine 0.2 % eye drops 1 drp ophthalmic (eye) BID 10/02/23 03/14/25 History citalopram 40 mg tablet 20 mg PO DAILY 10/02/23 03/14/25 History cyanocobalamin (vitamin B-12) 500 500 mcg PO DAILY 10/02/23 03/14/25 History mcg tablet dexamethasone 0.1 % eye 1 drp ophthalmic (eye) TID 10/02/23 03/14/25 History drops,suspension diclofenac sodium 1 % topical gel 4 g topical QID 10/02/23 03/14/25 History empagliflozin 25 mg tablet 25 mg PO DAILY 10/02/23 03/14/25 History (Jardiance) famotidine 20 mg tablet 20 mg PO BID 10/02/23 03/14/25 History prednisolone acetate 1 % eye 1 drp ophthalmic (eye) QID 10/02/23 03/14/25 History drops,suspension sennosides 8.6 mg tablet (senna) 8.6 mg PO DAILY 10/02/23 03/14/25 History tamsulosin 0.4 mg capsule 0.4 mg PO DAILY 10/02/23 03/14/25 History qzpuow-drftjovk-loxhfta 6 cap PO .BEFORE EACH MEAL 03/12/25 03/14/25 History (pork)36,000-114,000-180k unit capsule,del rel (Creon) Allergies/Adverse Reactions Allergy/AdvReac Type Severity Reaction Status Date / Time cortisone Allergy Severe ALGY-Swell Verified 03/14/25 07:39 Lip/Tongue/Throat Gritqaw-RQI-KqG Reductase Allergy Intermediate ADR-Muscle Verified 03/14/25 07:39 Inhibitor (Liikphf-Psg-Vzh Pain Reductase Inhibitor) trazodone Allergy Unknown ADR-Itching Verified 03/14/25 07:39 calcitonin Allergy Unknown Verified 03/14/25 07:39 levofloxacin (From Levaquin) Allergy ADR-Nausea Verified 03/14/25 07:39 prednisone Allergy ALGY-Swell Verified 03/14/25 07:39 Lip/Tongue/Throat triamcinolone (From Kenalog) Allergy Unknown Verified 03/14/25 07:39 Current Medications: Generic Name Dose Route Start Last Admin Trade Name Freq PRN Reason Stop Dose Admin Sodium Chloride 1,000 mls @ 15 mls/hr 10/30/25 07:31 03/14/25 07:58 Sodium Chloride 0.9% IV 03/15/25 07:30 15 mls/hr .Q24H PRN Administration COLONOSCOPY FLUIDS Pertinent History/Comorbid Conditions* Medical History (Updated 01/29/25 @ 19:14 by Linda Gonzalez) Obesity (BMI 30.0-34.9) Hypercholesterolemia Palpitations Acute depression Personality change Bilateral carotid artery stenosis Cerebrovascular disease, acute H/O: CVA (cerebrovascular accident) Diabetic neuropathy Encounter for loop recorder check Chronic lumbosacral pain 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 Osteoporosis, idiopathic GERD without esophagitis Glaucoma Benign essential hypertension Type 2 diabetes mellitus without complications Mixed hyperlipidemia Seizure-like activity Memory loss Claustrophobia Obstructive sleep apnea Cryptogenic stroke Surgical History (Updated 10/02/23 @ 14:07 by Toni Reynolds MD) History of PTCA Hx of eye surgery H/O arthroscopic knee surgery Family History Diabetes Family/Other Mother Brother Sister CAD (coronary artery disease) Father Brother Dementia Grandmother Myocardial infarction Lung disease Sister Cancer Family/Other Hypertension Denies family history of Clotting disorder Chronic kidney disease (CKD) Suicide Anesthesia complication Bleeding disorder Stroke Social History Smoking and tobacco/nicotine status: current every day tobacco/nicotine user (chewing tobacco) smokeless tobacco Smokeless tobacco user: chewing tobacco Alcohol intake: former Former alcohol use details: quit 10 plus years ago Substance/Drug Use: never Lives independently: Yes Household members: spouse and children Housing: House Marital status: Number of children: 3 Number of grandchildren: 4 Highest education level completed: High School Graduate service: Yes branch: [employer] Assignments: Outside [facility] ([employer]) and Deployed Known or Potential Exposure: Other Current occupational status: retired Pets and animals: Yes Pets & animals: dog(s) and bird(s) Do you think of yourself as: Straight/Heterosexual Current gender identity: Male Special edvin needs: No Agree to transfusion: Yes Pertinent Exam Findings alert, oriented x 3, clear to auscultation bilaterally and regular rate & rhythm Conscious Sedation Assessment Please see anesthesia AIRWAY EVAL/ANESTHESIA PLAN: ASA II, Risks, benefits & alternatives of sedation and/or procedure discussed and Patient agrees to continue as planned Recommendations Surgery/Procedure today Coding Level of Care Code Acute Code for Chg Fwd
--- NOTE | 2025-03-14 08:10 | ANES.PREANE2 ---
Pre-Anesthetic Assessment Height/Weight: Height 1.78 m Weight 106.594 kg Temp Pulse Resp BP Pulse Ox O2 Del Method 97.9 F 72 17 147/70 97 Room Air 03/14/25 07:45 03/14/25 07:45 03/14/25 07:45 03/14/25 07:45 03/14/25 07:45 03/14/25 07:45 Preop Diagnosis: Aortic valve stenosis/mitral valve regurgitation and disorder Operation Date: 03/14/25 08:30 Proposed Procedures p YUE - Echocardiogram Transesophageal(Not Applicable) - Levon Villa MD Familial anesthetic complications: none Was Beta Miguel taken within 24 hours: Yes Was Clonidine taken within 24 hours: N/A Last intake: Intake Last Liquid Date 03/13/25 Last Liquid Time 21:00 Last Solid Date 03/13/25 Last Solid Time 21:00 Social No alcohol and No tobacco Exam alert, oriented x 3, clear to auscultation bilaterally and regular rate & rhythm Airway Dentition: other (no teeth) Comments: Comments: bradshaw CV/HEM Arrythmia, Coronary Artery Disease and Myocardial Infarction MVR AV stenosis Metabolic Diabetes Mellitus and Hyperlipidemia Anesthetic Plan ASA status: 4 Anesthesia: MAC Risk of > 500 ml blood loss (7ml/kg in children): No Medications/Allergies Home Medications ?Medication ?Instructions ?Recorded ?Confirmed ?Last Taken ?Type cholecalciferol (vitamin D3) 25 1,000 unit PO DAILY 06/27/19 03/14/25 03/13/25 History mcg (1,000 unit) capsule clopidogrel 75 mg tablet 75 mg PO DAILY 06/27/19 03/14/25 03/13/25 History ferrous gluconate 324 mg (38 mg 324 mg PO QMWF 06/27/19 03/14/25 03/13/25 History iron) tablet gabapentin 600 mg tablet 600 mg PO DAILY 06/27/19 03/14/25 03/13/25 History insulin aspart U-100 100 unit/mL 10 unit SUBCUT TID 06/27/19 03/14/25 03/13/25 History (3 mL) subcutaneous pen (Novolog FlexPen U-100 Insulin aspart) insulin glargine 100 unit/mL 55 unit SUBCUT BID 06/27/19 03/14/25 03/13/25 History subcutaneous solution (Lantus U-100 Insulin) latanoprost 0.005 % eye drops, 1 drop ophthalmic (eye) QPM 06/27/19 03/14/25 03/13/25 History emulsion nitroglycerin 0.4 mg sublingual 0.4 mg sublingual Q5M PRN Chest 06/27/19 03/14/25 03/13/25 History tablet (Nitrostat) Pain pantoprazole 20 mg tablet,delayed 20 mg PO DAILY 02/19/20 03/14/25 03/13/25 History release timolol maleate 0.5 % eye drops 1 drp ophthalmic (eye) BID 02/19/20 03/14/25 03/13/25 History ezetimibe 10 mg tablet 10 mg PO DAILY 08/25/23 03/14/25 03/13/25 History Lactobacillus acidophilus 1 tab PO DAILY 10/02/23 03/14/25 03/13/25 History azelastine 137 mcg (0.1 %) nasal 2 spray intranasal BID 10/02/23 03/14/25 03/13/25 History spray brimonidine 0.2 % eye drops 1 drp ophthalmic (eye) BID 10/02/23 03/14/25 03/13/25 History citalopram 40 mg tablet 20 mg PO DAILY 10/02/23 03/14/25 03/13/25 History cyanocobalamin (vitamin B-12) 500 500 mcg PO DAILY 10/02/23 03/14/25 03/13/25 History mcg tablet dexamethasone 0.1 % eye 1 drp ophthalmic (eye) TID 10/02/23 03/14/25 03/13/25 History drops,suspension diclofenac sodium 1 % topical gel 4 g topical QID 10/02/23 03/14/25 03/13/25 History empagliflozin 25 mg tablet 25 mg PO DAILY 10/02/23 03/14/25 03/13/25 History (Jardiance) famotidine 20 mg tablet 20 mg PO BID 10/02/23 03/14/25 03/13/25 History prednisolone acetate 1 % eye 1 drp ophthalmic (eye) QID 10/02/23 03/14/25 03/13/25 History drops,suspension sennosides 8.6 mg tablet (senna) 8.6 mg PO DAILY 10/02/23 03/14/25 03/13/25 History tamsulosin 0.4 mg capsule 0.4 mg PO DAILY 10/02/23 03/14/25 03/13/25 History furosemide 40 mg tablet 40 mg PO DAILY #90 tabs 02/28/24 03/14/25 03/13/25 Rx potassium chloride 20 mEq 20 meq PO DAILY #90 tabs 03/02/24 03/14/25 03/13/25 Rx tablet,extended release Crutches #1 ea 03/06/24 01/15/25 03/12/25 Rx Knee Immobilizer #1 ea 03/06/24 01/15/25 03/12/25 Rx lisinopril 10 mg tablet 10 mg PO DAILY #90 tabs 01/15/25 03/14/25 03/13/25 Rx metoprolol succinate 25 mg 25 mg PO DAILY #90 tabs 01/15/25 03/14/25 03/14/25 Rx tablet,extended release 24 hr bpsvrs-nfhxjfru-oebpgyy 6 cap PO .BEFORE EACH MEAL 03/12/25 03/14/25 03/13/25 History (pork)36,000-114,000-180k unit capsule,del rel (Creon) Allergies Allergy/AdvReac Type Severity Reaction Status Date / Time cortisone Allergy Severe ALGY-Swell Verified 03/14/25 07:39 Lip/Tongue/Throat Iualcqb-HHF-PfK Reductase Allergy Intermediate ADR-Muscle Verified 03/14/25 07:39 Inhibitor (Mpjtmtl-Xgj-Uno Pain Reductase Inhibitor) trazodone Allergy Unknown ADR-Itching Verified 03/14/25 07:39 calcitonin Allergy Unknown Verified 03/14/25 07:39 levofloxacin (From Levaquin) Allergy ADR-Nausea Verified 03/14/25 07:39 prednisone Allergy ALGY-Swell Verified 03/14/25 07:39 Lip/Tongue/Throat triamcinolone (From Kenalog) Allergy Unknown Verified 03/14/25 07:39 Current Medications Generic Name Dose Route Start Last Admin Trade Name Freq PRN Reason Stop Dose Admin Sodium Chloride 1,000 mls @ 15 mls/hr 03/14/25 07:31 03/14/25 07:58 Sodium Chloride 0.9% IV 03/15/25 07:30 15 mls/hr .Q24H PRN Administration COLONOSCOPY FLUIDS PFSH Anesthesia Medical History (Updated 01/29/25 @ 19:14 by Linda Gonzalez) Obesity (BMI 30.0-34.9) Hypercholesterolemia Palpitations Acute depression Personality change Bilateral carotid artery stenosis Cerebrovascular disease, acute H/O: CVA (cerebrovascular accident) Diabetic neuropathy Encounter for loop recorder check Chronic lumbosacral pain 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 Osteoporosis, idiopathic GERD without esophagitis Glaucoma Benign essential hypertension Type 2 diabetes mellitus without complications Mixed hyperlipidemia Seizure-like activity Memory loss Claustrophobia Obstructive sleep apnea Cryptogenic stroke Surgical History History of PTCA Hx of eye surgery H/O arthroscopic knee surgery Family History Father CAD (coronary artery disease) Family/Other Cancer Diabetes Grandmother Dementia Mother Diabetes Brother Diabetes CAD (coronary artery disease) Sister Diabetes Lung disease Other Hypertension Myocardial infarction Denies family history of Clotting disorder Chronic kidney disease (CKD) Suicide Anesthesia complication Bleeding disorder Stroke Social History Smoking and tobacco/nicotine status: current every day tobacco/nicotine user (chewing tobacco) smokeless tobacco Smokeless tobacco user: chewing tobacco Alcohol intake: former Former alcohol use details: quit 10 plus years ago Substance/Drug Use: never Lives independently: Yes Household members: spouse and children Housing: House Marital status: Number of children: 3 Number of grandchildren: 4 Highest education level completed: High School Graduate service: Yes branch: [employer] Assignments: Outside [facility] [employer] ([employer]) and Deployed Known or Potential Exposure: Other Current occupational status: retired Pets and animals: Yes Pets & animals: dog(s) and bird(s) Do you think of yourself as: Straight/Heterosexual Current gender identity: Male Special edvin needs: No Agree to transfusion: Yes Data Anesthesia 03/14/25 07:50 Cardiac Studies: Echocardiogram 03/22/24 Sestamibi Stress Test (Cardiology) 08/31/23 Cardiac Event Monitor 10/12/23
[2025-03-14] MEDS: insulin regular-human 100 units/1 mL 10 UNIT IVP (08:17)
[2025-03-14 08:27] LABS: Anion Gap 13.5 (5-19); Blood Urea Nitrogen 31 mg/dL (8-23); Calcium 9.2 mg/dL (8.5-10.5); Carbon Dioxide 29 mmol/L (22-29); Chloride 99 mmol/L (98-107); Creatinine Clr Calc Pharmacy 52.5228; Glucose 280 mg/dL (65-115); Osmolality Calculated 303 mOsm/kg (285-295); Potassium 3.5 mmol/L (3.5-5.1); Sodium 138 mmol/L (136-145)
[2025-03-14 08:55] VITALS: BP 105/55; PULSE 61; RESP 16; TEMP 36.7; O2SAT 97
[2025-03-14 09:20] VITALS: BP 117/59; PULSE 63; RESP 18; O2SAT 96
[2025-03-14 09:44] VITALS: BP 122/68; PULSE 64; RESP 17; O2SAT 97
--- NOTE | 2025-03-14 09:55 | ANE.PACU2 ---
Inpatient post-anesthesia follow up: Airway intact: Yes Vital signs: Temperature 98.1 F Pulse Rate 64 Respiratory Rate 17 Blood Pressure 122/68 Pulse Oximetry 97 Oxygen Delivery Me thod Room Air Oxygen Flow Rate 10 Fraction of Inspir ed Oxygen Hydration adequate: Yes Nausea and vomiting: No Pain level: 1 Mental status: Baseline
== END 2025-03-14 09:57 | disposition home or self-care (01) ==
PROVIDERS: Anesthesiology; PCP Nurse Practitioner; Visit Provider Internal Medicine Cardiovascular Disease
PROC: (CPT 93312; principal; 2025-03-14 08:30)
DX: I34.0 Nonrheumatic mitral (valve) insufficiency (principal); I70.0 Atherosclerosis of aorta; I35.1 Nonrheumatic aortic (valve) insufficiency; I07.1 Rheumatic tricuspid insufficiency; I25.2 Old myocardial infarction; I49.9 Cardiac arrhythmia, unspecified; I25.10 Atherosclerotic heart disease of native coronary artery without angina pectoris; E11.9 Type 2 diabetes mellitus without complications; E78.5 Hyperlipidemia, unspecified; Z79.02 Long term (current) use of antithrombotics/antiplatelets; K21.9 Gastro-esophageal reflux disease without esophagitis; Z79.4 Long term (current) use of insulin; E66.9 Obesity, unspecified; Z68.33 Body mass index [BMI] 33.0-33.9, adult; R00.2 Palpitations; Z86.73 Personal history of transient ischemic attack (TIA), and cerebral infarction without residual deficits; G47.33 Obstructive sleep apnea (adult) (pediatric); Z82.49 Family history of ischemic heart disease and other diseases of the circulatory system; Z83.3 Family history of diabetes mellitus; F17.220 Nicotine dependence, chewing tobacco, uncomplicated
CPT/HCPCS: 36415; 36416; 80048; 82962; 93312; 93320; 93325; J1815; J2371; J2704; J7030; J9999

== ENCOUNTER 2025-04-19 12:29 | Outpatient (CLI) | payer OTHER, SELFPAY ==
[2025-04-19 13:32] LABS: Prostate Specific Antigen 5.420 ng/mL (0-4)
== END 2025-04-19 12:30 | disposition home or self-care (01) ==
LOC: LAB 12:29
PROVIDERS: PCP Nurse Practitioner; Visit Provider Urology
DX: R97.20 Elevated prostate specific antigen [PSA] (principal)
CPT/HCPCS: 36415; 84153